=== PATIENT | male | born 1960 | race Caucasian/White ===

== ENCOUNTER 2016-04-19 13:54 | Emergency (ER) | payer MEDICAID ==
[2015-10-20 09:52] VITALS: BMI 28.5
[~2016-04-19 13:54] MED LIST: ASPIRIN81 MG PO; HYDROCODONE-APA1 TAB PO; METOPROLOL TART50 MG PO; NICODERM C1 PATCH .2 TRANSDERM; NITRO-DUR0.2 MG TRANSDERM; OMEPRAZOLE20 M1 PO; PLAVIX75 MG PO; PRAVACHOL20 MG PO; PREDNISONE20 MG PO; RESTORIL7.5 MG PO; SOMA350 MG PO; TYLENOL W/CODEI1 TAB PO; ULTRAM50 MG PO
[2016-04-19 14:32] LABS: BASOPHILS 0.3 % (0.0-2.0); EOSINOPHILS 4.4 % (0-7); HEMATOCRIT 34.4 % (42.0-54.0); HEMOGLOBIN 10.9 g/dL (13.5-17.5); IMMATURE GRANULOCYTES 0.2 % (0-5); LYMPHOCYTES 22.2 % (15-50); MCHC 31.7 g/dL (31.0-37.0); MCV 85.4 fL (80.0-100.0); MEAN PLATELET VOLUME 9.3 fL (7.4-10.4); NEUTROPHILS 64.9 % (40-80); RBC 4.03 10x6/uL (4.20-6.10); RDW 15.6 % (11.5-14.5); WBC 5.9 10x3/uL (4.8-10.8)
[2016-04-19 14:33] LABS: PLATELET COUNT 264 10x3/uL (130-400)
[2016-04-19 14:45] LABS: ALBUMIN 3.9 g/dL (3.4-5.0); ALKALINE PHOSPHATASE 148 U/L (46-116); ALT (SGPT) 151 U/L (10-68); BILIRUBIN - TOTAL 0.31 mg/dL (0.2-1.3); CALC OSMOLALITY 278 mosm/kg (275-300); CALCIUM 9.1 mg/dL (8.5-10.1); CARBON DIOXIDE 23.4 mmol/L (21.0-32.0); CHLORIDE - SERUM 103 mmol/L (98-107); GLUCOSE 81 mg/dL (74-106); POTASSIUM - SERUM 3.9 mmol/L (3.5-5.1); PROTEIN - SERUM 7.9 g/dL (6.4-8.2); SODIUM 139 mmol/L (136-145); UREA NITROGEN 18 mg/dL (7-18); eGFR NON AFRICAN AMERICAN 82 mL/min (90-120)
[2016-04-19 14:56] LABS: APPEARANCE CLEAR (CLEAR); BILIRUBIN NEGATIVE (NEGATIVE); COLOR YELLOW (YELLOW); GLUCOSE NEGATIVE (NEGATIVE); KETONE NEGATIVE (NEGATIVE); LEUKOCYTE ESTERASE NEGATIVE (NEGATIVE); NITRITE NEGATIVE (NEGATIVE); PROTEIN NEGATIVE (NEGATIVE); UROBILINOGEN NORMAL (NORMAL)
[2016-04-19 14:57] LABS: UDS - AMPHET NEGATIVE QUAL (NEGATIVE); UDS - BARB NEGATIVE QUAL (NEGATIVE); UDS - BENZO POSITIVE QUAL (NEGATIVE); UDS - COCAINE NEGATIVE QUAL (NEGATIVE); UDS - METH NEGATIVE QUAL (NEGATIVE); UDS - OPIATE POSITIVE QUAL (NEGATIVE); UDS - PCP NEGATIVE QUAL (NEGATIVE); UDS - THC NEGATIVE QUAL (NEGATIVE)
== END 2016-04-20 06:30 | disposition home or self-care (01) ==
LOC: D.ER 13:54
PROVIDERS: Emergency Medicine
DX: F32.9 Major depressive disorder, single episode, unspecified (principal); R45.851 Suicidal ideations; I10 Essential (primary) hypertension; Z93.3 Colostomy status; C20 Malignant neoplasm of rectum; F17.200 Nicotine dependence, unspecified, uncomplicated

== ENCOUNTER 2016-06-29 22:48 | Emergency (ER) | payer MEDICAID ==
[2015-10-20 09:52] VITALS: BMI 28.5
[2016-06-30 00:20] LABS: BASOPHILS 0.3 % (0-2); EOSINOPHILS 1.6 % (0-7); HEMATOCRIT 36.2 % (42.0-54.0); HEMOGLOBIN 11.5 g/dL (13.5-17.5); MCH 26.1 pg (26.0-34.0); MCHC 31.8 g/dL (31.0-37.0); MCV 82.1 fL (80.0-100.0); MONOCYTES 13.3 % (2-11); NEUTROPHILS 61.8 % (40-80); PLATELET COUNT 207 10x3/uL (130-400); RBC 4.41 10x6/uL (4.20-6.10); WBC 3.1 10x3/uL (4.8-10.8)
[2016-06-30 00:41] LABS: ALBUMIN 3.6 g/dL (3.4-5.0); ANION GAP 15.5 mmol/L (8-16); BILIRUBIN - TOTAL 0.78 mg/dL (0.2-1.3); CALCIUM 8.8 mg/dL (8.5-10.1); CARBON DIOXIDE 26.5 mmol/L (21.0-32.0); CREATININE - SERUM 1.1 mg/dL (0.6-1.3); MAGNESIUM - SERUM 1.7 mg/dL (1.8-2.4); PROTEIN - SERUM 7.7 g/dL (6.4-8.2)
[2016-06-30 02:50] LABS: APPEARANCE CLEAR (CLEAR); BILIRUBIN NEGATIVE (NEGATIVE); COLOR YELLOW (YELLOW); GLUCOSE NEGATIVE (NEGATIVE); KETONE NEGATIVE (NEGATIVE); LEUKOCYTE ESTERASE NEGATIVE (NEGATIVE); NITRITE NEGATIVE (NEGATIVE); PROTEIN NEGATIVE (NEGATIVE); SPECIFIC GRAVITY 1.015 (1.005-1.020); UROBILINOGEN NORMAL (NORMAL)
[2016-06-30 02:58] LABS: UDS - AMPHET POSITIVE QUAL (NEGATIVE); UDS - BARB NEGATIVE QUAL (NEGATIVE); UDS - BENZO POSITIVE QUAL (NEGATIVE); UDS - COCAINE NEGATIVE QUAL (NEGATIVE); UDS - METH NEGATIVE QUAL (NEGATIVE); UDS - OPIATE NEGATIVE QUAL (NEGATIVE); UDS - PCP NEGATIVE QUAL (NEGATIVE); UDS - THC NEGATIVE QUAL (NEGATIVE)
[2016-06-30 13:51] LABS: ALBUMIN 3.3 g/dL (3.4-5.0); BILIRUBIN - TOTAL 0.54 mg/dL (0.2-1.3); CALCIUM 8.7 mg/dL (8.5-10.1); CREATININE - SERUM 1.2 mg/dL (0.6-1.3); PROTEIN - SERUM 7.2 g/dL (6.4-8.2)
== END 2016-06-30 14:54 | disposition short-term general hospital (02) ==
LOC: D.ER 22:48
PROVIDERS: Emergency Medicine
DX: R45.851 Suicidal ideations (principal); R44.3 Hallucinations, unspecified; F45.9 Somatoform disorder, unspecified; E87.6 Hypokalemia; E83.42 Hypomagnesemia; D64.9 Anemia, unspecified; Z85.048 Personal history of other malignant neoplasm of rectum, rectosigmoid junction, and anus; F19.10 Other psychoactive substance abuse, uncomplicated; F17.200 Nicotine dependence, unspecified, uncomplicated; I10 Essential (primary) hypertension

== ENCOUNTER 2016-07-10 10:20 | Inpatient (IN) | payer MEDICAID ==
[~2016-07-10] VITALS: Ht 188 cm; Wt 101.5 kg
[2016-07-10 11:06] LABS: BASOPHILS 0.3 % (0-2); EOSINOPHILS 0 % (0-7); HEMATOCRIT 37.6 % (42.0-54.0); LYMPHOCYTES 13.4 % (15-50); MCH 26.1 pg (26.0-34.0); MCHC 31.9 g/dL (31.0-37.0); MCV 81.9 fL (80.0-100.0); MONOCYTES 8.6 % (2-11); NEUTROPHILS 77.7 % (40-80); RBC 4.59 10x6/uL (4.20-6.10); RDW 15.8 % (11.5-14.5); WBC 5.7 10x3/uL (4.8-10.8)
[2016-07-10 11:07] LABS: PLATELET COUNT 280 10x3/uL (130-400)
[2016-07-10 11:20] LABS: ALBUMIN 3.7 g/dL (3.4-5.0); ANION GAP 16.1 mmol/L (8-16); BILIRUBIN - TOTAL 0.46 mg/dL (0.2-1.3); CALCIUM 8.3 mg/dL (8.5-10.1); CARBON DIOXIDE 26.3 mmol/L (21.0-32.0); CREATININE - SERUM 1.1 mg/dL (0.6-1.3); POTASSIUM - SERUM 3.4 mmol/L (3.5-5.1); PROTEIN - SERUM 7.7 g/dL (6.4-8.2)
--- NOTE | 2016-07-10 20:16 | NUR ---
RECIEVED PT FROM ER PER STRETCHER. ABLE TO GET UP AND WALK TO BED ON HIS OWN. VS MONITOR. ADMISSION HISTORY AND ASSESSMENT INITIATED. CALL LIGHT IN REACH.
[2016-07-10 20:20] LABS: CKMB 6.2 U/L (0.0-3.6); CREATINE KINASE 215 UL (21-232); TROPONIN-I 0.024 ng/mL (0.000-0.060)
[2016-07-10 20:29] VITALS: BP 176/118
[2016-07-11] VITALS (8 sets, daily range): BP systolic 127–158; BP diastolic 68–104; Ht 188 cm; Wt 101.5 kg
[2016-07-11 01:21] LABS: CREATINE KINASE 190 UL (21-232); TROPONIN-I 0.026 ng/mL (0.000-0.060)
--- NOTE | 2016-07-11 06:16 | NUR ---
PT PROVIDED WITH URINAL TO OBTAIN ORDERED URINE SPECIMEN.
--- NOTE | 2016-07-11 06:55 | NUR ---
URINE SPECIMEN SENT TO LAB. PT HAS ASKED FOR PAIN MEDS. EXPLAINED THAT THERE ARE NO CURRENT ORDERS AND WHEN MD ROUNDS PAIN NEEDS WILL BE ADDRESSED.
[2016-07-11 07:18] LABS: APPEARANCE CLEAR (CLEAR); BILIRUBIN NEGATIVE (NEGATIVE); COLOR YELLOW (YELLOW); GLUCOSE NEGATIVE (NEGATIVE); KETONE NEGATIVE (NEGATIVE); LEUKOCYTE ESTERASE NEGATIVE (NEGATIVE); NITRITE NEGATIVE (NEGATIVE); PROTEIN NEGATIVE (NEGATIVE); SPECIFIC GRAVITY 1.015 (1.005-1.020); UROBILINOGEN NORMAL (NORMAL)
[2016-07-11 07:46] LABS: CKMB 6.3 U/L (0.0-3.6); CREATINE KINASE 158 UL (21-232); TROPONIN-I < 0.017 ng/mL (0.000-0.060)
--- NOTE | 2016-07-11 07:54 | NUR ---
AM ROUNDS - PT AWAKE ON RIGHT SIDE. C/O RECTAL PAIN. RIGHT WRIST AT 100CC/HR. MONITOR SHOWS SR, HR 79. WILL CONTINUE TO MONITOR.
--- NOTE | 2016-07-11 11:35 | HP ---
PATIENT: SERGE BOWLES MEDICAL RECORD: [id number] ACCOUNT: [id number] LOCATION:[address] : 60 ADMISSION DATE: 07/10/16 HISTORY AND PHYSICAL EXAMINATION HISTORY OF PRESENT ILLNESS: Mr. Bowles is a pleasant 55-year-old white male that presents to the Emergency Room with a 1 day history of abdominal pain, has a known history of colon cancer and underwent a colectomy by Dr. Mina several years ago. Dr. Delatorre is his oncologist, he has not seen her in some time, also has seen Dr. Schumacher in the past, has a history of alcohol abuse, was in this institution last September with a non-Q-wave CT. He had been drinking pretty heavy. He went to [facility] at that time and apparently remained sober, has started drinking about 3 months ago, has been drinking every day, states he last drank yesterday, drank a few beers; however, his alcohol level is still 12. His lipase is normal. CT really shows nothing acute going on. He is a little tachycardic. There may be some withdrawal going on here, could be an early pancreatitis or something to do with his previous cancer. He is going to be admitted at this time, he is hypertensive, but he appears stable to the floor. PAST MEDICAL HISTORY: Significant for chronic alcohol abuse, coronary artery disease with previous CT and stents approximately 10 months ago, history of rectal cancer with colostomy. He has had a history of depression, was seen by psychiatry last year and diagnosed with bipolar disease with predominant depression features. He has had stents in his kidneys. PAST SURGICAL HISTORY: Include rectal cancer status post colostomy, right hip surgery, PTCA, renal stents. ALLERGIES: None known. HOME MEDICATIONS: None at this time. FAMILY HISTORY: Significant for cardiac disease. SOCIAL HISTORY: He admits to every day alcohol, does not smoke. REVIEW OF SYSTEMS: Denies fever, has had predominantly left flank and left upper abdominal pain, has felt a little tightness in his chest. No shortness of breath, some nausea. No vomiting. Output has been a little less out of ostomy recently, he is having some pain around the ostomy site itself. No urinary symptoms. PHYSICAL EXAMINATION: GENERAL: He is alert. He is oriented this time. He is cooperative. HEENT: Head is normocephalic, sclerae nonicteric. Mucous membranes are moist. NECK: Soft and supple. HEART: Slightly tachycardic, but regular. LUNGS: Clear. ABDOMEN: Soft. Ostomy in left lower abdomen. EXTREMITIES: Reveal no edema. NEUROLOGIC: Without any gross focal deficits. IMPRESSION: 1. Abdominal pain. 2. Alcohol abuse with possible early withdrawal. HISTORY AND PHYSICAL [id number] SERGE BOWLES 3. History of rectal cancer status post colostomy, history of bipolar disease with depressive features. PLAN: Admit, repeat labs and pancreatic enzymes, banana bag, p.r.n. benzos, p.r.n. clonidine for hypertension and other signs of withdrawal. We will check a CEA level. We will reassess in a.m. and consider GI and/or surgery consult, pending on reexamination and need. TRANSINT:[id number] Voice Confirmation ID: [id number] DOCUMENT ID: [id number] ELISABET SOOD DO at 1135 CC: [id number] DICTATION DATE: 07/10/161837 HEAVY EQUIPMENT SERVICE TECHNICIAN: 07/10/162049 ADM IN [facility] [address] [id number]
[2016-07-11 11:51] LABS: HEMATOCRIT 32.3 % (42.0-54.0); HEMOGLOBIN 9.9 g/dL (13.5-17.5); MCH 25.4 pg (26.0-34.0); MCHC 30.7 g/dL (31.0-37.0); MEAN PLATELET VOLUME 9.1 fL (7.4-10.4); RBC 3.89 10x6/uL (4.20-6.10); RDW 15.8 % (11.5-14.5)
[2016-07-11 11:59] LABS: ALKALINE PHOSPHATASE 131 U/L (46-116); AMYLASE - SERUM 45 U/L (25-115); BILIRUBIN - TOTAL 0.85 mg/dL (0.2-1.3); CALC OSMOLALITY 277 mosm/kg (275-300); CALCIUM 7.9 mg/dL (8.5-10.1); CARBON DIOXIDE 26.2 mmol/L (21.0-32.0); CHLORIDE - SERUM 105 mmol/L (98-107); CREATININE - SERUM 0.9 mg/dL (0.6-1.3); GLUCOSE 88 mg/dL (74-106); LIPASE 75 U/L (73-393); MAGNESIUM - SERUM 1.6 mg/dL (1.8-2.4); POTASSIUM - SERUM 3.8 mmol/L (3.5-5.1); PROTEIN - SERUM 6.1 g/dL (6.4-8.2); SODIUM 140 mmol/L (136-145); UREA NITROGEN 12 mg/dL (7-18); eGFR NON AFRICAN AMERICAN > 90 mL/min (90-120)
[2016-07-11 12:06] LABS: ALT (SGPT) 41 U/L (10-68)
[2016-07-11 12:09] LABS: PLATELET COUNT 188 10x3/uL (130-400); WBC 2.9 10x3/uL (4.8-10.8)
[2016-07-11 12:44] LABS: LYMPHOCYTES 28 % (15-50); MONOCYTES 3 % (2-11); NEUTROPHILS 69 % (40-80); PLATELET ESTIMATE DECREASED
--- NOTE | 2016-07-11 14:58 | NUR ---
SCD'S ON YAEL LE
[2016-07-11 15:56] LABS: % SATURATION 35 % (15-55); IRON 125 ug/dl (35-150); TOTAL IRON BIND CAPACITY 355 ug/dl (260-445); UNSAT IRON BIND CAPACITY 230 ug/dl (150-375)
[2016-07-11 16:12] LABS: FERRITIN 37 ng/mL (3-244); LDH 150 U/L (85-227)
--- NOTE | 2016-07-11 19:15 | NUR ---
ND OUT OF ROOM FOR MRI
--- NOTE | 2016-07-11 19:45 | NUR ---
PT BACK FROM MRI, ASKING FOR ATIVAN, WILL GIVE ORDER, CALL LIGHT IN REACH, BED IS LOW, SRX2, WILL CONTINUE PLAN OF CARE
--- NOTE | 2016-07-11 20:14 | NUR ---
EARLY CHILDHOOD ASSOCIATE AT BEDSIDE TO OBTAIN VITALS, CALL LIGHT IN REACH. WILL CONTINUE WITH PLAN OF CARE.
[2016-07-12] VITALS: BP 120/69
[2016-07-12 04:00] VITALS: BP 141/88
--- NOTE | 2016-07-12 04:18 | NUR ---
ASSESSMENT COMPLETE, SEE FLOWSHEET, BED IS LOW, SRX2, CALL LIGHT IN REACH, WILL CONTINUE PLAN OF CARE
[2016-07-12 05:14] LABS: BASOPHILS 0.4 % (0-2); EOSINOPHILS 2.2 % (0-7); HEMATOCRIT 32.1 % (42.0-54.0); HEMOGLOBIN 10.1 g/dL (13.5-17.5); LYMPHOCYTES 24.7 % (15-50); MCH 25.8 pg (26.0-34.0); MCHC 31.5 g/dL (31.0-37.0); MCV 81.9 fL (80.0-100.0); MEAN PLATELET VOLUME 8.8 fL (7.4-10.4); NEUTROPHILS 64.7 % (40-80); PLATELET COUNT 166 10x3/uL (130-400); RBC 3.92 10x6/uL (4.20-6.10); RDW 15.5 % (11.5-14.5); WBC 2.8 10x3/uL (4.8-10.8)
[2016-07-12 05:56] LABS: ALKALINE PHOSPHATASE 125 U/L (46-116); ALT (SGPT) 46 U/L (10-68); CALC OSMOLALITY 276 mosm/kg (275-300); CALCIUM 7.9 mg/dL (8.5-10.1); CARBON DIOXIDE 26.9 mmol/L (21.0-32.0); CHLORIDE - SERUM 105 mmol/L (98-107); GLUCOSE 86 mg/dL (74-106); POTASSIUM - SERUM 3.5 mmol/L (3.5-5.1); PROTEIN - SERUM 6.1 g/dL (6.4-8.2); SODIUM 140 mmol/L (136-145); UREA NITROGEN 9 mg/dL (7-18); eGFR NON AFRICAN AMERICAN 82 mL/min (90-120)
--- NOTE | 2016-07-12 07:04 | CN ---
PATIENT NAME:SERGE BOWLES MEDICAL RECORD: [id number] : 60 LOCATION:[address]. D.2138 ADMIT DATE: 07/11/16 ACCOUNT: [id number] CONSULTING PHYSICIAN: DARRON BUI MD REFERRING PHYSICIAN: ELISABET SOOD DO DATE OF CONSULTATION: 07/11/2016 Surgical Consultation CONSULTING PHYSICIAN: Darron Bui MD REASON FOR CONSULTATION: Pelvic pain. HISTORY OF PRESENT ILLNESS: This 55-year-old male who was admitted for abdominal pain. He has a history of rectal cancer. He had APR performed by Dr. Mina several years ago. Dr. Delatorre is his oncologist. He states that he just had his third low back surgery. He is also complaining of severe low back pain. He said that ever since the fall, he has had perineal pain at the site of his perineal closure. The pain is constant, dull, throbbing, is currently of 7/10 it does not radiate. He cannot tell if it is associated with his low back pain or not. PAST MEDICAL HISTORY: Alcoholism, coronary artery disease, rectal cancer, depression, bipolar. PAST SURGICAL HISTORY: Renal artery stent, coronary artery stent, abdominoperineal resection with end colostomy. ALLERGIES: No known drug allergies. FAMILY HISTORY: Significant for cardiac disease. SOCIAL HISTORY: He drinks daily. He does not smoke. REVIEW OF SYSTEMS: A 12-point review of systems was obtained, pertinent positive and negative as per the HPI. PHYSICAL EXAMINATION: VITAL SIGNS: Stable. He is afebrile. CONSTITUSIONAL: A well-developed and well-nourished male in mild distress. PSYCHIATRIC: He is alert and oriented times 3. EYES: Extraocular muscles are intact. EAR, NOSE, AND THROAT: Normal dentition. NECK: Supple. CARDIOVASCULAR: Normal sinus rhythm. LUNGS: He has got decreased breath sounds bilaterally. ABDOMEN: Soft, obese, nondistended and nontender. Left lower quadrant colostomy with gas and stool in the bag. The patient was eating dinner during our visit. He has point tenderness at a well-healed perineal incision. No overlying skin changes, no erythema, no fluctuance, no masses. SKIN: Warm and dry with normal turgor. EXTREMITIES: He is neurovascularly intact. No edema. NEUROLOGIC: GCS of 15 with no focal deficits. LABORATORY DATA: Reviewed. Please see electronic medical record for full list CONSULT REPORT [id number] BOWLESSERGE NAVA Quynh of his lab values. HOME MEDICATIONS: Please see electronic medical record for full list of the patient's home medications. IMAGING: Abdominal x-ray and CT of the abdomen and pelvis, the images were personally reviewed. There are no acute abnormalities noted within the peritoneum at the area in question on the CT scan. He has a normal bowel gas pattern. IMPRESSION: A 55-year-old male with low back and perineal pain. History of rectal cancer with abdominoperineal resection, alcoholism. PLAN: We will follow up on patient pending CEA level. We will order a pelvic MRI to evaluate to rule out recurrent and/or injury associated with his recent fall. Continue DVT prophylaxis. Continue GI prophylaxis. Continue regular diet as tolerated. IV narcotics for pain control. TRANSINT:[id number] Voice Confirmation ID: [id number] DOCUMENT ID: [id number] DARRON BUI MD at 0704 CC: [id number] DICTATION DATE: 07/11/16 183 SHIRT BANDER: 07/12/16 0133 ADM IN [facility] [address] [id number]
--- NOTE | 2016-07-12 07:15 | NUR ---
AM ROUNDS DONE AT THIS TIME. PT IN BED, ASKED FOR ATIVAN AND PAIN MED. INFORMED PT THAT I WOULD BRING HIM THE ATIVAN BUT PAIN MED IS NOT DUE YET. PT STATED " I AM GOING TO NEED A NEW IV PRETTY SOON, IT'S STILL WORKING BUT I HAVE A FEELING THAT IT NOT GOING TO WORK ANYMORE IN A LITTLE BIT". CHECKED IV, NO S/S OF INFILTRATION, IV FLUSHES AND DRAWS BACK GOOD. INFORMED PT THAT I WOULD CHECK IT AGAIN IN A LITTLE WHILE. PT DENIES ANY OTHER NEEDS AT THIS ITME. CALL LIGHT IN REACH, NAD NOTED, WILL CONTINUE TO MONITOR.
--- NOTE | 2016-07-12 07:17 | NUR ---
ADMINISTERED 2MG OF ATIVAN PER PT REQUEST. PT IN BED, NAD NOTED, PT DENIES ANY OTHER NEEDS AT THIS TIME. CALL IN REACH, NAD NOTED, WILL CONTINUE TO MONITOR.
--- NOTE | 2016-07-12 08:10 | NUR ---
ADMINISTERED MORNING MEDICATIONS, AND 50MG OF ULTAM FOR PAIN LEVEL OF 7/10. IVBP ZOSYN STARTED INFUSING AT THIS TIME. PT DENIES ANY NEEDS, NAD NOTED, WILL CONTINUE TO MONITOR.
[2016-07-12 08:26] VITALS: BP 138/94
[2016-07-12 12:38] VITALS: BP 107/73
--- NOTE | 2016-07-12 14:38 | NUR ---
SCANED IV ATIVAN EARLIER BUT IV WAS INFILTRATED, SO HAD TO TRY TO START NEW ONE. LEFT MEDITECH UP WHILE TRYING TO START A NEW IV, AND AFTER A WHILE THE COMPUTER LOGGED ME OUT AND I HAD ALREADY PLACED THE VIAL IN THE SHARPS. AFTER NEW IV WAS STARTED IN THE ROOT FOOT BY NICOLE DIAS. 2MG OF ATIVAN GIVEN AND 50MG OF TRAMADOL FOR PAIN LEVEL OF 7/10. PT CASIMIRO ANY OTHER NEEDS AT THIS TIME. CALL LIGHT IN REACH, DELROY OROZCO, WILL CONTINUE TO MONITOR.
--- NOTE | 2016-07-12 15:33 | NUR ---
Patient Name: SERGE BOWLES Admission Status: ER Accout number: [id number] Admission Date: 07-11-2016 : 1960 Admission Diagnosis: Attending: HIRAM Current LOS: 1 Anticipated DC Date: Planned Disposition: Home Primary Insurance: MEDICAID [place] Discharge Planning Comments: * Is the patient Alert and Oriented? Yes 0 * How many steps to enter\exit or inside your home? NONE 0 * PCP DR. MATA; PT REPORTS HE WILL BE GETTING HIMSELF SET UP WITH PAIN MANAGEMENT IN [place] VERY SOON 0 * Pharmacy [facility]. 0 * Preadmission Environment Home Alone 0 * ADLs Independent 0 * Equipment None 0 * Other Equipment NO MEDICAL EQUIPMENT PROVIDER PREFERENCE 0 * List name and contact numbers for known caregivers / representatives who currently or will assist patient after discharge: SURESH REYNOLDS, , 0 * Community resources currently utilized None 0 * Please name any agencies selected above. NONE 0 * Additional services required to return to the preadmission environment? No 0 * Can the patient safely return to the preadmission environment? Yes 0 * Has this patient been hospitalized within the prior 30 days at any hospital? No 0 CM MET WITH PT IN ROOM TO DISCUSS DISCHARGE PLANNING AND NEEDS. PT REPORTS LIVING IN [place] INDEPENDENTLY AND WITH A ROOM MATE WHICH MAKES THE HOTEL ROOM AFFORDABLE FOR PT. PT HAS NO MEDICAL EQUIPMENT AND NO OUTSIDE SERVICES ASSISTING IN THE HOME. CM DISCUSSED AVAILABILITY OF HOME HEALTH, REHAB SERVICES AND MEDICAL EQUIPMENT. PT DENIES DISCHARGE NEEDS, REPORTS HE WILL TAKE THE BUS FOR DISCHARGE WHEN HE LEAVES. PT REPORTS HE HAD COURT YESTERDAY AT [place] [address] AND NEEDS CM TO FAX EXCUSE FOR HIM SO THAT HE WILL NOT HAVE A WARRANT FOR HIS ARREST. CM FAXED PATIENT LETTER TO DISTRICT COURT, [phone], WITH TREATMENT DATES. PT NOTIFIED, DENIES FURTHER DISCHARGE NEEDS. Survey Superintendent: Deshawn Flower
[2016-07-12 16:56] VITALS: BP 126/94
--- NOTE | 2016-07-12 18:03 | NUR ---
ADMINISTERED 0.5MG OF DILAUDID FOR PAIN LEVEL OF 8/10. PT DENIES ANY OTHER NEEDS AT THIS TIME. CALL LIGHT IN REACH, NAD NOTED, WILL CONTINUE TO MONITOR.
--- NOTE | 2016-07-12 19:20 | NUR ---
RECEIVED REPORT, PT WAITING ON ULTRA SOUND, BED IS LOW, SRX2, CALL LIGHT IN REACH, WILL CONTINUE PLAN OF CARE
[2016-07-12 20:00] VITALS: BP 115/70
--- NOTE | 2016-07-12 22:46 | NUR ---
CALL LIGHT IN REACH, WILL CONTINUE WITH PLAN OF CARE.
[2016-07-13] VITALS: BP 121/87
[2016-07-13 04:00] VITALS: BP 105/63
--- NOTE | 2016-07-13 04:45 | NUR ---
ASSESSMENT COMPLETE, SEE FLOWSHEET, BED IS LOW, SRX2, CALL LIGHT IN REACH, WILL CONTINUE PLAN OF CARE
[2016-07-13 06:15] LABS: BASOPHILS 0.2 % (0-2); EOSINOPHILS 3.8 % (0-7); HEMATOCRIT 34.7 % (42.0-54.0); HEMOGLOBIN 10.8 g/dL (13.5-17.5); IMMATURE GRANULOCYTES 0.2 % (0-5); MCH 25.7 pg (26.0-34.0); MCHC 31.1 g/dL (31.0-37.0); MCV 82.4 fL (80.0-100.0); MEAN PLATELET VOLUME 8.8 fL (7.4-10.4); MONOCYTES 2.3 % (2-11); NEUTROPHILS 89.5 % (40-80); PLATELET COUNT 176 10x3/uL (130-400); RBC 4.21 10x6/uL (4.20-6.10); RDW 15.8 % (11.5-14.5)
[2016-07-13 06:18] LABS: WBC 4.7 10x3/uL (4.8-10.8)
[2016-07-13 06:39] LABS: ALBUMIN 2.9 g/dL (3.4-5.0); ANION GAP 13.3 mmol/L (8-16); BILIRUBIN - TOTAL 0.72 mg/dL (0.2-1.3); CALCIUM 8.1 mg/dL (8.5-10.1); CREATININE - SERUM 1.2 mg/dL (0.6-1.3); POTASSIUM - SERUM 3.3 mmol/L (3.5-5.1); PROTEIN - SERUM 6.6 g/dL (6.4-8.2)
--- NOTE | 2016-07-13 07:14 | NUR ---
AM ROUNDS- PT IN BED, ASKING FOR PAIN MEDS NOT TIME FOR HIM TO HAVE THEM AGAIN, PT INFOMRED. CALL LIGHT IN REACH, NAD NOTED,WILL CONTINUE TO MONITOR.
[2016-07-13 08:30] VITALS: BP 131/78
--- NOTE | 2016-07-13 08:31 | NUR ---
ADMINISTERED 0.5MG OF DILAUDID FOR PAIN LEVEL OF 8/10. PT IN BED, DENIES ANY OTHER NEEDS AT THIS TIME. CALL LIGHT IN REACH, DELROY OROZCO, WILL CONT TO MONITOR.
[2016-07-13 11:51] VITALS: BP 110/75
--- NOTE | 2016-07-13 12:41 | NUR ---
0.5MG OF DILAUDID GIVEN FOR PAIN LEVEL OF 8/10.
[2016-07-13 15:59] VITALS: BP 125/64
--- NOTE | 2016-07-13 16:48 | NUR ---
ADMINISTERED 0.5MG OF DILAUDID FOR PAIN LEVEL OF 8/10, ALSO GAVE 2MG OF ATIVAN PER PT REQUEST. NAD NOTED, CALL LIGHT IN REACH, WILL CONTINUE TO MONITOR.
[2016-07-13 18:06] LABS: CKMB 1.4 U/L (0.0-3.6); CREATINE KINASE 52 UL (21-232)
[2016-07-13 18:09] LABS: TROPONIN-I < 0.017 ng/mL (0.000-0.060)
--- NOTE | 2016-07-13 19:25 | NUR ---
RECEIVED REPORT, PT NPO FOR CTA, RADIOLOGY IS HERE, WAS TOLD PT NEEDS 20 GAUGE IV IN ARM, BEAR WADDELL RN WAS ABLE TO START IV IN L.FA ON 2ND ATTEMPT,BED IS LOW, SRX2, CALL LIGHT IN REACH, WILL CONTINUE PLAN OF CARE
[2016-07-13 20:21] VITALS: BP 111/74
--- NOTE | 2016-07-13 21:24 | NUR ---
GAVE PETER ORDER, PT NOW WENT FOR CTA
--- NOTE | 2016-07-13 21:54 | NUR ---
BACK FROM CTA, ASKING FOR LIBRIUM, WILL GIVE
[2016-07-13 22:29] LABS: CKMB 1.1 U/L (0.0-3.6); CREATINE KINASE 54 UL (21-232)
[2016-07-13 22:30] LABS: TROPONIN-I < 0.017 ng/mL (0.000-0.060)
--- NOTE | 2016-07-13 23:14 | NUR ---
PT RESTING WELL WITHOUT C/O OR DISTRESS NOTED. CALL LIGHT WITHIN REACH. NO NEEDS VOICED. WILL CONT TO MONITOR.
[2016-07-14 00:25] VITALS: BP 115/77
[2016-07-14 04:33] VITALS: BP 108/69
[2016-07-14 05:40] LABS: BASOPHILS 0 % (0-2); EOSINOPHILS 7.1 % (0-7); HEMATOCRIT 31.1 % (42.0-54.0); HEMOGLOBIN 9.7 g/dL (13.5-17.5); IMMATURE GRANULOCYTES 0.3 % (0-5); LYMPHOCYTES 7.4 % (15-50); MCH 25.9 pg (26.0-34.0); MCHC 31.2 g/dL (31.0-37.0); MCV 82.9 fL (80.0-100.0); MEAN PLATELET VOLUME 9.1 fL (7.4-10.4); MONOCYTES 3.7 % (2-11); NEUTROPHILS 81.5 % (40-80); PLATELET COUNT 164 10x3/uL (130-400); RBC 3.75 10x6/uL (4.20-6.10); RDW 15.9 % (11.5-14.5)
[2016-07-14 05:45] LABS: WBC 3.3 10x3/uL (4.8-10.8)
[2016-07-14 06:02] LABS: ALBUMIN 2.7 g/dL (3.4-5.0); ALKALINE PHOSPHATASE 95 U/L (46-116); ALT (SGPT) 44 U/L (10-68); CALC OSMOLALITY 273 mosm/kg (275-300); CALCIUM 8.2 mg/dL (8.5-10.1); CARBON DIOXIDE 26.8 mmol/L (21.0-32.0); CHLORIDE - SERUM 104 mmol/L (98-107); CKMB 1.6 U/L (0.0-3.6); CREATINE KINASE 55 UL (21-232); CREATININE - SERUM 1.1 mg/dL (0.6-1.3); GLUCOSE 80 mg/dL (74-106); POTASSIUM - SERUM 3.3 mmol/L (3.5-5.1); PROTEIN - SERUM 6.1 g/dL (6.4-8.2); SODIUM 138 mmol/L (136-145); TROPONIN-I < 0.017 ng/mL (0.000-0.060); UREA NITROGEN 11 mg/dL (7-18); eGFR NON AFRICAN AMERICAN 74 mL/min (90-120)
--- NOTE | 2016-07-14 07:00 | NUR ---
RECEIVED REPORT. ASSUMED CARE OF PATIENT. PATIENT WITH EYES CLOSED, RESTING ON LEFT LATERAL SIDE. EASILY AROUSED. TELEMETRY LEADS REAPPLIED AND TURNED ON AT THIS TIME. CALL LIGHT WITHIN REACH. DENIES NEEDS AT THIS TIME OTHER THAN TO GO BACK TO SLEEP. NO DISTRESS.
[2016-07-14 08:00] VITALS: BP 121/77
[2016-07-14 12:00] VITALS: BP 94/61
--- NOTE | 2016-07-14 13:29 | NUR ---
MEDICATED FOR PAIN AT THIS TIME. NO DISTRESS.
[2016-07-14 16:00] VITALS: BP 108/56
--- NOTE | 2016-07-14 17:22 | NUR ---
MEDICATED FOR PAIN AT THIS TIME. NO DISTRESS.
--- NOTE | 2016-07-14 19:00 | NUR ---
INITIAL ROUNDS MADE. PT LYING IN BED RESTING WELL WITH EYES CLOSED, AWAKENED EASILY WHEN NAME CALLED. WILL CONT TO MONITOR. CALL LIGHT IN REACH. NO NEEDS VOICED.
[2016-07-14 20:00] VITALS: BP 128/86
[2016-07-15] VITALS (7 sets, daily range): BP systolic 110–144; BP diastolic 73–96
--- NOTE | 2016-07-15 05:55 | NUR ---
PHLEBO IN ROOM FOR AM LAB DRAW.
[2016-07-15 06:21] LABS: BASOPHILS 0 % (0-2); EOSINOPHILS 9.5 % (0-7); HEMATOCRIT 32.9 % (42.0-54.0); HEMOGLOBIN 10.3 g/dL (13.5-17.5); LYMPHOCYTES 12.5 % (15-50); MCH 26.1 pg (26.0-34.0); MCHC 31.3 g/dL (31.0-37.0); MCV 83.3 fL (80.0-100.0); MEAN PLATELET VOLUME 8.8 fL (7.4-10.4); MONOCYTES 4.6 % (2-11); NEUTROPHILS 73.4 % (40-80); PLATELET COUNT 159 10x3/uL (130-400); RBC 3.95 10x6/uL (4.20-6.10); RDW 16.1 % (11.5-14.5)
[2016-07-15 06:39] LABS: ALBUMIN 2.8 g/dL (3.4-5.0); ALKALINE PHOSPHATASE 97 U/L (46-116); ALT (SGPT) 55 U/L (10-68); BILIRUBIN - TOTAL 0.34 mg/dL (0.2-1.3); CALCIUM 8.4 mg/dL (8.5-10.1); CARBON DIOXIDE 24.7 mmol/L (21.0-32.0); CHLORIDE - SERUM 105 mmol/L (98-107); CHOL - HDL RATIO 5.4 ratio (2.3-4.9); CHOLESTEROL, TOTAL 150 mg/dL (0-200); GLUCOSE 94 mg/dL (74-106); HDL CHOLESTEROL 28 mg/dL (32-96); LDL CHOLESTEROL 89 mg/dL (0-100); LDL-HDL RATIO 3.2 ratio (1.5-3.5); POTASSIUM - SERUM 3.7 mmol/L (3.5-5.1); PROTEIN - SERUM 6.5 g/dL (6.4-8.2); SODIUM 141 mmol/L (136-145); TRIGLYCERIDE 165 mg/dL (30-200); eGFR NON AFRICAN AMERICAN 82 mL/min (90-120)
[2016-07-15 06:40] LABS: CALC OSMOLALITY 278 mosm/kg (275-300); UREA NITROGEN 7 mg/dL (7-18)
--- NOTE | 2016-07-15 07:00 | NUR ---
RECEIVED REPORT. ASSUMED CARE OF PATIENT. CALL LIGHT WIHTIN REACH. RESP EVEN AND UNLABORED. AWAKE/ORIENTED WITH ATTENTIN TOWARD TELEVISION. DENIES NEEDS AT THIS TIME. NO DISTRESS.
--- NOTE | 2016-07-15 09:49 | NUR ---
MEDICATED FOR PAIN AT THIS TIME. NO DISTRESS.
--- NOTE | 2016-07-15 10:56 | NUR ---
PAGED DUE TO PATIENT IS EXPERIENCING SLIGHT RASH FROM HEAD TO TOE AFTER RECEIVING ANTIBIOTIC THERAPY. PATIENT STATES THAT HE IS SENSITIVE TO ANX AND THAT THIS IS NOT THE FIRST TIME THAT HE HAS BROKEN OUT INTO A RASH BUT THE PHYSICIANS HAVE JUST GIVEN HIM BENADRYL. 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 THERE IS NO ACTIVE ORDER FOR BENADRYL AT THIS TIME.
--- NOTE | 2016-07-15 11:59 | NUR ---
RECEIVED NEW ORDERS FROM FOR BENADRYL FOR RASH AND ITCHING AFTER ANTIBIOTIC WAS ADMINISTERED. BENADRYL ADMINISTERED AT THIS TIME. ALSO INFORMED PATIENT OF PIPIDA SCAN IN AM AND THAT HE WILL BE NPO AFTER MIDNIGHT. NO DISTRESS. CALL LIGHT WITHIN REACH.
--- NOTE | 2016-07-15 13:41 | NUR ---
SPOKE WITH AND RECIEVED NEW ORDERS TO CHANGE ANTIBIOTIC TO LEVAQUIN 500MG IV EVERY 24 HOURS DUE TO ZOSYN IS CAUSING PATIENT TO HAVE A RASH AND ITCH. NEW ORDERS INPUTTED TO SYSTEM.
--- NOTE | 2016-07-15 15:25 | NUR ---
MEDICATED FOR PAIN AT THIS TIME. NO DISTRESS.
--- NOTE | 2016-07-15 17:29 | NUR ---
RESTING IN BED WITH EYES CLOSED. CONSUMED 100% OF PM MEAL. DENIES NEEDS AT THIS TIME. NO DISTRESS.
--- NOTE | 2016-07-15 19:00 | NUR ---
INITIAL ROUNDS MADE. PT SITTING UP IN BED WATCHING TV. DENIES NEEDS OR C/O AT THIS TIME. CALL LIGHT IN REACH. WILL CONT TO MONITOR.
--- NOTE | 2016-07-15 21:07 | NUR ---
IV IN RIGHT FOOT REMOVED WITH CATH TIP INTACT.
--- NOTE | 2016-07-16 00:27 | NUR ---
BARGE ENGINEER AT BEDSIDE FOR VS. NEEDS ADDRESSED AT THIS TIME. CALL LIGHT IN REACH. WILL CONT TO MONITOR.
[2016-07-16 03:44] VITALS: BP 131/75
--- NOTE | 2016-07-16 04:58 | NUR ---
IV OUT, PT REFUSES RESITE AT THIS TIME.
[2016-07-16 05:55] LABS: ALBUMIN 2.8 g/dL (3.4-5.0); ALKALINE PHOSPHATASE 93 U/L (46-116); CALC OSMOLALITY 280 mosm/kg (275-300); CALCIUM 8.5 mg/dL (8.5-10.1); CARBON DIOXIDE 27.5 mmol/L (21.0-32.0); CHLORIDE - SERUM 106 mmol/L (98-107); CREATININE - SERUM 0.9 mg/dL (0.6-1.3); GLUCOSE 90 mg/dL (74-106); POTASSIUM - SERUM 3.4 mmol/L (3.5-5.1); PROTEIN - SERUM 6.6 g/dL (6.4-8.2); SODIUM 142 mmol/L (136-145); UREA NITROGEN 7 mg/dL (7-18); eGFR NON AFRICAN AMERICAN > 90 mL/min (90-120)
[2016-07-16 05:56] LABS: ALT (SGPT) 69 U/L (10-68)
[2016-07-16 06:24] LABS: BASOPHILS 0.5 % (0-2); EOSINOPHILS 14.9 % (0-7); HEMATOCRIT 32.8 % (42.0-54.0); IMMATURE GRANULOCYTES 0.5 % (0-5); LYMPHOCYTES 20.8 % (15-50); MCH 25.4 pg (26.0-34.0); MCHC 30.5 g/dL (31.0-37.0); MCV 83.5 fL (80.0-100.0); MONOCYTES 8.1 % (2-11); NEUTROPHILS 55.2 % (40-80); PLATELET COUNT 179 10x3/uL (130-400); RBC 3.93 10x6/uL (4.20-6.10); RDW 16.2 % (11.5-14.5); WBC 2.2 10x3/uL (4.8-10.8)
--- NOTE | 2016-07-16 07:31 | NUR ---
RADIOLOGY AT BEDSIDE TO TAKE PT FOR PIPIDA SCAN HOWEVER PT DOESNT HAVE IV ACCESS WITH SEVERAL ATTEMPTS SO WE ARE CURRENTLY AWAITING VASCULAR NURSE TO TRY PLACEMENT. UPON DISCUSSING THIS WITH PT I NOTICED HIS R.EYE WAS SWOLLEN SHUT AND HIS UPPER LIP IS GREATLY SWOLLEN. PT STATES "I HAD AN ALLERGIC REACTION TO THE ANBX, (LEVAQUIN) AND I TOLD MY NURSE LAST NIGHT" NO OTHER S/S NOTED, PAGED BAR MUNIZ TO SEE ABOUT A BENADRYL ORDER. PT RESTING AND STATES HES IN PAIN HOWEVER HE CANT HAVE NARCOTICS FOR THE TEST. CL IN REACH, BED IN LOWEST, SIDE RAILS X2. WILL CTM.
[2016-07-16 08:01] VITALS: BP 136/84
--- NOTE | 2016-07-16 08:45 | NUR ---
IV ACCESS-20 GAUGE INSERTED IN LEFT HAND FOR ACCESS. RAFA RUSSO RN
--- NOTE | 2016-07-16 09:02 | NUR ---
PROVIDED PT WITH PRN BENADRYL FOR ALLERGIC REACTION TO LEVAQUIN. PT STATES IT STARTED WITH SKIN IRRITATION AND HIVES YESTERDAY THEN OVERNIGHT IS WHEN HIS LIP AND EYE BEGAN TO SWOLE HE STATES. PUSHED BENADRYL VIA NEW L.HAND PIV WITH DRSG INTACT AND SWAB CAPS IN USE. PT VOICED THANKS AND STATES HE IS READY FOR HIS TEST TO BE OVER R/T SEVERE ACHING ALL OVER AND HE WANTS HIS PAIN MEDS. MORNING MEDS PASSED WITH A SIP OF WATER. NO FURTHER NEEDS AT THIS TIME. CL IN REACH, BED IN LOWEST, SIDE RAILS X2. WILL CTM.
--- NOTE | 2016-07-16 10:15 | NUR ---
PT LEAVING FOR HIS PIPIDA SCAN AT THIS TIME. DENIES ANY CURRENT NEEDS.
--- NOTE | 2016-07-16 12:31 | NUR ---
PT BACK FROM PIPIDA SCAN AND REQUESTING PRN PAIN MEDICATION AND WAS PROVIDED WITH IT. PT ALSO HUNGRY AND FOOD TRAY WAS ORDERED. PRIMARY AWARE OF ANBX REACTION AND HAD ME PAGE HE WAS THE ONE WHO PRESCRIBED IT. NO FURTHER NEEDS AT THIS TIME. CL IN REACH, BED IN LOWEST, SIDE RAILS X2. WILL CTM.
[2016-07-16 16:36] VITALS: BP 127/86
[2016-07-16 21:42] VITALS: BP 159/88
[2016-07-16 23:39] VITALS: BP 134/81
--- NOTE | 2016-07-17 01:08 | NUR ---
NURSING ROUNDS 07/16/16 21:00 - PT AWAKE, ALERT, ORIENTED, REQUESTING PAIN MEDICATIONS, DENIES ANY OTHER NEEDS. PT STATES HE HAS CHRONIC RECTAL PAIN AND ABDOMINAL PAIN. CONTINUE TO MONITOR CLOSELY. BED LOW, CALL LIGHT IN REACH, SIDE RAILS X 2, HOB 10 DEGREES.
[2016-07-17 04:01] VITALS: BP 138/83
[2016-07-17 05:59] LABS: BASOPHILS 1.2 % (0-2); EOSINOPHILS 10.7 % (0-7); HEMATOCRIT 32.1 % (42.0-54.0); HEMOGLOBIN 10.1 g/dL (13.5-17.5); IMMATURE GRANULOCYTES 0.4 % (0-5); LYMPHOCYTES 38.4 % (15-50); MCH 26.1 pg (26.0-34.0); MCHC 31.5 g/dL (31.0-37.0); MCV 82.9 fL (80.0-100.0); MONOCYTES 11.2 % (2-11); NEUTROPHILS 38.1 % (40-80); PLATELET COUNT 171 10x3/uL (130-400); RBC 3.87 10x6/uL (4.20-6.10); RDW 16.1 % (11.5-14.5); WBC 2.4 10x3/uL (4.8-10.8)
[2016-07-17 06:14] LABS: INR 1.05 (0.85-1.17); PROTIME 13.6 SECONDS (11.6-15.0)
--- NOTE | 2016-07-17 06:21 | NUR ---
PT HAS C/O THROAT SWELLING, ITCHING, TONGUE SWELLING R/T THE LEVAQUIN HE HAD EARLIER IN DAY SHIFT. PT HAS REQUIRED PRN BENADRYL X 2. I MENTIONED THAT HE MAY ACTUALLY BE HAVING A REACTION TO A DIFFERENT MEDICATION SINCE HIS S/S REMAIN INDICATIVE OF AN ALLERGIC REACTION, WHICH SEEMS TO BE EXACERBATED AFTER TAKING THE PRN OXYCODONE. PT DENIES ANY OTHER ISSUES. CONTINUE TO MONITOR CLOSELY.
[2016-07-17 06:22] LABS: ALBUMIN 2.8 g/dL (3.4-5.0); ALKALINE PHOSPHATASE 93 U/L (46-116); ALT (SGPT) 82 U/L (10-68); C-REACTIVE PROTEIN 1.8 mg/dL (0.0-0.9); CALC OSMOLALITY 280 mosm/kg (275-300); CALCIUM 8.6 mg/dL (8.5-10.1); CHLORIDE - SERUM 105 mmol/L (98-107); GLUCOSE 96 mg/dL (74-106); POTASSIUM - SERUM 3.4 mmol/L (3.5-5.1); PROTEIN - SERUM 6.4 g/dL (6.4-8.2); SODIUM 141 mmol/L (136-145); UREA NITROGEN 12 mg/dL (7-18); eGFR NON AFRICAN AMERICAN 82 mL/min (90-120)
[2016-07-17 08:24] VITALS: BP 148/97
[2016-07-17 10:20] LABS: HEPATITIS C ANTIBODY <0.1 (0.0-0.9)
[2016-07-17 12:01] VITALS: BP 128/86
[2016-07-17] MEDS ORDERED: PERCOCET 10/3251 TA1 PO (12:29)
[2016-07-17] MEDS ORDERED: ASPIRIN325 MG PO (12:39)
--- NOTE | 2016-07-17 13:46 | NUR ---
CM NOTE: CM met with patient before discharge to make sure he did not need anything prior to going home. PT request a letter for court stating his admit and discharge date. I looked back on CM notes and saw that Germán with CM had faxed this information to the court. I filled out a written form for patient to take also and placed a copy in the chart. Pt denies any other needs at this time. Micki Koroma RN
--- NOTE | 2016-07-17 18:08 | CN ---
PATIENT NAME:SERGE BOWLES MEDICAL RECORD: [id number] : 60 LOCATION:D. D.2138 ADMIT DATE: 07/11/16 ACCOUNT: [id number] CONSULTING PHYSICIAN: KAYLEE WHITMAN MD REFERRING PHYSICIAN: ELISABET SOOD DO DATE OF CONSULTATION: 07/15/2016 Cardiology Consultation ADMITTING DIAGNOSES: 1. Chest pain. 2. Coronary artery disease. 3. Previous percutaneous transluminal coronary angioplasty stent. 4. Alcohol withdrawal. 5. Gastroesophageal reflux disease. 6. Hypertension. HISTORY OF PRESENT ILLNESS: This is a gentleman, who presents with acute alcohol withdrawal, was having multiple episodes of abdominal and chest pain. It is not classic for angina. It is more of a sharp stabbing pleuritic type pain. A CT angio was done. This is negative for PE. Cardiac enzymes were negative. A 12-lead ECG is with no changes. He continues to have the episodes of pain in abdominal and chest. He was seen by surgery, felt to have a perineal induration on broad-spectrum antibiotics for this. He is on medications for his acute alcohol withdrawal and on Dilaudid for pain. His systolic blood pressure has been in the 100-110 range, heart rate is in the 80s with no dysrhythmias. PHYSICAL EXAMINATION: GENERAL APPEARANCE: Well-nourished, well-developed, appears stated age. Level of distress, comfortable. PSYCHIATRIC: Mental status, alert, normal affect. Orientation, oriented to time, place and person. EYES: Lids and conjunctiva, noninjected. No discharge, no pallor. ENT: Lips, teeth, gums, normal dentition. Oropharynx, no cyanosis, no pallor. NECK: Carotid arteries, bilateral normal upstroke, no bruits, no thrills. JUGULAR VEINS: No jugular venous pressure or distention. CERVICAL LYMPH NODES: Nontender, nonenlarged. THYROID: Not enlarged. Nontender. No nodules. LUNGS: Respiratory effort, unlabored. CHEST: Normal curvature. No thoracic deformity. No chest wall tenderness. Percussion, resonant. Auscultation, clear. No wheezes, no rales, no rhonchi. CARDIOVASCULAR: Precordial exam, nondisplaced. No heaves or pericardial thrills. Rate and rhythm, regular. Heart sounds, normal S1, normal S2. No S3, no gallop, no rub. Systolic murmur, not heard. Diastolic murmur, not heard. EXTREMITIES: No cyanosis, no edema. Peripheral pulses, full and equal in all extremities, except as noted. No bruits appreciated. ABDOMEN: Soft, nondistended. Normal aorta. No bruit. Nontender. No masses. Liver, nontender, no hepatomegaly. Spleen, nontender, no splenomegaly. MUSCULOSKELETAL: No joint tenderness. No joint swelling. No erythema. NEUROLOGICAL: Normal gait, normal strength, normal tone. SKIN: Warm and dry. REVIEW OF SYSTEMS: The patient reports easy bruising but reports no swollen glands. The patient reports no fever, no night sweats, no significant weight gain, no significant weight loss. No significant exercise tolerance. The CONSULT REPORT [id number] SERGE BOWLES patient reports no dry eyes, no irritation, no vision change. Patient reports no difficulty hearing and no ear pain. Patient reports no frequent nose bleeds or nose and sinus problems. Patient reports on arm pain on exertion. No shortness of breath while lying down. No history of heart murmur. Patient reports no cough, no wheezing or coughing up blood. Patient reports no abdominal pain, no vomiting. Normal appetite. No diarrhea and not vomiting blood. No nausea and no constipation. Patient reports no incontinence. No difficulty urinating. No hematuria. No increased frequency. Patient reports no muscle aches. No weakness, no arthralgias, no back pain. No swelling of the extremities. Patient reports no abnormal mole, no jaundice, no rashes. Reports no loss of consciousness. No weakness and no numbness. No seizures, dizziness, or headaches. The patient reports no depression, no sleep disturbance, feeling safe in a relationship and no alcohol abuse. Patient reports on fatigue. Reports no runny nose or sinus pressure. No itching, no hives, and no frequent sneezing. OVERALL IMPRESSION: Chest pain. This is noncardiac. This is secondary to his alcohol withdrawal and overall pain syndrome. Everything cardiac sheldon is normal. Objectively, no other cardiac workup or treatment is necessary at this time. TRANSINT:[id number] Voice Confirmation ID: [id number] DOCUMENT ID: [id number] KAYLEE WHITMAN MD at 1808 CC: [id number] DICTATION DATE: 07/15/1640 ROLL COVERER: 07/15/16 1746 DIS IN 07/17/16 [facility] [address] [place] [address]
== END 2016-07-17 17:23 | disposition home or self-care (01) | DRG 897 ==
LOC: D.ER 10:20 → D.M2 18:05 → OBSVTIME 18:05 → D.M2 18:05
PROVIDERS: Emergency Medicine; Family Medicine; ADMIT Family Medicine
DX: F10.231 Alcohol dependence with withdrawal delirium (principal); R10.9 Unspecified abdominal pain; R10.2 Pelvic and perineal pain; F31.9 Bipolar disorder, unspecified; D64.9 Anemia, unspecified; D70.9 Neutropenia, unspecified; R23.4 Changes in skin texture; I25.10 Atherosclerotic heart disease of native coronary artery without angina pectoris; I10 Essential (primary) hypertension; L50.0 Allergic urticaria; T37.8X5A Adverse effect of other specified systemic anti-infectives and antiparasitics, initial encounter; K21.9 Gastro-esophageal reflux disease without esophagitis; Z93.3 Colostomy status; Z85.048 Personal history of other malignant neoplasm of rectum, rectosigmoid junction, and anus

== ENCOUNTER 2016-07-24 10:52 | Emergency (ER) | payer MEDICAID ==
[2016-07-11 13:04] VITALS: BMI 28.2
[~2016-07-24 10:52] MED LIST changes: +ASPIRIN325 MG PO; +PERCOCET 10/3251 TA1 PO
[2016-07-24 12:28] LABS: BASOPHILS 1.5 % (0-2); EOSINOPHILS 3.9 % (0-7); HEMATOCRIT 36.1 % (42.0-54.0); HEMOGLOBIN 11.1 g/dL (13.5-17.5); IMMATURE GRANULOCYTES 0.2 % (0-5); MCH 26.1 pg (26.0-34.0); MCHC 30.7 g/dL (31.0-37.0); MCV 84.9 fL (80.0-100.0); MEAN PLATELET VOLUME 8.9 fL (7.4-10.4); MONOCYTES 6.9 % (2-11); NEUTROPHILS 58.5 % (40-80); RBC 4.25 10x6/uL (4.20-6.10); RDW 16.3 % (11.5-14.5); WBC 4.1 10x3/uL (4.8-10.8)
[2016-07-24 12:34] LABS: PLATELET COUNT 292 10x3/uL (130-400)
[2016-07-24 12:40] LABS: ALBUMIN 3.8 g/dL (3.4-5.0); ANION GAP 13.2 mmol/L (8-16); BILIRUBIN - TOTAL 0.47 mg/dL (0.2-1.3); CALCIUM 9.1 mg/dL (8.5-10.1); CARBON DIOXIDE 27.1 mmol/L (21.0-32.0); CREATININE - SERUM 1.2 mg/dL (0.6-1.3); POTASSIUM - SERUM 4.3 mmol/L (3.5-5.1); PROTEIN - SERUM 7.9 g/dL (6.4-8.2)
[2016-07-24 15:33] LABS: APPEARANCE CLEAR (CLEAR); BILIRUBIN NEGATIVE (NEGATIVE); COLOR YELLOW (YELLOW); GLUCOSE NEGATIVE (NEGATIVE); KETONE NEGATIVE (NEGATIVE); LEUKOCYTE ESTERASE NEGATIVE (NEGATIVE); NITRITE NEGATIVE (NEGATIVE); PROTEIN NEGATIVE (NEGATIVE); UROBILINOGEN NORMAL (NORMAL)
== END 2016-07-24 16:17 | disposition home or self-care (01) ==
LOC: D.ER 10:52
PROVIDERS: Emergency Medicine; Nurse Practitioner Acute Care
DX: M54.30 Sciatica, unspecified side (principal); Z85.048 Personal history of other malignant neoplasm of rectum, rectosigmoid junction, and anus; I10 Essential (primary) hypertension; E87.6 Hypokalemia; E83.42 Hypomagnesemia; F17.200 Nicotine dependence, unspecified, uncomplicated

== ENCOUNTER 2016-07-28 08:21 | Emergency (ER) | payer MEDICAID ==
[2016-07-11 13:04] VITALS: BMI 28.2
== END 2016-07-28 09:53 | disposition home or self-care (01) ==
LOC: D.ER 08:21
DX: Z86.59 Personal history of other mental and behavioral disorders (principal); Z76.0 Encounter for issue of repeat prescription; F10.10 Alcohol abuse, uncomplicated; Z85.048 Personal history of other malignant neoplasm of rectum, rectosigmoid junction, and anus; I10 Essential (primary) hypertension; E83.42 Hypomagnesemia; E87.6 Hypokalemia

== ENCOUNTER 2016-09-05 07:23 | Emergency (ER) | payer MEDICAID ==
[2016-07-11 13:04] VITALS: BMI 28.2
[2016-09-05 08:14] LABS: BASOPHILS 0.5 % (0-2); EOSINOPHILS 1.8 % (0-7); HEMATOCRIT 39.6 % (42.0-54.0); IMMATURE GRANULOCYTES 0.3 % (0-5); LYMPHOCYTES 17.1 % (15-50); MCH 28.1 pg (26.0-34.0); MCHC 32.8 g/dL (31.0-37.0); MCV 85.5 fL (80.0-100.0); MEAN PLATELET VOLUME 9.1 fL (7.4-10.4); MONOCYTES 10.6 % (2-11); NEUTROPHILS 69.7 % (40-80); PLATELET COUNT 184 10x3/uL (130-400); RBC 4.63 10x6/uL (4.20-6.10); RDW 17.8 % (11.5-14.5)
[2016-09-05 08:32] LABS: ALBUMIN 3.8 g/dL (3.4-5.0); ALKALINE PHOSPHATASE 124 U/L (46-116); ALT (SGPT) 63 U/L (10-68); BILIRUBIN - TOTAL 0.65 mg/dL (0.2-1.3); CALC OSMOLALITY 283 mosm/kg (275-300); CALCIUM 8.7 mg/dL (8.5-10.1); CARBON DIOXIDE 23.2 mmol/L (21.0-32.0); CHLORIDE - SERUM 106 mmol/L (98-107); CREATININE - SERUM 0.9 mg/dL (0.6-1.3); GLUCOSE 102 mg/dL (74-106); POTASSIUM - SERUM 3.7 mmol/L (3.5-5.1); PROTEIN - SERUM 7.5 g/dL (6.4-8.2); SODIUM 142 mmol/L (136-145); UREA NITROGEN 14 mg/dL (7-18); eGFR NON AFRICAN AMERICAN > 90 mL/min (90-120)
[2016-09-05 08:44] LABS: CKMB 7.8 U/L (0.0-3.6); CREATINE KINASE 550 UL (21-232)
[2016-09-05 08:48] LABS: TROPONIN-I < 0.017 ng/mL (0.000-0.060)
[2016-09-05 10:14] LABS: APPEARANCE CLEAR (CLEAR); BILIRUBIN NEGATIVE (NEGATIVE); COLOR ORANGE (YELLOW); KETONE MODERATE mg/dL (NEGATIVE); LEUKOCYTE ESTERASE NEGATIVE (NEGATIVE); NITRITE NEGATIVE (NEGATIVE); PROTEIN TRACE mg/dL (NEGATIVE); RED CELLS - URINE NONE SEEN /hpf (0-5); UROBILINOGEN NORMAL (NORMAL); WHITE CELLS - URINE OCC /hpf (0-5)
[2016-09-05 10:15] LABS: BACTERIA FEW /hpf (NONE SEEN); CALCIUM OXALATE CRYSTALS 0-5 /hpf (NONE SEEN); MUCUS <1+ /lpf (NONE SEEN)
[2016-09-05 10:33] LABS: GLUCOSE NEGATIVE (NEGATIVE)
== END 2016-09-05 13:53 | disposition home or self-care (01) ==
LOC: D.ER 07:23
PROVIDERS: Emergency Medicine
DX: R07.9 Chest pain, unspecified (principal); R10.9 Unspecified abdominal pain; Z85.048 Personal history of other malignant neoplasm of rectum, rectosigmoid junction, and anus; I10 Essential (primary) hypertension; E83.42 Hypomagnesemia

== ENCOUNTER 2016-10-20 13:04 | Emergency (ER) | payer MEDICAID ==
[2016-07-11 13:04] VITALS: BMI 28.2
== END 2016-10-20 15:40 | disposition home or self-care (01) ==
LOC: D.ER 13:04
DX: M54.5 Low back pain (principal); R11.0 Nausea; I10 Essential (primary) hypertension

== ENCOUNTER 2017-01-13 08:04 | Emergency (ER) | payer MEDICAID ==
[2016-07-11 13:04] VITALS: BMI 28.2
[2017-01-13 08:31] LABS: BASOPHILS 0.2 % (0-2); EOSINOPHILS 1.2 % (0-7); HEMATOCRIT 39.9 % (42.0-54.0); HEMOGLOBIN 13.6 g/dL (13.5-17.5); LYMPHOCYTES 10.1 % (15-50); MCH 32.8 pg (26.0-34.0); MCHC 34.1 g/dL (31.0-37.0); MCV 96.1 fL (80.0-100.0); MEAN PLATELET VOLUME 9.2 fL (7.4-10.4); MONOCYTES 9.2 % (2-11); NEUTROPHILS 79.3 % (40-80); PLATELET COUNT 175 10x3/uL (130-400); RBC 4.15 10x6/uL (4.20-6.10); RDW 12.6 % (11.5-14.5); WBC 4.2 10x3/uL (4.8-10.8)
[2017-01-13 08:48] LABS: ALBUMIN 3.4 g/dL (3.4-5.0); ALKALINE PHOSPHATASE 114 U/L (46-116); ALT (SGPT) 230 U/L (10-68); BILIRUBIN - TOTAL 0.49 mg/dL (0.2-1.3); CALC OSMOLALITY 280 mosm/kg (275-300); CALCIUM 9.1 mg/dL (8.5-10.1); CARBON DIOXIDE 25.3 mmol/L (21.0-32.0); CHLORIDE - SERUM 106 mmol/L (98-107); CREATININE - SERUM 0.9 mg/dL (0.6-1.3); GLUCOSE 108 mg/dL (74-106); POTASSIUM - SERUM 4.1 mmol/L (3.5-5.1); PROTEIN - SERUM 7.2 g/dL (6.4-8.2); SODIUM 140 mmol/L (136-145); UREA NITROGEN 14 mg/dL (7-18); eGFR NON AFRICAN AMERICAN > 90 mL/min (90-120)
[2017-01-13 09:00] LABS: CKMB 5.5 U/L (0.0-3.6); CREATINE KINASE 177 UL (21-232); TROPONIN-I < 0.017 ng/mL (0.000-0.060)
== END 2017-01-13 09:58 | disposition home or self-care (01) ==
LOC: D.ER 08:04
PROVIDERS: Family Medicine
DX: J20.9 Acute bronchitis, unspecified (principal); K75.9 Inflammatory liver disease, unspecified; I10 Essential (primary) hypertension; F17.200 Nicotine dependence, unspecified, uncomplicated

== ENCOUNTER 2017-04-08 15:07 | Emergency (ER) | payer MEDICAID ==
[2016-07-11 13:04] VITALS: BMI 28.2
[2017-04-08 15:43] LABS: BASOPHILS 0.3 % (0-2); EOSINOPHILS 1.6 % (0-7); HEMATOCRIT 39.5 % (42.0-54.0); LYMPHOCYTES 15.2 % (15-50); MCH 32.3 pg (26.0-34.0); MCHC 35.4 g/dL (31.0-37.0); MCV 91.2 fL (80.0-100.0); MEAN PLATELET VOLUME 9.2 fL (7.4-10.4); MONOCYTES 5.2 % (2-11); NEUTROPHILS 77.7 % (40-80); RBC 4.33 10x6/uL (4.20-6.10); RDW 14.3 % (11.5-14.5); WBC 3.7 10x3/uL (4.8-10.8)
[2017-04-08 15:46] LABS: PLATELET COUNT 129 10x3/uL (130-400)
[2017-04-08 16:05] LABS: ALBUMIN 3.3 g/dL (3.4-5.0); ALKALINE PHOSPHATASE 103 U/L (46-116); ALT (SGPT) 443 U/L (10-68); BILIRUBIN - TOTAL 0.88 mg/dL (0.2-1.3); CALC OSMOLALITY 270 mosm/kg (275-300); CALCIUM 8.4 mg/dL (8.5-10.1); CARBON DIOXIDE 25.2 mmol/L (21.0-32.0); CHLORIDE - SERUM 101 mmol/L (98-107); GLUCOSE 103 mg/dL (74-106); POTASSIUM - SERUM 3.7 mmol/L (3.5-5.1); SODIUM 136 mmol/L (136-145); UREA NITROGEN 11 mg/dL (7-18); eGFR NON AFRICAN AMERICAN 82 mL/min (90-120)
[2017-04-08 17:05] LABS: APPEARANCE CLEAR (CLEAR); BILIRUBIN NEGATIVE (NEGATIVE); COLOR DK YELLOW (YELLOW); GLUCOSE NEGATIVE (NEGATIVE); KETONE NEGATIVE (NEGATIVE); NITRITE NEGATIVE (NEGATIVE); PROTEIN NEGATIVE (NEGATIVE); UROBILINOGEN NORMAL (NORMAL)
== END 2017-04-08 22:40 | disposition home or self-care (01) ==
LOC: D.ER 15:07
PROVIDERS: Family Medicine
DX: R10.9 Unspecified abdominal pain (principal); Z86.79 Personal history of other diseases of the circulatory system; Z85.048 Personal history of other malignant neoplasm of rectum, rectosigmoid junction, and anus; F17.200 Nicotine dependence, unspecified, uncomplicated

== ENCOUNTER 2017-08-30 05:22 | Emergency (ER) | payer MEDICAID ==
[~2017-08-30] VITALS: Ht 188 cm; Wt 131.8 kg
[2017-08-30 05:34] VITALS: BP 144/105; Ht 188 cm; Wt 131.8 kg
[2017-08-30] MEDS ORDERED: SEROQUEL300 MG PO (05:34)
[2017-08-30 07:13] LABS: BASOPHILS 0.8 % (0-2); EOSINOPHILS 2.2 % (0-7); HEMATOCRIT 38.9 % (42.0-54.0); HEMOGLOBIN 13.3 g/dL (13.5-17.5); IMMATURE GRANULOCYTES 0.3 % (0-5); LYMPHOCYTES 19.6 % (15-50); MCH 32.1 pg (26.0-34.0); MCHC 34.2 g/dL (31.0-37.0); MEAN PLATELET VOLUME 9.6 fL (7.4-10.4); MONOCYTES 12.4 % (2-11); NEUTROPHILS 64.7 % (40-80); PLATELET COUNT 135 10x3/uL (130-400); RBC 4.14 10x6/uL (4.20-6.10); RDW 13.5 % (11.5-14.5); WBC 3.7 10x3/uL (4.8-10.8)
[2017-08-30 07:44] LABS: APTT 26.2 SECONDS (22.8-39.4)
[2017-08-30 07:45] LABS: INR 1.15 (0.85-1.17); PROTIME 14.2 SECONDS (11.6-15.0)
[2017-08-30 07:46] LABS: D-DIMER-QUANTITATIVE < 0.27 ug/mLFEU (0.20-0.54)
[2017-08-30 07:47] LABS: ALBUMIN 2.9 g/dL (3.4-5.0); ALKALINE PHOSPHATASE 140 U/L (46-116); ALT (SGPT) 197 U/L (10-68); BILIRUBIN - TOTAL 0.38 mg/dL (0.2-1.3); CALC OSMOLALITY 273 mosm/kg (275-300); CALCIUM 8.9 mg/dL (8.5-10.1); CARBON DIOXIDE 27.6 mmol/L (21.0-32.0); CHLORIDE - SERUM 104 mmol/L (98-107); CREATININE - SERUM 0.8 mg/dL (0.6-1.3); GLUCOSE 92 mg/dL (74-106); POTASSIUM - SERUM 4.3 mmol/L (3.5-5.1); PROTEIN - SERUM 7.1 g/dL (6.4-8.2); SODIUM 138 mmol/L (136-145); UREA NITROGEN 6 mg/dL (7-18); eGFR NON AFRICAN AMERICAN > 90 mL/min (90-120)
[2017-08-30 08:06] LABS: MAGNESIUM - SERUM 1.6 mg/dL (1.8-2.4); TROPONIN-I < 0.017 ng/mL (0.000-0.060)
[2017-08-30 08:07] LABS: CKMB 5.8 U/L (0.0-3.6)
[2017-08-30] MEDS ORDERED: ATIVAN1 MG PO (08:10)
== END 2017-08-30 08:28 | disposition home or self-care (01) ==
LOC: D.ER 05:22
PROVIDERS: Family Medicine
DX: F41.9 Anxiety disorder, unspecified (principal); R00.0 Tachycardia, unspecified

== ENCOUNTER 2018-01-15 05:45 | Inpatient (IN) | payer MEDICAID ==
[~2018-01-15] VITALS: Ht 188 cm; Wt 120.7 kg
[2018-01-15] VITALS (14 sets, daily range): BP systolic 94–128; BP diastolic 47–82; BMI 34.2
--- NOTE | ~2018-01-15 | MORECARE ---
CASE MANAGEMENT DISCHARGE SUMMARY PATIENT: SERGE BOWLES UNIT: [id number] ADM DATE: 01/15/18 AGE: 57 : 60 SEX: M ROOM/BED: D.2237 AUTHOR: KIERA LAURENT PHYSICIAN: REFERRING PHYSICIAN: NICOLASA KUMAR MD DATE OF SERVICE: 01/21/18 Discharge Plan Patient Name: SERGE BOWLES Facility: [facility]:[place] : 1960 Planned Disposition: Home Anticipated Discharge Date: Discharge Date: Expected LOS: Initial Reviewer: [email or web address] Initial Review Date: 01/21/2018 Generated: 01/21/18 10:16 am Comments DCP- Discharge Planning Updated by [email or web address]: Suzette Linares on 01/21/18 8:[address] Patient Name: SERGE BOWLES Admission Status: ER Accout number: [id number] Admission Date: 01-15-2018 : 1960 Admission Diagnosis:GASTROINTESTINAL HEMORRHAGE, UNSPECIFIED Attending: NICOLASA KUMAR Current LOS: 6 Anticipated DC Date: Planned Disposition: Home Primary Insurance: MEDICAID [place] Discharge Planning Comments: CM met with patient to discuss discharge planning, he is alone in the room. He states he lives alone on [facility] in [place]. He states he is independent with all ADL's and IADL's. States he drove himself to the hospital and will drive himself home. I discussed option of home health, he states he does not need home health, but would like personal care for a couple of hours a day. He have me permission to call [employer]. I spoke with Alyssa at [employer] and she will bring an application out after lunch. States he does not have any other DME besides the ostomy supplies he has mailed to him. Denies need for further DME. CM will continue to follow and assist with discharge planning/needs. Priming Mixture Carrier: Suzette Linares DCPIA - Discharge Planning Initial Assessment Updated by [email or web address]: Suzette Linares on 01/21/18 9:07 am * Is the patient Alert and Oriented? Yes * How many steps to enter\exit or inside your home? 0/0 * PCP Dr. Topete * Pharmacy [facility] on [facility] * Preadmission Environment Home Alone * ADLs Independent * Equipment Ostomy Supplies * List name and contact numbers for known caregivers / representatives who currently or will assist patient after discharge: None * Verbal permission to speak to the caregivers and representatives has been obtained from the patient. N/A * Community resources currently utilized None * Please name any agencies selected above. Ostomy supplies from [facility] for [place] * Additional services required to return to the preadmission environment? No * Can the patient safely return to the preadmission environment? Yes * Has this patient been hospitalized within the prior 30 days at any hospital? Yes Last DP export: 01/21/18 8:10 Patient Name: SERGE BOWLES Page [id number] at 0916 All edits/amendments must be made on the electronic document DICTATION DATE: 01/21/18915 MANAGER ASSEMBLY: TENZIN 01/21/18915 RPT#: [id number] DC DATE: STATUS: ADM IN [facility] [address] [place] [address] END OF REPORT
--- NOTE | ~2018-01-15 | MORECARE ---
CASE MANAGEMENT DISCHARGE SUMMARY PATIENT: SERGE BOWLES UNIT: [id number] ADM DATE: 01/15/18 AGE: 57 : 60 SEX: M ROOM/BED: D.2237 AUTHOR: KIERA LAURENT PHYSICIAN: REFERRING PHYSICIAN: NICOLASA KUMAR MD DATE OF SERVICE: 01/22/18 Discharge Plan Patient Name: SERGE BOWLES Facility: [facility]:[place] : 1960 Planned Disposition: Home Anticipated Discharge Date: Discharge Date: Expected LOS: Initial Reviewer: [email or web address] Initial Review Date: 01/21/2018 Generated: 01/22/18 12:16 pm Comments DCP- Discharge Planning Updated by [email or web address]: Suzette Linares on 01/22/18 10:[address] Received a discharge order. Patient states he will be driving himself home. I notified his nurse, Lulu, that he states he is driving himself home. Nurse states he has been getting up on his own and taking care of his own ostomy. He refuses home health. He states Dr. Topete is setting him up with a personal care attendant for 2 hours a day, he is unsure as to what company that is with. I called [facility] to see if they saw the patient yesterday, Alyssa is not in the office. I gave them patient's information to follow up with him. He states he does not need any equipment. Discharging home today, refuses home health. Patient states he feels going home is a safe discharge. He is able to answer all my questions appropriately. CM will continue to follow and assist with discharge planning/needs. DCP- Discharge Planning Updated by [email or web address]: Suzette Linares on 01/21/18 8:[address] Patient Name: SERGE BOWLES Admission Status: ER Accout number: [id number] Admission Date: 01-15-2018 : 1960 Admission Diagnosis:GASTROINTESTINAL HEMORRHAGE, UNSPECIFIED Attending: NICOLASA KUMAR Current LOS: 6 Anticipated DC Date: Planned Disposition: Home Primary Insurance: MEDICAID [place] Discharge Planning Comments: CM met with patient to discuss discharge planning, he is alone in the room. He states he lives alone on [address] [address] in [place]. He states he is independent with all ADL's and IADL's. States he drove himself to the hospital and will drive himself home. I discussed option of home health, he states he does not need home health, but would like personal care for a couple of hours a day. He have me permission to call [employer]. I spoke with Alyssa at [employer] and she will bring an application out after lunch. States he does not have any other DME besides the ostomy supplies he has mailed to him. Denies need for further DME. CM will continue to follow and assist with discharge planning/needs. Racing Mechanic: Suzette Linares DCPIA - Discharge Planning Initial Assessment Updated by [email or web address]: Suzette Linares on 01/21/18 9:07 am * Is the patient Alert and Oriented? Yes * How many steps to enter\exit or inside your home? 0/0 * PCP Dr. Topete * Pharmacy [facility] on [facility] * Preadmission Environment Home Alone * ADLs Independent * Equipment Ostomy Supplies * List name and contact numbers for known caregivers / representatives who currently or will assist patient after discharge: None * Verbal permission to speak to the caregivers and representatives has been obtained from the patient. N/A * Community resources currently utilized None * Please name any agencies selected above. Ostomy supplies from [facility] for [place] * Additional services required to return to the preadmission environment? No * Can the patient safely return to the preadmission environment? Yes * Has this patient been hospitalized within the prior 30 days at any hospital? Yes Last DP export: 01/21/18 8:16 Patient Name: SERGE BOWLES Page 30031 at 1116 All edits/amendments must be made on the electronic document DICTATION DATE: 01/22/181115 CYBER SECURITY SYSTEMS ENGINEER: TENZIN 01/22/181115 RPT#: [id number] [place] DATE: STATUS: ADM IN [facility] [address] [place] [address] END OF REPORT
--- NOTE | ~2018-01-15 | MORECARE ---
CASE MANAGEMENT DISCHARGE SUMMARY PATIENT: SERGE BOWLES UNIT: [id number] ADM DATE: 01/15/18 AGE: 57 : 60 SEX: M ROOM/BED: D.2237 AUTHOR: KIERA LAURENT PHYSICIAN: REFERRING PHYSICIAN: NICOLASA KUMAR MD DATE OF SERVICE: 01/24/18 Discharge Plan Patient Name: SERGE BOWLES Facility: [facility]:[place] : 1960 Planned Disposition: Home Anticipated Discharge Date: Discharge Date: 01/22/2018 Expected LOS: Initial Reviewer: [email or web address] Initial Review Date: 01/21/2018 Generated: 01/24/18 4:01 pm Comments DCP- Discharge Planning Updated by [email or web address]: Suzette Linares on 01/22/18 10:[address] Received a discharge order. Patient states he will be driving himself home. I notified his nurse, Lulu, that he states he is driving himself home. Nurse states he has been getting up on his own and taking care of his own ostomy. He refuses home health. He states Dr. Topete is setting him up with a personal injury paralegal for 2 hours a day, he is unsure as to what company that is with. I called [facility] to see if they saw the patient yesterday, Alyssa is not in the office. I gave them patient's information to follow up with him. He states he does not need any equipment. Discharging home today, refuses home health. Patient states he feels going home is a safe discharge. He is able to answer all my questions appropriately. CM will continue to follow and assist with discharge planning/needs. DCP- Discharge Planning Updated by [email or web address]: Suzette Linares on 01/21/18 8:[address] Patient Name: SERGE BOWLES Admission Status: ER Accout number: [id number] Admission Date: 01-15-2018 : 1960 Admission Diagnosis:GASTROINTESTINAL HEMORRHAGE, UNSPECIFIED Attending: NICOLASA KUMAR Current LOS: 6 Anticipated DC Date: Planned Disposition: Home Primary Insurance: MEDICAID [place] Discharge Planning Comments: CM met with patient to discuss discharge planning, he is alone in the room. He states he lives alone on [facility] [address] [facility] in [place]. He states he is independent with all ADL's and IADL's. States he drove himself to the hospital and will drive himself home. I discussed option of home health, he states he does not need home health, but would like personal care for a couple of hours a day. He have me permission to call [employer]. I spoke with Alyssa at [employer] and she will bring an application out after lunch. States he does not have any other DME besides the ostomy supplies he has mailed to him. Denies need for further DME. CM will continue to follow and assist with discharge planning/needs. Personnel Generalist Manager: Suzette Linares DCPIA - Discharge Planning Initial Assessment Updated by [email or web address]: Suzette Linares on 01/21/18 9:07 am * Is the patient Alert and Oriented? Yes * How many steps to enter\exit or inside your home? 0/0 * PCP Dr. Topete * Pharmacy [facility] on [facility] * Preadmission Environment Home Alone * ADLs Independent * Equipment Ostomy Supplies * List name and contact numbers for known caregivers / representatives who currently or will assist patient after discharge: None * Verbal permission to speak to the caregivers and representatives has been obtained from the patient. N/A * Community resources currently utilized None * Please name any agencies selected above. Ostomy supplies from [facility] for [place] * Additional services required to return to the preadmission environment? No * Can the patient safely return to the preadmission environment? Yes * Has this patient been hospitalized within the prior 30 days at any hospital? Yes Last DP export: 01/22/18 2:57 Patient Name: SERGE BOWLES Page 51619 at 1501 All edits/amendments must be made on the electronic document DICTATION DATE: 01/24/18 1500 TECHNICAL ENGINEER: TENZIN 01/24/18 1500 RPT#: [id number] DC DATE:01/22/18 STATUS: DIS IN [facility] [address] [place] [address] END OF REPORT
--- NOTE | ~2018-01-15 | MORECARE ---
CASE MANAGEMENT DISCHARGE SUMMARY PATIENT: SERGE BOWLES UNIT: [id number] ADM DATE: 01/15/18 AGE: 57 : 60 SEX: M ROOM/BED: D.2237 AUTHOR: KIERA LAURENT PHYSICIAN: REFERRING PHYSICIAN: NICOLASA KUMAR MD DATE OF SERVICE: 01/21/18 Discharge Plan Patient Name: SERGE BOWLES Facility: [facility]:[place] : 1960 Planned Disposition: Home Anticipated Discharge Date: Discharge Date: Expected LOS: Initial Reviewer: [email or web address] Initial Review Date: 01/21/2018 Generated: 01/21/18 10:03 am Patient Name: SERGE BOWLES Page 72639 at 0903 All edits/amendments must be made on the electronic document DICTATION DATE: 01/21/18902 LEAD SOFTWARE DEVELOPER: TENZIN 01/21/18902 RPT#: [id number] DC DATE: STATUS: ADM IN [facility] [address] [place] [address] END OF REPORT
--- NOTE | ~2018-01-15 | MORECARE ---
CASE MANAGEMENT DISCHARGE SUMMARY PATIENT: SERGE BOWLES UNIT: [id number] ADM DATE: 01/15/18 AGE: 57 : 60 SEX: M ROOM/BED: D.2237 AUTHOR: KIERA LAURENT PHYSICIAN: REFERRING PHYSICIAN: NICOLASA KUMAR MD DATE OF SERVICE: 01/22/18 Discharge Plan Patient Name: SERGE BOWLES Facility: [facility]:[place] : 1960 Planned Disposition: Home Anticipated Discharge Date: Discharge Date: 01/22/2018 Expected LOS: Initial Reviewer: [email or web address] Initial Review Date: 01/21/2018 Generated: 01/22/18 4:56 pm Comments DCP- Discharge Planning Updated by [email or web address]: Suzette Linares on 01/22/18 10:[address] Received a discharge order. Patient states he will be driving himself home. I notified his nurse, Lulu, that he states he is driving himself home. Nurse states he has been getting up on his own and taking care of his own ostomy. He refuses home health. He states Dr. Topete is setting him up with a retail personal banker for 2 hours a day, he is unsure as to what company that is with. I called [facility] to see if they saw the patient yesterday, Alyssa is not in the office. I gave them patient's information to follow up with him. He states he does not need any equipment. Discharging home today, refuses home health. Patient states he feels going home is a safe discharge. He is able to answer all my questions appropriately. CM will continue to follow and assist with discharge planning/needs. DCP- Discharge Planning Updated by [email or web address]: Suzette Linares on 01/21/18 8:[address] Patient Name: SERGE BOWLES Admission Status: ER Accout number: [id number] Admission Date: 01-15-2018 : 1960 Admission Diagnosis:GASTROINTESTINAL HEMORRHAGE, UNSPECIFIED Attending: NICOLASA KUMAR Current LOS: 6 Anticipated DC Date: Planned Disposition: Home Primary Insurance: MEDICAID [place] Discharge Planning Comments: CM met with patient to discuss discharge planning, he is alone in the room. He states he lives alone on [facility] in [place]. He states he is independent with all ADL's and IADL's. States he drove himself to the hospital and will drive himself home. I discussed option of home health, he states he does not need home health, but would like personal care for a couple of hours a day. He have me permission to call [email or web address]. I spoke with Alyssa at [facility] and she will bring an application out after lunch. States he does not have any other DME besides the ostomy supplies he has mailed to him. Denies need for further DME. CM will continue to follow and assist with discharge planning/needs. Coke Oven Patcher: Suzette Linares DCPIA - Discharge Planning Initial Assessment Updated by [email or web address]: Suzette Linares on 01/21/18 9:07 am * Is the patient Alert and Oriented? Yes * How many steps to enter\exit or inside your home? 0/0 * PCP Dr. Topete * Pharmacy [facility] on [facility] * Preadmission Environment Home Alone * ADLs Independent * Equipment Ostomy Supplies * List name and contact numbers for known caregivers / representatives who currently or will assist patient after discharge: None * Verbal permission to speak to the caregivers and representatives has been obtained from the patient. N/A * Community resources currently utilized None * Please name any agencies selected above. Ostomy supplies from [facility] [place] * Additional services required to return to the preadmission environment? No * Can the patient safely return to the preadmission environment? Yes * Has this patient been hospitalized within the prior 30 days at any hospital? Yes External Providers [facility] Next Contact Date: Service Request Date: Service Type: Resolution: Reviewer: Comments: Last DP export: 01/22/18 10:16 Patient Name: SERGE BOWLES Page [phone] at 1557 All edits/amendments must be made on the electronic document DICTATION DATE: 01/22/181555 SALES DATA ANALYST: TENZIN 01/22/181555 RPT#: [id number] DC DATE:01/22/18 STATUS: DIS IN [address], [facility] END OF REPORT
--- NOTE | ~2018-01-15 | MORECARE ---
CASE MANAGEMENT DISCHARGE SUMMARY PATIENT: SERGE BOWLES UNIT: [id number] ADM DATE: 01/15/18 AGE: 57 : 60 SEX: M ROOM/BED: D.2237 AUTHOR: KIERA LAURENT PHYSICIAN: REFERRING PHYSICIAN: NICOLASA KUMAR MD DATE OF SERVICE: 01/21/18 Discharge Plan Patient Name: SERGE BOWLES [facility] : 1960 Planned Disposition: Home Anticipated Discharge Date: Discharge Date: Expected LOS: Initial Reviewer: [email or web address] Initial Review Date: 01/21/2018 Generated: 01/21/18 10:09 am DCPIA - Discharge Planning Initial Assessment Updated by [email or web address]: Suzette Linares on 01/21/18 9:07 am * Is the patient Alert and Oriented? Yes * How many steps to enter\exit or inside your home? 0/0 * PCP Dr. Topete * Pharmacy [facility] on [facility] * Preadmission Environment Home Alone * ADLs Independent * Equipment Ostomy Supplies * List name and contact numbers for known caregivers / representatives who currently or will assist patient after discharge: None * Verbal permission to speak to the caregivers and representatives has been obtained from the patient. N/A * Community resources currently utilized None * Please name any agencies selected above. Ostomy supplies from [facility] [place] * Additional services required to return to the preadmission environment? No * Can the patient safely return to the preadmission environment? Yes * Has this patient been hospitalized within the prior 30 days at any hospital? Yes Last DP export: 01/21/18 8:03 Patient Name: SERGE BOWLES Page 45015 at 0910 All edits/amendments must be made on the electronic document DICTATION DATE: 01/21/18908 LOCAL COORDINATOR: TENZIN 01/21/18908 RPT#: [id number] DC DATE: STATUS: ADM IN [address] [address] END OF REPORT
[~2018-01-15 05:45] MED LIST changes: +ATIVAN1 MG PO; +SEROQUEL300 MG PO
[2018-01-15 06:19] LABS: BASOPHILS 0.3 % (0-2); EOSINOPHILS 4.6 % (0-7); HEMATOCRIT 30.1 % (42.0-54.0); IMMATURE GRANULOCYTES 0.6 % (0-5); LYMPHOCYTES 16.4 % (15-50); MCH 34.1 pg (26.0-34.0); MCHC 33.2 g/dL (31.0-37.0); MCV 102.7 fL (80.0-100.0); MEAN PLATELET VOLUME 9.7 fL (7.4-10.4); MONOCYTES 6.3 % (2-11); NEUTROPHILS 71.8 % (40-80); PLATELET COUNT 171 10x3/uL (130-400); RBC 2.93 10x6/uL (4.20-6.10); RDW 14.5 % (11.5-14.5); WBC 8.9 10x3/uL (4.8-10.8)
[2018-01-15 06:54] LABS: ALBUMIN 2.7 g/dL (3.4-5.0); ANION GAP 14.9 mmol/L (8-16); BILIRUBIN - TOTAL 2.27 mg/dL (0.2-1.3); CALCIUM 11.5 mg/dL (8.5-10.1); CARBON DIOXIDE 28.8 mmol/L (21.0-32.0); CREATININE - SERUM 1.2 mg/dL (0.6-1.3); PROTEIN - SERUM 7.4 g/dL (6.4-8.2)
[2018-01-15 07:08] LABS: POTASSIUM - SERUM 2.7 mmol/L (3.5-5.1)
[2018-01-15] MEDS ORDERED: KLONOPIN1 MG PO (10:39)
[2018-01-15 10:55] LABS: % SATURATION 33 % (15-55); IRON 88 ug/dl (35-150); TOTAL IRON BIND CAPACITY 265 ug/dl (260-445); UNSAT IRON BIND CAPACITY 177 ug/dl (150-375)
[2018-01-15 11:20] LABS: BASOPHILS 0.2 % (0-2); EOSINOPHILS 2.2 % (0-7); HEMOGLOBIN 10.1 g/dL (13.5-17.5); IMMATURE GRANULOCYTES 0.2 % (0-5); LYMPHOCYTES 7.7 % (15-50); MCH 33.2 pg (26.0-34.0); MCHC 33.7 g/dL (31.0-37.0); MEAN PLATELET VOLUME 9.7 fL (7.4-10.4); MONOCYTES 4.7 % (2-11); RBC 3.04 10x6/uL (4.20-6.10); RDW 17.5 % (11.5-14.5)
[2018-01-15 11:22] LABS: MCV 98.7 fL (80.0-100.0); PLATELET COUNT 116 10x3/uL (130-400); WBC 4.9 10x3/uL (4.8-10.8)
[2018-01-15 11:36] LABS: ALBUMIN 2.2 g/dL (3.4-5.0); ANION GAP 12.8 mmol/L (8-16); BILIRUBIN - TOTAL 2.62 mg/dL (0.2-1.3); CALCIUM 9.7 mg/dL (8.5-10.1); CREATININE - SERUM 1.2 mg/dL (0.6-1.3); PROTEIN - SERUM 6.8 g/dL (6.4-8.2)
[2018-01-15 11:40] LABS: POTASSIUM - SERUM 2.8 mmol/L (3.5-5.1)
[2018-01-15 19:16] LABS: BASOPHILS 0.2 % (0-2); EOSINOPHILS 3.1 % (0-7); HEMATOCRIT 27.2 % (42.0-54.0); IMMATURE GRANULOCYTES 0.2 % (0-5); LYMPHOCYTES 3.5 % (15-50); MCH 32.7 pg (26.0-34.0); MCHC 33.1 g/dL (31.0-37.0); MCV 98.9 fL (80.0-100.0); MEAN PLATELET VOLUME 8.9 fL (7.4-10.4); PLATELET COUNT 105 10x3/uL (130-400); RBC 2.75 10x6/uL (4.20-6.10); RDW 18.3 % (11.5-14.5); WBC 4.6 10x3/uL (4.8-10.8)
[2018-01-15 19:33] LABS: ANION GAP 9.3 mmol/L (8-16); BILIRUBIN - TOTAL 2.54 mg/dL (0.2-1.3); CALCIUM 8.9 mg/dL (8.5-10.1); CREATININE - SERUM 1.3 mg/dL (0.6-1.3); PROTEIN - SERUM 5.7 g/dL (6.4-8.2)
[2018-01-15 19:41] LABS: POTASSIUM - SERUM 3.3 mmol/L (3.5-5.1)
[2018-01-16] VITALS (16 sets, daily range): BP systolic 92–135; BP diastolic 48–76
[2018-01-16 04:48] LABS: BASOPHILS 0.3 % (0-2); HEMATOCRIT 26.1 % (42.0-54.0); HEMOGLOBIN 8.6 g/dL (13.5-17.5); IMMATURE GRANULOCYTES 0.3 % (0-5); LYMPHOCYTES 8.8 % (15-50); MCH 33.2 pg (26.0-34.0); MCV 100.8 fL (80.0-100.0); MEAN PLATELET VOLUME 9.5 fL (7.4-10.4); MONOCYTES 3.1 % (2-11); NEUTROPHILS 77.5 % (40-80); PLATELET COUNT 109 10x3/uL (130-400); RBC 2.59 10x6/uL (4.20-6.10); RDW 18.8 % (11.5-14.5); WBC 3.5 10x3/uL (4.8-10.8)
[2018-01-16 05:02] LABS: APTT 37.1 SECONDS (22.8-39.4); INR 1.96 (0.85-1.17)
[2018-01-16 05:10] LABS: ALBUMIN 1.9 g/dL (3.4-5.0); ANION GAP 8.5 mmol/L (8-16); BILIRUBIN - DIRECT 1.19 mg/dL (0.00-0.30); BILIRUBIN - INDIRECT 1.08 mg/dL (0.00-1.00); BILIRUBIN - TOTAL 2.27 mg/dL (0.2-1.3); CALCIUM 8.4 mg/dL (8.5-10.1); CREATININE - SERUM 1.3 mg/dL (0.6-1.3); POTASSIUM - SERUM 3.5 mmol/L (3.5-5.1); PROTEIN - SERUM 5.7 g/dL (6.4-8.2)
[2018-01-16 05:24] LABS: MAGNESIUM - SERUM 0.7 mg/dL (1.8-2.4)
[2018-01-16 06:14] LABS: FOLATE (FOLIC ACID) - SERUM 3.3 ng/mL (>3.0)
[2018-01-16 09:56] LABS: BASOPHILS 0.6 % (0-2); EOSINOPHILS 10.6 % (0-7); HEMATOCRIT 25.9 % (42.0-54.0); HEMOGLOBIN 8.4 g/dL (13.5-17.5); IMMATURE GRANULOCYTES 0.3 % (0-5); LYMPHOCYTES 10.3 % (15-50); MCH 32.9 pg (26.0-34.0); MCHC 32.4 g/dL (31.0-37.0); MCV 101.6 fL (80.0-100.0); MEAN PLATELET VOLUME 9.4 fL (7.4-10.4); NEUTROPHILS 73.2 % (40-80); PLATELET COUNT 106 10x3/uL (130-400); RBC 2.55 10x6/uL (4.20-6.10); RDW 19.1 % (11.5-14.5); WBC 3.4 10x3/uL (4.8-10.8)
[2018-01-16 10:14] LABS: ALBUMIN 1.9 g/dL (3.4-5.0); ANION GAP 9.2 mmol/L (8-16); BILIRUBIN - TOTAL 2.08 mg/dL (0.2-1.3); CALCIUM 8.5 mg/dL (8.5-10.1); CARBON DIOXIDE 25.8 mmol/L (21.0-32.0); CREATININE - SERUM 1.3 mg/dL (0.6-1.3); PROTEIN - SERUM 5.8 g/dL (6.4-8.2)
[2018-01-17] VITALS: BP 147/84
[2018-01-17 04:00] VITALS: BP 141/73
[2018-01-17 06:36] LABS: BASOPHILS 0.6 % (0-2); EOSINOPHILS 10.9 % (0-7); HEMATOCRIT 26.4 % (42.0-54.0); HEMOGLOBIN 8.6 g/dL (13.5-17.5); IMMATURE GRANULOCYTES 0.6 % (0-5); LYMPHOCYTES 14.1 % (15-50); MCH 33.2 pg (26.0-34.0); MCHC 32.6 g/dL (31.0-37.0); MCV 101.9 fL (80.0-100.0); MEAN PLATELET VOLUME 9.3 fL (7.4-10.4); MONOCYTES 6.5 % (2-11); NEUTROPHILS 67.3 % (40-80); PLATELET COUNT 108 10x3/uL (130-400); RBC 2.59 10x6/uL (4.20-6.10); RDW 18.8 % (11.5-14.5); WBC 3.4 10x3/uL (4.8-10.8)
[2018-01-17 07:10] LABS: INR 1.96 (0.85-1.17); PROTIME 21.6 SECONDS (11.6-15.0)
[2018-01-17 07:16] LABS: ALBUMIN 2.2 g/dL (3.4-5.0); ANION GAP 12.9 mmol/L (8-16); BILIRUBIN - TOTAL 1.74 mg/dL (0.2-1.3); CALCIUM 8.4 mg/dL (8.5-10.1); CREATININE - SERUM 1.3 mg/dL (0.6-1.3); MAGNESIUM - SERUM 1.4 mg/dL (1.8-2.4); POTASSIUM - SERUM 3.9 mmol/L (3.5-5.1); PROTEIN - SERUM 6.3 g/dL (6.4-8.2)
[2018-01-17 07:48] LABS: BILIRUBIN - DIRECT 0.86 mg/dL (0.00-0.30); BILIRUBIN - INDIRECT 0.88 mg/dL (0.00-1.00)
[2018-01-17 08:57] VITALS: BP 140/69
[2018-01-17 12:20] VITALS: BP 133/88
[2018-01-17 13:39] VITALS: Ht 188 cm; Wt 120.7 kg
[2018-01-17 16:19] VITALS: BP 143/90
[2018-01-17 20:02] VITALS: BP 120/59
[2018-01-18 00:24] VITALS: BP 145/64
[2018-01-18 04:50] LABS: BASOPHILS 0.6 % (0-2); EOSINOPHILS 12.5 % (0-7); HEMATOCRIT 26.5 % (42.0-54.0); HEMOGLOBIN 8.6 g/dL (13.5-17.5); IMMATURE GRANULOCYTES 0.3 % (0-5); LYMPHOCYTES 15.3 % (15-50); MCH 33.1 pg (26.0-34.0); MCHC 32.5 g/dL (31.0-37.0); MCV 101.9 fL (80.0-100.0); MEAN PLATELET VOLUME 9.2 fL (7.4-10.4); MONOCYTES 6.8 % (2-11); NEUTROPHILS 64.5 % (40-80); PLATELET COUNT 115 10x3/uL (130-400); RDW 18.8 % (11.5-14.5); WBC 3.5 10x3/uL (4.8-10.8)
[2018-01-18 04:56] VITALS: BP 142/79
[2018-01-18 05:00] LABS: ANION GAP 11.9 mmol/L (8-16); CARBON DIOXIDE 24.9 mmol/L (21.0-32.0); CREATININE - SERUM 1.3 mg/dL (0.6-1.3); MAGNESIUM - SERUM 1.6 mg/dL (1.8-2.4); POTASSIUM - SERUM 3.8 mmol/L (3.5-5.1)
[2018-01-18 09:10] VITALS: BP 137/77
[2018-01-18 12:13] VITALS: BP 116/72
[2018-01-18 14:44] VITALS: BP 134/81
[2018-01-18 20:47] VITALS: BP 140/76
[2018-01-19 01:03] VITALS: BP 142/75
[2018-01-19 05:22] LABS: BASOPHILS 0.6 % (0-2); EOSINOPHILS 10.8 % (0-7); HEMATOCRIT 26.6 % (42.0-54.0); HEMOGLOBIN 8.7 g/dL (13.5-17.5); IMMATURE GRANULOCYTES 0.6 % (0-5); LYMPHOCYTES 19.4 % (15-50); MCH 33.6 pg (26.0-34.0); MCHC 32.7 g/dL (31.0-37.0); MCV 102.7 fL (80.0-100.0); MEAN PLATELET VOLUME 9.2 fL (7.4-10.4); MONOCYTES 7.9 % (2-11); NEUTROPHILS 60.7 % (40-80); PLATELET COUNT 121 10x3/uL (130-400); RBC 2.59 10x6/uL (4.20-6.10); RDW 19.1 % (11.5-14.5); WBC 3.2 10x3/uL (4.8-10.8)
[2018-01-19 05:58] VITALS: BP 129/58
[2018-01-19 05:58] LABS: ALBUMIN 2.2 g/dL (3.4-5.0); ANION GAP 11.3 mmol/L (8-16); BILIRUBIN - TOTAL 1.84 mg/dL (0.2-1.3); CALCIUM 7.6 mg/dL (8.5-10.1); CARBON DIOXIDE 24.9 mmol/L (21.0-32.0); CREATININE - SERUM 1.2 mg/dL (0.6-1.3); MAGNESIUM - SERUM 1.6 mg/dL (1.8-2.4); POTASSIUM - SERUM 4.2 mmol/L (3.5-5.1); PROTEIN - SERUM 6.4 g/dL (6.4-8.2)
[2018-01-19 11:28] VITALS: BP 118/80
[2018-01-19 16:38] VITALS: BP 130/82
[2018-01-19 22:09] VITALS: BP 135/84
[2018-01-20 07:45] LABS: BASOPHILS 0.6 % (0-2); EOSINOPHILS 9.8 % (0-7); HEMATOCRIT 27.4 % (42.0-54.0); HEMOGLOBIN 8.8 g/dL (13.5-17.5); IMMATURE GRANULOCYTES 0.6 % (0-5); LYMPHOCYTES 25.2 % (15-50); MCH 33.3 pg (26.0-34.0); MCHC 32.1 g/dL (31.0-37.0); MCV 103.8 fL (80.0-100.0); MEAN PLATELET VOLUME 10.3 fL (7.4-10.4); MONOCYTES 7.6 % (2-11); NEUTROPHILS 56.2 % (40-80); RBC 2.64 10x6/uL (4.20-6.10); RDW 18.9 % (11.5-14.5); WBC 3.6 10x3/uL (4.8-10.8)
[2018-01-20 07:46] LABS: PLATELET COUNT 165 10x3/uL (130-400)
[2018-01-20 08:14] VITALS: BP 116/80
[2018-01-20 08:48] LABS: ALBUMIN 2.2 g/dL (3.4-5.0); ANION GAP 8.1 mmol/L (8-16); BILIRUBIN - DIRECT 1.04 mg/dL (0.00-0.30); BILIRUBIN - INDIRECT 0.82 mg/dL (0.00-1.00); BILIRUBIN - TOTAL 1.86 mg/dL (0.2-1.3); CALCIUM 7.5 mg/dL (8.5-10.1); CARBON DIOXIDE 30.7 mmol/L (21.0-32.0); CREATININE - SERUM 1.1 mg/dL (0.6-1.3); POTASSIUM - SERUM 3.8 mmol/L (3.5-5.1); PROTEIN - SERUM 6.7 g/dL (6.4-8.2)
[2018-01-20 13:14] VITALS: BP 105/72
[2018-01-20 17:50] VITALS: BP 108/72
[2018-01-20 21:04] VITALS: BP 113/57
[2018-01-21 00:18] VITALS: BP 124/60
[2018-01-21 04:29] VITALS: BP 108/56
[2018-01-21 08:10] VITALS: BP 107/65
[2018-01-21 10:31] LABS: BASOPHILS 2.2 % (0-2); EOSINOPHILS 9.6 % (0-7); HEMATOCRIT 27.9 % (42.0-54.0); HEMOGLOBIN 8.8 g/dL (13.5-17.5); IMMATURE GRANULOCYTES 0.5 % (0-5); LYMPHOCYTES 28.2 % (15-50); MCH 33.2 pg (26.0-34.0); MCHC 31.5 g/dL (31.0-37.0); MCV 105.3 fL (80.0-100.0); MEAN PLATELET VOLUME 10.1 fL (7.4-10.4); MONOCYTES 8.2 % (2-11); NEUTROPHILS 51.3 % (40-80); PLATELET COUNT 140 10x3/uL (130-400); RBC 2.65 10x6/uL (4.20-6.10); RDW 18.6 % (11.5-14.5); WBC 4.2 10x3/uL (4.8-10.8)
[2018-01-21 10:58] LABS: ANION GAP 9.7 mmol/L (8-16); BILIRUBIN - TOTAL 1.29 mg/dL (0.2-1.3); CALCIUM 7.1 mg/dL (8.5-10.1); CARBON DIOXIDE 28.9 mmol/L (21.0-32.0); CREATININE - SERUM 1.3 mg/dL (0.6-1.3); POTASSIUM - SERUM 3.6 mmol/L (3.5-5.1); PROTEIN - SERUM 6.5 g/dL (6.4-8.2)
[2018-01-21 12:45] VITALS: BP 112/68
[2018-01-21 17:52] VITALS: BP 133/69
[2018-01-21 21:23] VITALS: BP 95/56
[2018-01-22 05:52] VITALS: BP 93/53
[2018-01-22 06:09] LABS: BASOPHILS 0.5 % (0-2); EOSINOPHILS 7.6 % (0-7); HEMATOCRIT 28.8 % (42.0-54.0); HEMOGLOBIN 9.3 g/dL (13.5-17.5); IMMATURE GRANULOCYTES 0.2 % (0-5); LYMPHOCYTES 24.1 % (15-50); MCHC 32.3 g/dL (31.0-37.0); MEAN PLATELET VOLUME 9.7 fL (7.4-10.4); MONOCYTES 10.8 % (2-11); NEUTROPHILS 56.8 % (40-80); PLATELET COUNT 166 10x3/uL (130-400); RBC 2.82 10x6/uL (4.20-6.10); RDW 18.2 % (11.5-14.5); WBC 4.4 10x3/uL (4.8-10.8)
[2018-01-22 06:19] LABS: MCV 102.1 fL (80.0-100.0)
[2018-01-22 06:44] LABS: ALBUMIN 2.2 g/dL (3.4-5.0); ANION GAP 13.1 mmol/L (8-16); BILIRUBIN - TOTAL 1.46 mg/dL (0.2-1.3); CARBON DIOXIDE 26.8 mmol/L (21.0-32.0); CREATININE - SERUM 1.2 mg/dL (0.6-1.3); POTASSIUM - SERUM 3.9 mmol/L (3.5-5.1); PROTEIN - SERUM 7.2 g/dL (6.4-8.2)
[2018-01-22 08:35] VITALS: BP 98/54
[2018-01-22 09:05] VITALS: BP 138/74
[2018-01-22] MEDS ORDERED: XIFAXAN550 MG PO (09:51)
[2018-01-22] MEDS ORDERED: CHRONULAC30 ML PO (09:52)
== END 2018-01-22 12:30 | disposition home or self-care (01) | DRG 393 ==
LOC: D.ER 05:45 → D.EDHOLD 07:12 → D.MS 07:12 → D.CVICU 10:11 → D.MS 01-16 17:44
PROVIDERS: Family Medicine; Internal Medicine Gastroenterology; Internal Medicine Nephrology
PROC: 05HY33Z Insertion of Infusion Device into Upper Vein, Percutaneous Approach (ICD-10-PCS; principal; 2018-01-15)
DX: K94.01 Colostomy hemorrhage (principal); R57.8 Other shock; F10.239 Alcohol dependence with withdrawal, unspecified; Y83.9 Surgical procedure, unspecified as the cause of abnormal reaction of the patient, or of later complication, without mention of misadventure at the time of the procedure; K70.10 Alcoholic hepatitis without ascites; E83.52 Hypercalcemia; D75.89 Other specified diseases of blood and blood-forming organs; E87.6 Hypokalemia; K70.40 Alcoholic hepatic failure without coma; I25.10 Atherosclerotic heart disease of native coronary artery without angina pectoris

== ENCOUNTER 2018-03-08 02:03 | Inpatient (IN) | payer MEDICAID ==
[2018-03-08] VITALS (8 sets, daily range): BP systolic 108–140; BP diastolic 64–82
[~2018-03-08] VITALS: Ht 188 cm; Wt 104.3 kg
[~2018-03-08 02:03] MED LIST changes: +CHRONULAC30 ML PO; +KLONOPIN1 MG PO; +XIFAXAN550 MG PO
[2018-03-08 02:38] LABS: BASOPHILS 0.5 % (0-2); HEMATOCRIT 31.3 % (42.0-54.0); HEMOGLOBIN 10.5 g/dL (13.5-17.5); IMMATURE GRANULOCYTES 0.5 % (0-5); LYMPHOCYTES 13.2 % (15-50); MCH 32.3 pg (26.0-34.0); MCHC 33.5 g/dL (31.0-37.0); MCV 96.3 fL (80.0-100.0); MEAN PLATELET VOLUME 8.4 fL (7.4-10.4); NEUTROPHILS 72.8 % (40-80); PLATELET COUNT 133 10x3/uL (130-400); RBC 3.25 10x6/uL (4.20-6.10); RDW 17.8 % (11.5-14.5); WBC 4.4 10x3/uL (4.8-10.8)
[2018-03-08 02:55] LABS: ALBUMIN 2.4 g/dL (3.4-5.0); ANION GAP 13.7 mmol/L (8-16); BILIRUBIN - TOTAL 2.63 mg/dL (0.2-1.3); CARBON DIOXIDE 25.7 mmol/L (21.0-32.0); CREATININE - SERUM 1.1 mg/dL (0.6-1.3); POTASSIUM - SERUM 3.4 mmol/L (3.5-5.1); PROTEIN - SERUM 8.9 g/dL (6.4-8.2)
--- NOTE | 2018-03-08 03:05 | NUR ---
COLOSTOMY CARE PROVIDED, PT TOLERATED WELL.
[2018-03-08 03:13] LABS: MAGNESIUM - SERUM 1.8 mg/dL (1.8-2.4); THYROID STIMULATING HORMONE 5.95 uIU/mL (0.36-3.74); TROPONIN-I 0.044 ng/mL (0.000-0.060)
--- NOTE | 2018-03-08 03:36 | NUR ---
PT TO RADIOLOGY.
--- NOTE | 2018-03-08 03:52 | NUR ---
PT RETURNED FROM RADIOLOGY.
[2018-03-08 04:14] LABS: APPEARANCE CLEAR (CLEAR); BILIRUBIN NEGATIVE (NEGATIVE); COLOR DK YELLOW (YELLOW); GLUCOSE NEGATIVE (NEGATIVE); KETONE NEGATIVE (NEGATIVE); NITRITE NEGATIVE (NEGATIVE); PROTEIN NEGATIVE (NEGATIVE); SPECIFIC GRAVITY 1.015 (1.005-1.020); UROBILINOGEN NORMAL (NORMAL)
--- NOTE | 2018-03-08 04:15 | NUR ---
ASSUMED CARE OF PATIENT, RESTING ON STRETCHER QUIETLY, C/O GENERALIZED PAIN, STATES HIS NAUSEA IS BETTER. CALL LIGHT WITHIN REACH.
[2018-03-08 04:24] LABS: BACTERIA FEW /hpf (NONE SEEN); EPITHELIAL CELLS OCC /hpf (0-5); RED CELLS - URINE 0-5 /hpf (0-5); WHITE CELLS - URINE 0-5 /hpf (0-5)
--- NOTE | 2018-03-08 05:28 | NUR ---
MEDICATION GIVEN PER ORDER, STATES HE FEELS SOME BETTER, WANTED TO WAIT ON THE LACULOSE UNTIL HIS NAUSEA WAS GONE. CALL LIGHT WITHIN REACH.
[2018-03-08 06:07] LABS: BASOPHILS 0.5 % (0-2); EOSINOPHILS 2.7 % (0-7); HEMATOCRIT 30.1 % (42.0-54.0); HEMOGLOBIN 10.1 g/dL (13.5-17.5); LYMPHOCYTES 11.1 % (15-50); MCH 32.4 pg (26.0-34.0); MCHC 33.6 g/dL (31.0-37.0); MCV 96.5 fL (80.0-100.0); MONOCYTES 6.8 % (2-11); NEUTROPHILS 77.9 % (40-80); PLATELET COUNT 118 10x3/uL (130-400); RBC 3.12 10x6/uL (4.20-6.10); RDW 17.8 % (11.5-14.5); WBC 4.1 10x3/uL (4.8-10.8)
[2018-03-08 06:44] LABS: ALBUMIN 2.4 g/dL (3.4-5.0); ALKALINE PHOSPHATASE 126 U/L (46-116); ALT (SGPT) 26 U/L (10-68); BILIRUBIN - TOTAL 2.79 mg/dL (0.2-1.3); CALC OSMOLALITY 268 mosm/kg (275-300); CALCIUM 8.1 mg/dL (8.5-10.1); CARBON DIOXIDE 26.6 mmol/L (21.0-32.0); CHLORIDE - SERUM 100 mmol/L (98-107); CREATININE - SERUM 0.9 mg/dL (0.6-1.3); GLUCOSE 106 mg/dL (74-106); POTASSIUM - SERUM 3.3 mmol/L (3.5-5.1); PROTEIN - SERUM 8.5 g/dL (6.4-8.2); SODIUM 136 mmol/L (136-145); UREA NITROGEN 5 mg/dL (7-18); eGFR NON AFRICAN AMERICAN > 90 mL/min (90-120)
--- NOTE | 2018-03-08 07:00 | NUR ---
BLOOD CONSENT FORM SIGNED AND ON THE CHART. REPORT GIVEN TO MEJIA DIAS
--- NOTE | 2018-03-08 07:06 | NUR ---
LAB CALLED HAVING TROUBLE MATHCHING PT DUE TO HIM HAVING A LOT OF ANTIBODIES IN HIS BLOOD. PT RESTING ON LEFT LATERAL SIDE, PROTONIX INFUSING AT 10CC/HR.
[2018-03-08 07:17] LABS: INR 1.6 (0.85-1.17)
[2018-03-08 07:18] LABS: PROTIME 15.9 SECONDS (11.6-15.0)
[2018-03-08 08:08] LABS: UDS - AMPHET NEGATIVE QUAL (NEGATIVE); UDS - BARB NEGATIVE QUAL (NEGATIVE); UDS - BENZO NEGATIVE QUAL (NEGATIVE); UDS - COCAINE NEGATIVE QUAL (NEGATIVE); UDS - OPIATE NEGATIVE QUAL (NEGATIVE); UDS - PCP NEGATIVE QUAL (NEGATIVE); UDS - THC NEGATIVE QUAL (NEGATIVE)
--- NOTE | 2018-03-08 09:38 | NUR ---
rECEIVED TO ROOM FROM ER. TRANSFERED SELF VIA BED. COLOSTOMY INTACT TO ABDOMEN. DENIES ANY PAIN OR DISCOMFORT AT THIS TIME. TELEMETRY UNAVAILABLE AT THIS TIME. ENCOURAGED TO USE CALL LIGHT FOR ASSIST AND VERBALIZED UNDERSTANDING.
[2018-03-08 10:47] LABS: BASOPHILS 0.5 % (0-2); EOSINOPHILS 1.2 % (0-7); HEMATOCRIT 29.5 % (42.0-54.0); HEMOGLOBIN 9.8 g/dL (13.5-17.5); IMMATURE GRANULOCYTES 0.7 % (0-5); LYMPHOCYTES 7.9 % (15-50); MCH 31.9 pg (26.0-34.0); MCHC 33.2 g/dL (31.0-37.0); MCV 96.1 fL (80.0-100.0); MEAN PLATELET VOLUME 8.3 fL (7.4-10.4); MONOCYTES 4.3 % (2-11); NEUTROPHILS 85.4 % (40-80); PLATELET COUNT 119 10x3/uL (130-400); RBC 3.07 10x6/uL (4.20-6.10); RDW 17.7 % (11.5-14.5); WBC 4.2 10x3/uL (4.8-10.8)
--- NOTE | 2018-03-08 16:18 | NUR ---
1 UNIT PRBC'S INFUSING AT PRESCRIBED RATE WITH NO S/S OF INFECTION/INFILTRATON NOTED TO LEFT SHOULDER. TOLERATING WELL
--- NOTE | 2018-03-08 19:20 | NUR ---
PT IN BED RESTING QUIETLY WITH EYES CLOSED. ALERT AND ORIENTED X4. RESPIRATIONS EVEN AND UNLABORED. VS STABLE AND AFEBRILE. NO VISUAL CUES OF DISTRESS NOTED. DENIES ANY OTHER NEEDS AT THIS TIME. BED LOW, SIDE RAILS UP X2. CALL LIGHT IN REACH. WILL CONTINUE TO MONITOR.
[2018-03-09 00:35] VITALS: BP 122/86
[2018-03-09 04:59] VITALS: BP 130/92
[2018-03-09 07:05] LABS: BASOPHILS 0.3 % (0-2); EOSINOPHILS 6.5 % (0-7); HEMATOCRIT 30.4 % (42.0-54.0); HEMOGLOBIN 10.1 g/dL (13.5-17.5); IMMATURE GRANULOCYTES 2.1 % (0-5); LYMPHOCYTES 14.7 % (15-50); MCH 31.8 pg (26.0-34.0); MCHC 33.2 g/dL (31.0-37.0); MCV 95.6 fL (80.0-100.0); MEAN PLATELET VOLUME 8.1 fL (7.4-10.4); MONOCYTES 5.9 % (2-11); NEUTROPHILS 70.5 % (40-80); PLATELET COUNT 106 10x3/uL (130-400); RBC 3.18 10x6/uL (4.20-6.10); RDW 18.2 % (11.5-14.5); WBC 3.4 10x3/uL (4.8-10.8)
[2018-03-09 07:42] LABS: ALBUMIN 2.3 g/dL (3.4-5.0); ALKALINE PHOSPHATASE 110 U/L (46-116); ALT (SGPT) 22 U/L (10-68); BILIRUBIN - TOTAL 4.03 mg/dL (0.2-1.3); CALC OSMOLALITY 271 mosm/kg (275-300); CALCIUM 7.9 mg/dL (8.5-10.1); CARBON DIOXIDE 25.3 mmol/L (21.0-32.0); CHLORIDE - SERUM 102 mmol/L (98-107); CREATININE - SERUM 0.9 mg/dL (0.6-1.3); GLUCOSE 100 mg/dL (74-106); POTASSIUM - SERUM 3.2 mmol/L (3.5-5.1); PROTEIN - SERUM 7.8 g/dL (6.4-8.2); SODIUM 137 mmol/L (136-145); UREA NITROGEN 6 mg/dL (7-18); eGFR NON AFRICAN AMERICAN > 90 mL/min (90-120)
[2018-03-09 09:00] VITALS: BP 144/91
--- NOTE | 2018-03-09 10:33 | NUR ---
ALERT AND ORIENTED X3. COLOSTOMY INTACT. BS NOTED X 4 AND NONTENDER AT THIS TIME. IV N/S INFUSING TO RT. FOREAM WITH PROTONIX AND NS AT PRESCRIBED RATE W/O ANY S/S OF INFECTION/INFILTRRATION. LUNGS CTA. DILAUDID PATENT DRAFTER INTACT AT PRESCRIBED RATE.FALL RISK PROTOCOL IN PLACE. ENCOURAGED TO USE CALL LIGHT FOR ASSIST!!
[2018-03-09 11:11] LABS: MAGNESIUM - SERUM 2.1 mg/dL (1.8-2.4); PHOSPHOROUS 2.9 mg/dL (2.5-4.9)
[2018-03-09 12:00] VITALS: BP 145/93
[2018-03-09 20:47] VITALS: BP 140/92
[2018-03-10 00:41] VITALS: BP 154/84
[2018-03-10 04:52] VITALS: BP 144/98
[2018-03-10 07:58] LABS: EOSINOPHILS 7.4 % (0-7); HEMATOCRIT 33.1 % (42.0-54.0); IMMATURE GRANULOCYTES 1.9 % (0-5); MCH 32.1 pg (26.0-34.0); MCHC 33.2 g/dL (31.0-37.0); MCV 96.5 fL (80.0-100.0); MEAN PLATELET VOLUME 8.6 fL (7.4-10.4); MONOCYTES 9.1 % (2-11); NEUTROPHILS 64.6 % (40-80); PLATELET COUNT 117 10x3/uL (130-400); RBC 3.43 10x6/uL (4.20-6.10); RDW 17.6 % (11.5-14.5); WBC 4.2 10x3/uL (4.8-10.8)
--- NOTE | 2018-03-10 08:30 | NUR ---
PATIENT NPO AND LEFT AFTER PRE-OP MEDICATIONS GIVEN.IV INTACT TO LEFT SHOULDER AND PATENT. STABLE AT TIME OF DEPARTURE WITH STAFF.
[2018-03-10 08:34] LABS: ALBUMIN 2.6 g/dL (3.4-5.0); ANION GAP 11.4 mmol/L (8-16); BILIRUBIN - TOTAL 4.59 mg/dL (0.2-1.3); CALCIUM 8.3 mg/dL (8.5-10.1); CARBON DIOXIDE 25.9 mmol/L (21.0-32.0); CREATININE - SERUM 1.1 mg/dL (0.6-1.3); POTASSIUM - SERUM 3.3 mmol/L (3.5-5.1); PROTEIN - SERUM 8.6 g/dL (6.4-8.2)
[2018-03-10 12:00] VITALS: BP 141/89
[2018-03-10 21:52] VITALS: BP 136/90
--- NOTE | 2018-03-11 04:30 | NUR ---
RESTING QUITELY IN BED RESP UNLABORED NO APPARENT DISTRESS CALL LIGHT IN REACH
[2018-03-11 04:50] VITALS: BP 132/89
[2018-03-11 05:45] LABS: EOSINOPHILS 4.9 % (0-7); HEMATOCRIT 32.8 % (42.0-54.0); HEMOGLOBIN 10.7 g/dL (13.5-17.5); IMMATURE GRANULOCYTES 1.8 % (0-5); LYMPHOCYTES 18.2 % (15-50); MCH 31.6 pg (26.0-34.0); MCHC 32.6 g/dL (31.0-37.0); MCV 96.8 fL (80.0-100.0); MEAN PLATELET VOLUME 8.3 fL (7.4-10.4); NEUTROPHILS 67.1 % (40-80); PLATELET COUNT 116 10x3/uL (130-400); RBC 3.39 10x6/uL (4.20-6.10); RDW 17.4 % (11.5-14.5); WBC 3.8 10x3/uL (4.8-10.8)
[2018-03-11 06:10] LABS: ALBUMIN 2.4 g/dL (3.4-5.0); ALKALINE PHOSPHATASE 111 U/L (46-116); ALT (SGPT) 22 U/L (10-68); BILIRUBIN - TOTAL 3.96 mg/dL (0.2-1.3); CALC OSMOLALITY 274 mosm/kg (275-300); CALCIUM 8.1 mg/dL (8.5-10.1); CARBON DIOXIDE 26.4 mmol/L (21.0-32.0); CHLORIDE - SERUM 105 mmol/L (98-107); GLUCOSE 92 mg/dL (74-106); PROTEIN - SERUM 8.2 g/dL (6.4-8.2); SODIUM 139 mmol/L (136-145); UREA NITROGEN 5 mg/dL (7-18); eGFR NON AFRICAN AMERICAN 82 mL/min (90-120)
--- NOTE | 2018-03-11 07:50 | NUR ---
PATIENT RESTING IN BED, NO DISTRESS. CL IN REACH, BED ALARM ON
[2018-03-11 08:33] VITALS: BP 159/98
--- NOTE | 2018-03-11 10:37 | NUR ---
PATIENT TOOK APROX 15ML OF CHRONULAC AND REFUSED REMAINING DOSE. NOTIEFIED [facility] COLMENARES APN
[2018-03-11 13:35] VITALS: BP 158/97
--- NOTE | 2018-03-11 14:32 | MORECARE ---
CASE MANAGEMENT DISCHARGE SUMMARY PATIENT: SERGE BOWLES UNIT: [id number] ADM DATE: 03/08/18 AGE: 57 : 60 SEX: M ROOM/BED: D.2231 AUTHOR: KIERA LAURENT PHYSICIAN: REFERRING PHYSICIAN: MARCO COLLADO MD DATE OF SERVICE: 03/11/18 Discharge Plan Patient Name: SERGE BOWLES Facility: [facility]:[place] : 1960 Planned Disposition: Anticipated Discharge Date: Discharge Date: Expected LOS: Initial Reviewer: [email or web address] Initial Review Date: 03/11/2018 Generated: 03/11/18 3:32 pm Comments DCP- Discharge Planning Updated by [email or web address]: Suzette Linares on 03/11/18 1:[address] Patient Name: SERGE BOWLES Admission Status: ER Accout number: [id number] Admission Date: 03-08-2018 : 1960 Admission Diagnosis: Attending: MARCO COLLADO Current LOS: 3 Anticipated DC Date: Planned Disposition: Primary Insurance: MEDICAID [place] Discharge Planning Comments: CM met with patient to discuss discharge planning, he is alone in the room. He is unable to answer many questions appropriately. He does state he has seen Dr. Fagan in the past. When asked where he lived, states "I don't live on the streets." He states he lives in an apartment, but also states he goes to the [facility]. He states he drove himself to the hospital. He has a sister listed as emergency contact. I tried to call her at [phone] with no answer and the message did not sound like she said Kiara. He has Medicaid, so he does not have any rehab benefits. I asked about home health and he states he used to have someone that came every day but he does not have anyone now. Not sure if he is alert enough to answer any questions appropriately. CM will continue to follow and assist with discharge planning/needs. Filing Clerk: Suzette Linares DCPIA - Discharge Planning Initial Assessment Updated by [email or web address]: Suzette Linares on 03/11/18 2:26 pm * Is the patient Alert and Oriented? No * ADLs Independent * Equipment Ostomy Supplies * List name and contact numbers for known caregivers / representatives who currently or will assist patient after discharge: Kiara Brown - [phone]? * Additional services required to return to the preadmission environment? Yes * Can the patient safely return to the preadmission environment? No * Has this patient been hospitalized within the prior 30 days at any hospital? No Patient Name: SERGE BOWLES Page [phone] at 1432 All edits/amendments must be made on the electronic document DICTATION DATE: 03/11/181431 FIRMWARE SOFTWARE VERIFICATION ENGINEER: TENZIN 03/11/181431 RPT#: [id number] [place] DATE: STATUS: ADM IN [address] [place] [address] END OF REPORT
[2018-03-11 14:41] VITALS: Ht 188 cm; Wt 104.3 kg
--- NOTE | 2018-03-11 15:55 | NUR ---
PATIENT VOMITED FOLLOWING LACTULOSE GIVEN PO. ZOFRAN GIVEN IV
--- NOTE | 2018-03-11 20:30 | NUR ---
AWAKE,ALERT WITH CONFUSION NOTED.IV TO LEFT UPPER ARM INTACT WITHOUT REDNESS OR EDEMA NOTED.ABD DISTENTDED WITH COLOSTOMY NOTED. DRANK ALL 60 ML OF CHRONULAC AT 2030. THIS NURSE AND SLIPMAN ATTEMPTED CHRONULAC EMENA ORDERED WITHOUT SUCCESS. PATIENT COMPLAINING OF PAIN. OSTOMY SITE WITH BLOOD NOTED.
[2018-03-11 21:50] VITALS: BP 144/99
--- NOTE | 2018-03-12 02:59 | NUR ---
DIARRHEA X 2 THIS SHIFT.OSTOMY APPLIANCE CHANGED.TOLERATED WELL.
--- NOTE | 2018-03-12 03:30 | NUR ---
RESTING QUITELY IN BED RESP UNLABORED NO APPARENT DISTRESS CALL [facility]ONE KHAN
[2018-03-12 05:05] LABS: BASOPHILS 1.1 % (0-2); EOSINOPHILS 6.9 % (0-7); HEMATOCRIT 32.9 % (42.0-54.0); HEMOGLOBIN 10.9 g/dL (13.5-17.5); IMMATURE GRANULOCYTES 1.6 % (0-5); LYMPHOCYTES 21.8 % (15-50); MCH 31.9 pg (26.0-34.0); MCHC 33.1 g/dL (31.0-37.0); MCV 96.2 fL (80.0-100.0); MEAN PLATELET VOLUME 8.2 fL (7.4-10.4); MONOCYTES 8.8 % (2-11); NEUTROPHILS 59.8 % (40-80); PLATELET COUNT 113 10x3/uL (130-400); RBC 3.42 10x6/uL (4.20-6.10); RDW 17.5 % (11.5-14.5); WBC 3.8 10x3/uL (4.8-10.8)
[2018-03-12 05:26] VITALS: BP 154/84
[2018-03-12 05:35] LABS: ALBUMIN 2.5 g/dL (3.4-5.0); ALKALINE PHOSPHATASE 111 U/L (46-116); ALT (SGPT) 26 U/L (10-68); BILIRUBIN - TOTAL 4.11 mg/dL (0.2-1.3); CALC OSMOLALITY 277 mosm/kg (275-300); CALCIUM 8.2 mg/dL (8.5-10.1); CARBON DIOXIDE 25.6 mmol/L (21.0-32.0); CHLORIDE - SERUM 107 mmol/L (98-107); GLUCOSE 95 mg/dL (74-106); PROTEIN - SERUM 8.2 g/dL (6.4-8.2); SODIUM 141 mmol/L (136-145); UREA NITROGEN 4 mg/dL (7-18); eGFR NON AFRICAN AMERICAN 82 mL/min (90-120)
[2018-03-12 05:42] LABS: POTASSIUM - SERUM 2.9 mmol/L (3.5-5.1)
[2018-03-12 08:49] VITALS: BP 155/94
--- NOTE | 2018-03-12 11:59 | MORECARE ---
CASE MANAGEMENT DISCHARGE SUMMARY PATIENT: SERGE BOWLES UNIT: [id number] ADM DATE: 03/08/18 AGE: 57 : 60 SEX: M ROOM/BED: D.2231 AUTHOR: KIERA LAURENT PHYSICIAN: REFERRING PHYSICIAN: MARCO COLLADO MD DATE OF SERVICE: 03/12/18 Discharge Plan Patient Name: SERGE BOWLES Facility: [facility]:[place] : 1960 Planned Disposition: Anticipated Discharge Date: Discharge Date: Expected LOS: Initial Reviewer: [id number] Initial Review Date: 03/11/2018 Generated: 03/12/18 12:59 pm Comments DCP- Discharge Planning Updated by [email or web address]: Suzette Linares on 03/12/18 10:[address] CM met with patient again today concerning discharge planning. States he lives at the [address] apartment. He was able to tell me his sister's name, but states "I don't want to get her involved" when I asked if I could call her. States "my dad was an furnace repair mechanic" when I asked again where he lived. Spoke with Dr. Ware's nurse practioner, he may need a psychiatric eval considering his psychiatric history. CM will continue to follow and assist with discharge planning/needs. DCP- Discharge Planning Updated by [id number]: Suzette Linares on 03/11/18 1:[address] Patient Name: SERGE BOWLES Admission Status: ER Accout number: [id number] Admission Date: 03-08-2018 : 1960 Admission Diagnosis: Attending: MARCO COLLADO Current LOS: 3 Anticipated DC Date: Planned Disposition: Primary Insurance: MEDICAID [place] Discharge Planning Comments: CM met with patient to discuss discharge planning, he is alone in the room. He is unable to answer many questions appropriately. He does state he has seen Dr. Fagan in the past. When asked where he lived, states "I don't live on the streets." He states he lives in an apartment, but also states he goes to the [facility]. He states he drove himself to the hospital. He has a sister listed as emergency contact. I tried to call her at [phone] with no answer and the message did not sound like she said Kiara. He has Medicaid, so he does not have any rehab benefits. I asked about home health and he states he used to have someone that came every day but he does not have anyone now. Not sure if he is alert enough to answer any questions appropriately. CM will continue to follow and assist with discharge planning/needs. Railroad Dining Car Stewardess: Suzette Linares DCPIA - Discharge Planning Initial Assessment Updated by [id number]: Suzette Linares on 03/11/18 2:26 pm * Is the patient Alert and Oriented? No * ADLs Independent * Equipment Ostomy Supplies * List name and contact numbers for known caregivers / representatives who currently or will assist patient after discharge: Kiara Arriola-[phone]? * Additional services required to return to the preadmission environment? Yes * Can the patient safely return to the preadmission environment? No * Has this patient been hospitalized within the prior 30 days at any hospital? No Last DP export: 03/11/18 1:32 p Patient Name: SERGE BOWLES Page [id number] at 1159 All edits/amendments must be made on the electronic document DICTATION DATE: 03/12/181158 HUSBANDRY PERSON: TENZIN 03/12/181158 RPT#: [id number] NM DATE: STATUS: ADM IN [facility] [address] [place] [address] END OF REPORT
[2018-03-12 12:48] VITALS: BP 160/97
[2018-03-12 16:48] VITALS: BP 157/89
--- NOTE | 2018-03-12 18:56 | NUR ---
COMPLETE COLOSTOMY APPLIANCE CHANGED
--- NOTE | 2018-03-12 20:33 | NUR ---
PT A/0X4 IT SEEMS. HE ANSWERS APPROPRIATLY, HOWEVER APPEARS CONFUSED. [place] OPERATOR DILAUDID FELL OFF eMAR. RENEWED/REPEATED PREVIOUS ORDER TIME NOW. WILL CONTINUE POC.
[2018-03-12 21:23] VITALS: BP 133/76
[2018-03-13 04:45] VITALS: BP 107/68
[2018-03-13 07:25] LABS: BASOPHILS 0.6 % (0-2); EOSINOPHILS 5.7 % (0-7); HEMATOCRIT 29.6 % (42.0-54.0); IMMATURE GRANULOCYTES 1.2 % (0-5); LYMPHOCYTES 23.3 % (15-50); MCH 32.6 pg (26.0-34.0); MCHC 33.8 g/dL (31.0-37.0); MCV 96.4 fL (80.0-100.0); MEAN PLATELET VOLUME 8.6 fL (7.4-10.4); MONOCYTES 9.1 % (2-11); NEUTROPHILS 60.1 % (40-80); PLATELET COUNT 95 10x3/uL (130-400); RBC 3.07 10x6/uL (4.20-6.10); RDW 17.6 % (11.5-14.5); WBC 3.3 10x3/uL (4.8-10.8)
[2018-03-13 07:42] LABS: ALBUMIN 2.3 g/dL (3.4-5.0); ALKALINE PHOSPHATASE 101 U/L (46-116); ALT (SGPT) 27 U/L (10-68); BILIRUBIN - TOTAL 3.68 mg/dL (0.2-1.3); CALC OSMOLALITY 281 mosm/kg (275-300); CALCIUM 8.3 mg/dL (8.5-10.1); CARBON DIOXIDE 25.8 mmol/L (21.0-32.0); CHLORIDE - SERUM 107 mmol/L (98-107); GLUCOSE 99 mg/dL (74-106); MAGNESIUM - SERUM 1.6 mg/dL (1.8-2.4); PROTEIN - SERUM 7.6 g/dL (6.4-8.2); SODIUM 143 mmol/L (136-145); UREA NITROGEN 4 mg/dL (7-18); eGFR NON AFRICAN AMERICAN 82 mL/min (90-120)
[2018-03-13 08:47] VITALS: BP 152/90
[2018-03-13 08:47] LABS: PLATELET ESTIMATE DECREASED
[2018-03-13 08:48] LABS: ROULEAUX OCC
[2018-03-13 12:45] VITALS: BP 124/75
--- NOTE | 2018-03-13 13:16 | NUR ---
NUTRITION F/U PT TOLERATING REG DIET WITH ~75% INTAKE LUNCH TODAY. WILL CONTINUE TO PROVIDE DIET, HONOR FOOD PREFERENCES. RD FOLLOWING
[2018-03-13 16:48] VITALS: BP 149/71
--- NOTE | 2018-03-13 20:04 | NUR ---
PT CONFUSED, SLURRED SPEACH. CAME ON TO SHIFT WITH HIM HAVING PULLED OUT HIS IV. WILL REASITE SOON I CAN. WILL CONT POC.
[2018-03-13 20:20] VITALS: BP 148/95
[2018-03-13 23:33] VITALS: BP 148/90
--- NOTE | 2018-03-13 23:35 | NUR ---
3 RNS ATTEMPTED AN IV ON PT. UNABLE TO OBTAIN ACCESS. WILL PUT IN VASC ACCESS CONSULT IN. WILL CONTINUE WITH PO MEDS AND POC.
--- NOTE | 2018-03-14 00:02 | NUR ---
PT CONTINUES TO MOAN AND YELL OUTSIDE ROOM. HE HAS URINATED ON THE FLOOR WHILE STANDING IN THE BATHROOM DOORWAY. CLEANED PT UP AND WILL CONTINUE POC BEST POSSIBLE.
--- NOTE | 2018-03-14 02:16 | NUR ---
PT STILL MOANING OUTSIDE ROOM. WHEN CONFRONTED PT DENIES MAKING NOISE OR SAYS HE DIDNT KNOW HE WAS DOING IT. WILL CONTINUE TO MONITOR. WILL CONTINUE POC.
[2018-03-14 04:05] VITALS: BP 140/99
[2018-03-14 05:40] LABS: BASOPHILS 1.5 % (0-2); EOSINOPHILS 4.1 % (0-7); HEMATOCRIT 31.7 % (42.0-54.0); HEMOGLOBIN 10.5 g/dL (13.5-17.5); IMMATURE GRANULOCYTES 1.5 % (0-5); LYMPHOCYTES 19.5 % (15-50); MCH 32.3 pg (26.0-34.0); MCHC 33.1 g/dL (31.0-37.0); MCV 97.5 fL (80.0-100.0); MEAN PLATELET VOLUME 8.5 fL (7.4-10.4); MONOCYTES 9.1 % (2-11); NEUTROPHILS 64.3 % (40-80); PLATELET COUNT 101 10x3/uL (130-400); RBC 3.25 10x6/uL (4.20-6.10); RDW 17.2 % (11.5-14.5); WBC 3.4 10x3/uL (4.8-10.8)
[2018-03-14 06:06] LABS: ANION GAP 14.5 mmol/L (8-16); CALCIUM 8.7 mg/dL (8.5-10.1); CARBON DIOXIDE 26.7 mmol/L (21.0-32.0); CREATININE - SERUM 1.1 mg/dL (0.6-1.3); MAGNESIUM - SERUM 1.8 mg/dL (1.8-2.4); POTASSIUM - SERUM 3.2 mmol/L (3.5-5.1)
--- NOTE | 2018-03-14 06:51 | NUR ---
MARY QUACH L CALLED OF 90.
--- NOTE | 2018-03-14 08:31 | NUR ---
PT LAYING IN BED RESTING WITH EYES OPEN. VASCULAR ACCESS CAME BY AND RESITED IV TO RIGHT WRIST, 22GAUGE X1 STICK. RESPIRATIONS EVEN AND UNLABORED, NO S/S OF DISTRESS NOTED. IV INFUSING, DILAUDID DRUM DRIER STARTED BACK UP PER EMAR. DENIES NEEDS AT THIS TIME. BED LOW AND LOCKED, SR UP X2, CL IN EASY REACH. WILL CONTINUE TO MONITOR.
[2018-03-14 08:51] VITALS: BP 143/89
[2018-03-14 13:37] VITALS: BP 129/78
--- NOTE | 2018-03-14 15:20 | CN ---
PATIENT NAME:SERGE BOWLES MEDICAL RECORD: [id number] : 60 LOCATION:D.MS [id number] ADMIT DATE: 03/08/18 ACCOUNT: [id number] CONSULTING PHYSICIAN: MARYJO VASQUEZ MD REFERRING PHYSICIAN: MARCO COLLADO MD DATE OF CONSULTATION: 03/13/2018 PSYCHIATRIC CONSULTATION IDENTIFYING DATA: The patient is 57 years old and he is admitted to the hospital secondary to gastrointestinal bleed. CHIEF COMPLAINT: Confusion. HISTORY OF PRESENT ILLNESS: The patient initially presented to the Emergency Room reporting that he was throwing up blood and was also having blood flow through his colostomy site. He was admitted because of this obvious upper and lower GI bleed. Unfortunately, the patient has a long history of alcoholism and he continues to drink. He says he is not drinking as much as he used to, but he is evasive about how much. I think he does not really recall. He has been stabilized and is at or near the point at which he may be discharged to home. Unfortunately, he continues to be anemic and has an elevated ammonia level. He is not showing significant symptoms of alcohol withdrawal. MENTAL STATUS EXAMINATION: The patient is alert and oriented to person and place. He also is oriented to the situation at least as far as what brought him to the hospital. He is not oriented to date. He cannot even tell me the correct year. He also endorses a lot of neurovegetative depressive symptoms, but says that he does not want to harm himself. His memory, concentration, and abstraction abilities are impaired. He denies psychotic symptoms as well as thoughts of harming others. ASSESSMENT: 1. Alcohol dependence. 2. Bipolar disorder by history. 3. Major depression. 4. Multiple medical problems including hypertension, acute kidney injury, coagulopathy, hepatic encephalopathy, and hypokalemia. PLAN: At this time, the patient is not appropriate to make reasonable informed consent decisions about his person or state. He cannot safely be left independently to live alone and manages medications and make good decisions. He says he is willing to go to a care home for rehab services. Regarding his mental illness, he is not acutely dangerous or psychotic. I am not sure if some of the depressive symptoms he is showing are situational. Obviously, his long-term prognosis will depend upon his abstinence from alcohol, but again today, he has an ammonia level of 92 and certainly is not going to be thinking clearly as long as that is elevated. The most direct way I can say this is that, currently, in his current condition, he is not safe to live alone or make his own decisions. TRANSINT:[id number] Voice Confirmation ID: [id number] DOCUMENT ID: [id number] CONSULT REPORT [id number] SERGE BOWLES PETER MD at 1520 CC: [id number] DICTATION DATE: 03/13/18 1456 SALESPERSON DRIVER: 03/13/18 1721 ADM IN [facility] [address] [place] [id number]
--- NOTE | 2018-03-14 17:19 | NUR ---
LAYING IN BED RESTING WITH EYES CLOSED. AWOKEN EASILY TO VERBAL STIMULI. COLOSTOMY BAG BURPED, GOOD OUTPUT NOTED. DENIES NEEDS. CL IN EASY REACH.
[2018-03-14 17:45] VITALS: BP 139/96
[2018-03-14 20:00] VITALS: BP 136/83
--- NOTE | 2018-03-14 22:59 | NUR ---
EMPTIED OSTOMY AND HAD 100 OUT. SOME CONTENTS ON OSTOMY WAFER. CHANGED ENTIRE OSTOMY TO PREVENT BREAKDOWN. STOMA BEEFY RED.
[2018-03-15] VITALS: BP 131/56
[2018-03-15 03:00] VITALS: BP 126/49
--- NOTE | 2018-03-15 03:41 | NUR ---
PT LYING IN BED, NO SIGNS OF DISTRESS. NO NEEDS OR COMPLAINTS. CL IN REACH, WILL CONTINUE TO MONITOR. ARIK ON
--- NOTE | 2018-03-15 05:15 | NUR ---
BURPED AND EMPTIED COLOSTOMY THROUGH OUT NIGHT. TOTAL OF 1200 CC THUS FAR.
[2018-03-15 05:21] LABS: BASOPHILS 0.6 % (0-2); IMMATURE GRANULOCYTES 1.2 % (0-5); LYMPHOCYTES 23.4 % (15-50); MCH 32.2 pg (26.0-34.0); MCHC 33.3 g/dL (31.0-37.0); MCV 96.5 fL (80.0-100.0); MEAN PLATELET VOLUME 8.5 fL (7.4-10.4); MONOCYTES 9.9 % (2-11); NEUTROPHILS 58.9 % (40-80); PLATELET COUNT 93 10x3/uL (130-400); RBC 3.11 10x6/uL (4.20-6.10); RDW 17.3 % (11.5-14.5); WBC 3.3 10x3/uL (4.8-10.8)
[2018-03-15 05:26] LABS: ANION GAP 11.2 mmol/L (8-16); CALCIUM 8.1 mg/dL (8.5-10.1); CREATININE - SERUM 1.1 mg/dL (0.6-1.3); POTASSIUM - SERUM 3.2 mmol/L (3.5-5.1)
--- NOTE | 2018-03-15 07:24 | NUR ---
LAB CALLED WITH AMMONIA LEVELS. PT CONTINUSE TO TREND IN CRITICAL HIGH LEVELS.
--- NOTE | 2018-03-15 07:44 | NUR ---
PT ASSISTED TO BATHROOM THIS AM, RESPIRATIONS EVEN AND UNLABORED, NO S/S OF DISTRESS NOTED. PT C/O ABDOMINAL PAIN, REMINDED PT OF DISABILITY REPRESENTATIVE AND HOW TO USE. PT VERBALIZED UNDERSTANDING. BOWEL SOUNDS PRESENT X4 QUAD. DENIES NEEDS AT THIS TIME. BED LOW AND LOCKED, SR UP X2, CL IN EASY REACH. WILL CONTINUE TO MONITOR THROUGHOUT THE DAY.
[2018-03-15 08:57] VITALS: BP 137/74
--- NOTE | 2018-03-15 09:47 | NUR ---
PT LAYING IN BED RESTING WITH EYES CLOSED, AWOKEN EASILY TO VERBAL STIMULI. COLOSTOMY BAG NOTED, BAG BURPED, LIGHT OUTPUT NOTED. RESPIRATIONS EVEN AND UNLABORED, NO S/S OF DISTRESS. BOWEL SOUNDS PRESENT X4. DENIES NEEDS AT THIS TIME. BED LOW AND LOCKED, SR UP X2, CL IN EASY REACH.
[2018-03-15 12:55] VITALS: BP 145/92
--- NOTE | 2018-03-15 16:02 | NUR ---
ALERT AND ORIENTEDIV TO LT. WRIST WITHNS AND NURSE HEALTHCARE MANAGER DILAUDID FOR PAIN MANAGEMENT. COLOSTOMY INTACT. ENCOURAGED TO USE CALL LIGHT FOR ASSIST. NO SIGNS OF OCCULT STOOL AT THIS TIME.
--- NOTE | 2018-03-15 19:31 | NUR ---
PT REMOVED IV, TIP INTACT. NEW IV RESITED TO LEFT HAND PER SHUBHAM DIAS. PATENT, SWAB CAPS IN USE. IV INFUSING AT THIS TIME. CL IN EASY REACH. DENIES NEEDS.
[2018-03-15 20:00] VITALS: BP 141/90
--- NOTE | 2018-03-15 20:21 | NUR ---
PT ALERT WHEN ENTERING THE ROOM. PT IS ORIENTED BUT STATES ODD PHRASES AND COMMENTS RANDOMLY BUT PT IS ALWAYS ABLE TO STATE REASON FOR STAY, LOCATION, AND IDENTIFIES SELF. PT HAS OSTOMY TO THE LLQ. NO COMPLAINTS OF PAIN AT THIS TIME. PT HAS PEDIATRIC SURGEON BUTTON AND CALL LIGHT IN REACH. LEFT HAND IV.
--- NOTE | 2018-03-15 21:45 | NUR ---
RECEIVED IN REPORT THAT REMAINDER OF CHRONULAC ENEMA NEEDED TO BE GIVEN TO PT AFTER 2129. SET UP AND GAVE TO PT WITH ASSISTANCE OF OTHER NURSING STAFF. PRIOR TO ADMINISTRATION OF ENEMA, EMPTIED 450 OF LIQUID BROWN STOOL. ADMINISTERED ENEMA. PT WAS UNABLE TO RETAIN ENEMA FOR 30-60 MINUTES REQUESTED IN ORDER. PT HELD FOR 5 MINUTES BEFORE ENEMA CONTENTS BEGAN TO FILL OSTOMY BAG. ONLY A SMALL AMOUNT OF STOOL WAS NOTED. ADMINISTERED CHRONULAC 60 ML ORDERED. PT TOLERATED AND DID NOT REPORT NAUSEA WHEN/WHILE DRINKING. CALL LIGHT IN REACH. ARIK ALARM ON. YELLOW GOWN ON. PT REFUSES SCD'S.
[2018-03-16] VITALS: BP 119/70
--- NOTE | 2018-03-16 00:57 | NUR ---
PT LYING IN BED, NO SIGNS OF DISTRESS. ALERT AND ORIENTED, DENIES NEEDS. CL IN REACH, ARIK ON. WILL CONTINUE TO MONITOR
[2018-03-16 03:00] VITALS: BP 123/61
[2018-03-16 07:29] LABS: BASOPHILS 0.3 % (0-2); EOSINOPHILS 4.8 % (0-7); HEMATOCRIT 32.9 % (42.0-54.0); HEMOGLOBIN 10.9 g/dL (13.5-17.5); IMMATURE GRANULOCYTES 1.2 % (0-5); LYMPHOCYTES 20.3 % (15-50); MCH 32.6 pg (26.0-34.0); MCHC 33.1 g/dL (31.0-37.0); MCV 98.5 fL (80.0-100.0); MEAN PLATELET VOLUME 8.5 fL (7.4-10.4); MONOCYTES 8.1 % (2-11); NEUTROPHILS 65.3 % (40-80); PLATELET COUNT 106 10x3/uL (130-400); RBC 3.34 10x6/uL (4.20-6.10); RDW 17.6 % (11.5-14.5); WBC 3.4 10x3/uL (4.8-10.8)
--- NOTE | 2018-03-16 07:30 | NUR ---
PT LAYING IN BED RESTING WITH EYES CLOSED THIS AM, AWOKEN EASILY TO VERBAL STIMULI. VOICED THAT HE HAD A GOOD NIGHT. COLOSTOMY NOTED, BAG EMPTY AT THIS TIME. CHRONULAC ENEMA TO BE GIVEN PER DR. PRICE'S ORDERS. RESPIRATIONS EVEN AND UNLABORED, NO S/S OF DISTRESS NOTED. IV INFUSING TO LEFT HAND. DENIES NEEDS AT THIS TIME. BED LOW AND LOCKED, SR UP X2, CL IN EASY REACH. BED ALARM TURNED ON. FALL PRECAUTIONS IN PLACE. WILL CONTINUE TO MONITOR THROUGHOUT THE DAY.
[2018-03-16 07:31] LABS: CALC OSMOLALITY 279 mosm/kg (275-300); CALCIUM 8.6 mg/dL (8.5-10.1); CARBON DIOXIDE 27.5 mmol/L (21.0-32.0); CHLORIDE - SERUM 106 mmol/L (98-107); GLUCOSE 100 mg/dL (74-106); POTASSIUM - SERUM 3.4 mmol/L (3.5-5.1); SODIUM 142 mmol/L (136-145); UREA NITROGEN 4 mg/dL (7-18); eGFR NON AFRICAN AMERICAN 82 mL/min (90-120)
[2018-03-16 09:21] VITALS: BP 142/93
--- NOTE | 2018-03-16 15:33 | NUR ---
ALERT AND ORIENTED WITH IVF INFUSING TO LEFT HAND AT PRESCRIBED RATE. COLOSTOMY INTACT. UP AD LILLIE. DENIES ANY PAIN OR DISCOMFORT AT THIS TIME. ENCOURAGED TO USE CLL LIGHT FOR ASSIST
[2018-03-16 16:56] VITALS: BP 133/87
--- NOTE | 2018-03-16 16:56 | NUR ---
PT LAYING IN BED RESTING WITH EYES CLOSED, AWOKEN EASILY TO VERBAL STIMULI. COLOSTOMY BAG BURPED AND EMPTIED, A TOTAL OF 550CC'S. DENIES FURTHER NEEDS. CL IN EASY REACH.
[2018-03-16 19:00] VITALS: BP 148/85
--- NOTE | 2018-03-16 19:15 | NUR ---
RECEIVED CARE FROM DAY NURSE. LYING IN BED ON LEFT SIDE. REPORTS NO NEEDS AT THIS TIME. CALL LIGHT AT SIDE. IV INFUSING MVI AT 125 PER ORDER.
[2018-03-17] VITALS: BP 155/90
--- NOTE | 2018-03-17 00:21 | NUR ---
PT SCRATCHING BACK WITH FORK. SCRATCHING AT LEGS AND BUTTOCKS WELL. ORDER RECEIVED FOR BENADRYL 25MG IV Q6H PRN ITCHING.
[2018-03-17 03:00] VITALS: BP 132/88
[2018-03-17 06:38] LABS: BASOPHILS 0.8 % (0-2); EOSINOPHILS 4.8 % (0-7); HEMATOCRIT 31.5 % (42.0-54.0); HEMOGLOBIN 10.4 g/dL (13.5-17.5); IMMATURE GRANULOCYTES 0.5 % (0-5); LYMPHOCYTES 22.2 % (15-50); MCH 32.4 pg (26.0-34.0); MCV 98.1 fL (80.0-100.0); MEAN PLATELET VOLUME 8.6 fL (7.4-10.4); MONOCYTES 7.9 % (2-11); NEUTROPHILS 63.8 % (40-80); PLATELET COUNT 100 10x3/uL (130-400); RBC 3.21 10x6/uL (4.20-6.10); RDW 17.5 % (11.5-14.5); WBC 3.8 10x3/uL (4.8-10.8)
[2018-03-17 07:12] LABS: INR 1.85 (0.85-1.17); PROTIME 20.7 SECONDS (11.6-15.0)
[2018-03-17 07:16] LABS: ALBUMIN 2.5 g/dL (3.4-5.0); ANION GAP 13.9 mmol/L (8-16); BILIRUBIN - TOTAL 4.16 mg/dL (0.2-1.3); CALCIUM 8.4 mg/dL (8.5-10.1); CARBON DIOXIDE 24.6 mmol/L (21.0-32.0); CREATININE - SERUM 1.2 mg/dL (0.6-1.3); MAGNESIUM - SERUM 1.6 mg/dL (1.8-2.4); POTASSIUM - SERUM 3.5 mmol/L (3.5-5.1); PROTEIN - SERUM 7.9 g/dL (6.4-8.2)
[2018-03-17 08:25] VITALS: BP 134/86
[2018-03-17 12:26] VITALS: BP 128/87
--- NOTE | 2018-03-17 15:27 | NUR ---
ALERT AND ORIENTED WITH INTERMITTANT CONFUSION NOTED.. COLOSTOMY INTACT WITHOUT ANY ABNORMAL BLEEDING NOTED AT THIS TIME. RESITED IV WITH IVF. ENCOURAGED TO USE CALL LIGHT FOR ASSIST. VERBALIZED UNDERSTANDING
--- NOTE | 2018-03-17 15:57 | NUR ---
IV OBSTRUCTED IN LEFT HAND, ATTEMPTED TO FLUSH, REPOSITION CATHETER, STILL OCCULDED. REMOVED IV. CATHTER TIP IN PLACE. DENIES ANY NEEDS OR DISCOMFORTS, BED LOWERED AND LOCKED, CALL LIGHT WITHIN REACH. CPOC
[2018-03-17 17:23] VITALS: BP 135/87
--- NOTE | 2018-03-17 19:38 | NUR ---
CHANGED COLOSTOMY APPLIANCE, STOMA BEEFY RED, AREA AROUND STOMA HAS SOME DISCOLORATION, BUT BLANCHABLE. STOOL IS LOOSE. YELLOW GREENISH IN COLOR. DENIES ANY NEEDS OR DISCOMFORTS, BED LOWERED AND LOCKED, CALL LIGHT WITHIN EACH. CPOC
[2018-03-17 20:31] VITALS: BP 160/98
--- NOTE | 2018-03-18 01:36 | NUR ---
A/OX4. PT IS SO MUCH BETTER MENTALY SINCE THE LAST I SAW HIM. REQUESTS COLOSTOMY BAG EMPTIED. DENIES OTHER NEEDS. WILL CONTINUE POC.
[2018-03-18 04:47] VITALS: BP 142/82
[2018-03-18 05:31] LABS: BASOPHILS 0.7 % (0-2); EOSINOPHILS 4.3 % (0-7); HEMATOCRIT 31.4 % (42.0-54.0); HEMOGLOBIN 10.5 g/dL (13.5-17.5); IMMATURE GRANULOCYTES 0.7 % (0-5); LYMPHOCYTES 21.8 % (15-50); MCH 32.4 pg (26.0-34.0); MCHC 33.4 g/dL (31.0-37.0); MCV 96.9 fL (80.0-100.0); MEAN PLATELET VOLUME 8.8 fL (7.4-10.4); MONOCYTES 8.6 % (2-11); NEUTROPHILS 63.9 % (40-80); PLATELET COUNT 96 10x3/uL (130-400); RBC 3.24 10x6/uL (4.20-6.10); RDW 17.5 % (11.5-14.5); WBC 4.4 10x3/uL (4.8-10.8)
[2018-03-18 05:57] LABS: ALBUMIN 2.5 g/dL (3.4-5.0); ANION GAP 13.1 mmol/L (8-16); BILIRUBIN - TOTAL 3.89 mg/dL (0.2-1.3); CALCIUM 8.5 mg/dL (8.5-10.1); CARBON DIOXIDE 24.4 mmol/L (21.0-32.0); CREATININE - SERUM 1.1 mg/dL (0.6-1.3); POTASSIUM - SERUM 3.5 mmol/L (3.5-5.1); PROTEIN - SERUM 7.9 g/dL (6.4-8.2)
--- NOTE | 2018-03-18 08:15 | NUR ---
PT RESTING QUIETLY IN BED. NO ACUTE DISTRESS NOTED. REPORTS PAIN 5/10 AT THIS TIME. DILAUDID PORTABLE TRACK CREW CHIEF INTACT AND UTILIZING PER PT REPORT. COLOSTOMY INTACT, STOMA PINK DRAINING BROWNISH, YELLOW STOOL. COLOSTOMY EMPTIED AT THIS TIME. IV TO RIGHT HAND WITH NS @ 75 ML/HR INFUSING VIA PUMP. SITE WITHOUT REDNESS OR EDEMA. DENIES FURTHER NEEDS AT THIS TIME. CL WITHIN REACH. ENCOURAGED TO CALL WITH NEEDS. CONTINUE POC.
[2018-03-18 08:59] VITALS: BP 118/83
--- NOTE | 2018-03-18 10:51 | MORECARE ---
CASE MANAGEMENT DISCHARGE SUMMARY PATIENT: SERGE BOWLES UNIT: [id number] ADM DATE: 03/08/18 AGE: 57 : 60 SEX: M ROOM/BED: D.2231 AUTHOR: KIERA LAURENT PHYSICIAN: REFERRING PHYSICIAN: MARCO COLLADO MD DATE OF SERVICE: 03/18/18 Discharge Plan Patient Name: SERGE BOWLES Facility: [facility]:[place] : 1960 Planned Disposition: Anticipated Discharge Date: Discharge Date: Expected LOS: Initial Reviewer: [email or web address] Initial Review Date: 03/11/2018 Generated: 03/18/18 11:51 am Comments DCP- Discharge Planning Updated by [email or web address]: Suzette Milagros on 03/18/18 9:[address] Met with patient again today and he is unable to give me a phone number for his sister. The numbers [phone] is not a working number and [phone] has been called and message left with no return call. I called [facility] hot line and filed a report that he is unable to return home alone safely, he is unable to make his own decisions and no family has been available. I also called Matilda Tate at [phone] and informed [address] Stevens's evaluation and no family available. CM will continue to follow and assist with discharge planning/needs. DCP- Discharge Planning Updated by [id number]: Suzette Linares on 03/12/18 10:[address] CM met with patient again today concerning discharge planning. States he lives at the [place] [address]. He was able to tell me his sister's name, but states "I don't want to get her involved" when I asked if I could call her. States "my dad was an battery repairer" when I asked again where he lived. Spoke with Dr. Ware's nurse practioner, he may need a psychiatric eval considering his psychiatric history. CM will continue to follow and assist with discharge planning/needs. DCP- Discharge Planning Updated by [email or web address]: Suzetteunique Linares on 03/11/18 1:[address] Patient Name: SERGE BOWLES Admission Status: ER Accout number: [id number] Admission Date: 03-08-2018 : 1960 Admission Diagnosis: Attending: MARCO COLLADO Current LOS: 3 Anticipated DC Date: Planned Disposition: Primary Insurance: MEDICAID [place] Discharge Planning Comments: CM met with patient to discuss discharge planning, he is alone in the room. He is unable to answer many questions appropriately. He does state he has seen Dr. Fagan in the past. When asked where he lived, states "I don't live on the streets." He states he lives in an apartment, but also states he goes to the [facility]. He states he drove himself to the hospital. He has a sister listed as emergency contact. I tried to call her at [phone] with no answer and the message did not sound like she said Kiara. He has Medicaid, so he does not have any rehab benefits. I asked about home health and he states he used to have someone that came every day but he does not have anyone now. Not sure if he is alert enough to answer any questions appropriately. CM will continue to follow and assist with discharge planning/needs. Mechanical Systems Control Engineer: Suzette Linares DCPIA - Discharge Planning Initial Assessment Updated by [email or web address]: Suzette Linares on 03/11/18 2:26 pm * Is the patient Alert and Oriented? No * ADLs Independent * Equipment Ostomy Supplies * List name and contact numbers for known caregivers / representatives who currently or will assist patient after discharge: Kiara Stephanie Cox [phone]? * Additional services required to return to the preadmission environment? Yes * Can the patient safely return to the preadmission environment? No * Has this patient been hospitalized within the prior 30 days at any hospital? No Last DP export: 03/12/18 10:59 a Patient Name: SERGE BOWLES Page [id number] at 1051 All edits/amendments must be made on the electronic document DICTATION DATE: 03/18/18 1050 OBGYN HOSPITALIST PHYSICIAN: TENZIN 03/18/18 1050 RPT#: [id number] DC DATE: STATUS: ADM IN [facility] [address] [place] [address] END OF REPORT
[2018-03-18 12:16] VITALS: BP 177/98
--- NOTE | 2018-03-18 12:33 | NUR ---
NUTRITION F/U PT SLEEPING. TOLERATING REG DIET WITH 100% INTAKE RECENT MEALS. WILL CONTINUE TO PROVIDE DIET, HONOR FOOD PREFERENCES. RD FOLLOWING
[2018-03-18 16:02] VITALS: BP 146/64
--- NOTE | 2018-03-18 20:34 | NUR ---
PATIENT RESTING IN BED AND DENIES NEEDS AT THIS TIME. ADMINISTERED MEDS PER ORDERS. EMPTIED 100 ML FROM PATIENT'S OSTOMY BAG. BED IN LOWEST POSITION AND CALL LIGHT WITHIN REACH. ENCOURAGED THE PATIENT TO CALL IF HE HAS NEEDS. WILL CONTINUE TO MONITOR.
[2018-03-18 20:36] VITALS: BP 134/90
--- NOTE | 2018-03-19 01:24 | NUR ---
ANSWERED CALL LIGHT. A/OX4. PT STATED 10/04 PAIN. GAVE 1MG DILAUDID. PLACED URINAL WITHIN REACH. DENIES OTHER NEEDS. WILL CONTINUE POC.
[2018-03-19 01:58] VITALS: BP 164/84
[2018-03-19 04:12] VITALS: BP 148/74
[2018-03-19 07:24] LABS: BASOPHILS 0.3 % (0-2); EOSINOPHILS 3.6 % (0-7); HEMOGLOBIN 9.7 g/dL (13.5-17.5); IMMATURE GRANULOCYTES 0.3 % (0-5); LYMPHOCYTES 19.4 % (15-50); MCH 32.4 pg (26.0-34.0); MCHC 33.4 g/dL (31.0-37.0); MEAN PLATELET VOLUME 8.8 fL (7.4-10.4); MONOCYTES 9.4 % (2-11); PLATELET COUNT 89 10x3/uL (130-400); RBC 2.99 10x6/uL (4.20-6.10); RDW 17.6 % (11.5-14.5); WBC 3.3 10x3/uL (4.8-10.8)
--- NOTE | 2018-03-19 07:30 | NUR ---
PT RESTING IN BED EYES OPEN. C/O PAIN 09/03, GAVE DILAUDID FOR PAIN. NO S/S OF ACUTE DISTRESS NOTED. CRITICAL AMMONIA LEVEL OF 75 THIS AM. POTASSIUM 3.3, GAVE 40MEQ. HX OF GI ISSUES. HX ETOH ABUSE. IV TO RIGHT THUMB, SITE PATENT WITHOUT REDNESS OR SWELLING. NS INFUSING @ 5ML/HR. PT TAKES LACTULOSE FOR AMMONIA. PT DENIES ANYTHING FURTHER AT THIS TIME. CALL LIGHT IN REACH. WILL CONTINUE TO MONITOR.
[2018-03-19 07:42] LABS: ALBUMIN 2.4 g/dL (3.4-5.0); ALKALINE PHOSPHATASE 89 U/L (46-116); ALT (SGPT) 27 U/L (10-68); BILIRUBIN - TOTAL 4.18 mg/dL (0.2-1.3); CALC OSMOLALITY 275 mosm/kg (275-300); CALCIUM 8.4 mg/dL (8.5-10.1); CHLORIDE - SERUM 106 mmol/L (98-107); GLUCOSE 100 mg/dL (74-106); POTASSIUM - SERUM 3.3 mmol/L (3.5-5.1); PROTEIN - SERUM 7.3 g/dL (6.4-8.2); SODIUM 140 mmol/L (136-145); UREA NITROGEN 5 mg/dL (7-18); eGFR NON AFRICAN AMERICAN 82 mL/min (90-120)
--- NOTE | 2018-03-19 08:22 | MORECARE ---
CASE MANAGEMENT DISCHARGE SUMMARY PATIENT: SERGE BOWLES UNIT: [id number] ADM DATE: 03/08/18 AGE: 57 : 60 SEX: M ROOM/BED: D.2231 AUTHOR: KIERA LAURENT PHYSICIAN: REFERRING PHYSICIAN: MARCO COLLADO MD DATE OF SERVICE: 03/19/18 Discharge Plan Patient Name: SERGE BOWLES Facility: [facility]:[place] : 1960 Planned Disposition: Anticipated Discharge Date: Discharge Date: Expected LOS: Initial Reviewer: [email or web address] Initial Review Date: 03/11/2018 Generated: 03/19/18 9:22 am Comments DCP- Discharge Planning Updated by [email or web address]: Suzette Linares on 03/19/18 7:[address] Met with patient again today and he is unable to give me a phone number for his sister. The numbers [phone] is not a working number and [phone] has been called and message left with no return call. I called [facility] hot line and filed a report that he is unable to return home alone safely, he is unable to make his own decisions and no family has been available. [place] [id number]. I also called Matilda Tate at [phone] and informed [address] of [address] Stevens's evaluation and no family available. CM will continue to follow and assist with discharge planning/needs. DCP- Discharge Planning Updated by [email or web address]: Suzette Linares on 03/12/18 10:[address] CM met with patient again today concerning discharge planning. States he lives at the [place] [address]. He was able to tell me his sister's name, but states "I don't want to get her involved" when I asked if I could call her. States "my dad was an small arms repairer" when I asked again where he lived. Spoke with Dr. Ware's nurse practioner, he may need a psychiatric eval considering his psychiatric history. CM will continue to follow and assist with discharge planning/needs. DCP- Discharge Planning Updated by [id number]: Suzette Linares on 03/11/18 1:[address] Patient Name: SERGE BOWLES Admission Status: ER Accout number: [id number] Admission Date: 03-08-2018 : 1960 Admission Diagnosis: Attending: MARCO COLLADO Current LOS: 3 Anticipated DC Date: Planned Disposition: Primary Insurance: MEDICAID [place] Discharge Planning Comments: CM met with patient to discuss discharge planning, he is alone in the room. He is unable to answer many questions appropriately. He does state he has seen Dr. Fagan in the past. When asked where he lived, states "I don't live on the streets." He states he lives in an apartment, but also states he goes to the [facility]. He states he drove himself to the hospital. He has a sister listed as emergency contact. I tried to call her at [phone] with no answer and the message did not sound like she said Kiara. He has Medicaid, so he does not have any rehab benefits. I asked about home health and he states he used to have someone that came every day but he does not have anyone now. Not sure if he is alert enough to answer any questions appropriately. CM will continue to follow and assist with discharge planning/needs. Revolving Inventory Clerk: Suzette Linares [facility] - Discharge Planning Initial Assessment Updated by [email or web address]: Suzette Linares on 03/11/18 2:26 pm * Is the patient Alert and Oriented? No * ADLs Independent * Equipment Ostomy Supplies * List name and contact numbers for known caregivers / representatives who currently or will assist patient after discharge: [place]ara [place] [phone]? * Additional services required to return to the preadmission environment? Yes * Can the patient safely return to the preadmission environment? No * Has this patient been hospitalized within the prior 30 days at any hospital? No Last DP export: 03/18/18 9:51 a Patient Name: SERGE BOWLES Page 23767 at 0822 All edits/amendments must be made on the electronic document DICTATION DATE: 03/19/18821 ADMISSIONS OFFICER: TENZIN 03/19/18821 RPT#: [id number] DC DATE: STATUS: ADM IN [facility] [address] [place] [address] END OF REPORT
[2018-03-19 08:46] LABS: PLATELET ESTIMATE DECREASED
[2018-03-19 09:16] VITALS: BP 121/54
--- NOTE | 2018-03-19 11:42 | MORECARE ---
CASE MANAGEMENT DISCHARGE SUMMARY PATIENT: SERGE BOWLES UNIT: [id number] ADM DATE: 03/08/18 AGE: 57 : 60 SEX: M ROOM/BED: D.2231 AUTHOR: KIERA LAURENT PHYSICIAN: REFERRING PHYSICIAN: MARCO COLLADO MD DATE OF SERVICE: 03/19/18 Discharge Plan Patient Name: SERGE BOWLES Facility: [facility]:[place] : 1960 Planned Disposition: Anticipated Discharge Date: Discharge Date: Expected LOS: Initial Reviewer: [email or web address] Initial Review Date: 03/11/2018 Generated: 03/19/18 12:42 pm Comments DCP- Discharge Planning Updated by [id number]: Suzette Linares on 03/19/18 10:[address] I met with patient in the room. He is much more alert today. He states is ready to go home. States he has his car here and can drive home. I informed him that he is receiving narcotics and he would need a taxi and when not taking narcotics could have a taxi return him to [facility] for his vehicle. He states he lives in the [address] on [address]. States they used to be called the [facility]. States he has a brother (Christos Morgan) that lives in [place], he does not know his number. States he has several cousins that live in [place] in [facility]. I advised him that he may want to move to be closer to family. I called Matilda Tate and informed her that the physicians may want to discharge him today. She states that he does not have to be in the hospital, they can discharge him and they will follow up with him at home. I informed him that he lives in the [address] on [address]. CM will continue to follow and assist with discharge planning/needs. DCP- Discharge Planning Updated by [id number]: Suzette Milagros on 03/19/18 7:[address] Met with patient again today and he is unable to give me a phone number for his sister. The numbers [phone] is not a working number and [phone] has been called and message left with no return call. I called [facility] hot line and filed a report that he is unable to return home alone safely, he is unable to make his own decisions and no family has been available. [place] [id number]. I also called Matilda Tate at [phone] and informed him of Dr. Stevens's evaluation and no family available. CM will continue to follow and assist with discharge planning/needs. DCP- Discharge Planning Updated by [email or web address]: Suzette Linares on 03/12/18 10:[address] CM met with patient again today concerning discharge planning. States he lives at the holiday apartment. He was able to tell me his sister's name, but states "I don't want to get her involved" when I asked if I could call her. States "my dad was an fiberglass auto body repairer" when I asked again where he lived. Spoke with Dr. Ware's nurse practioner, he may need a psychiatric eval considering his psychiatric history. CM will continue to follow and assist with discharge planning/needs. DCP- Discharge Planning Updated by [id number]: Suzette Linares on 03/11/18 1:[address] Patient Name: SERGE BOWLES Admission Status: ER Accout number: [id number] Admission Date: 03-08-2018 : 1960 Admission Diagnosis: Attending: MARCO COLLADO Current LOS: 3 Anticipated DC Date: Planned Disposition: Primary Insurance: MEDICAID [place] Discharge Planning Comments: CM met with patient to discuss discharge planning, he is alone in the room. He is unable to answer many questions appropriately. He does state he has seen Dr. Fagan in the past. When asked where he lived, states "I don't live on the streets." He states he lives in an apartment, but also states he goes to the [facility] assisted. He states he drove himself to the hospital. He has a sister listed as emergency contact. I tried to call her at [phone] with no answer and the message did not sound like she said Kiara. He has Medicaid, so he does not have any rehab benefits. I asked about home health and he states he used to have someone that came every day but he does not have anyone now. Not sure if he is alert enough to answer any questions appropriately. CM will continue to follow and assist with discharge planning/needs. Aluminum Boat Assembly Supervisor: Suzette Linares DCPIA - Discharge Planning Initial Assessment Updated by [id number]: Suzette Milagros on 03/11/18 2:26 pm * Is the patient Alert and Oriented? No * ADLs Independent * Equipment Ostomy Supplies * List name and contact numbers for known caregivers / representatives who currently or will assist patient after discharge: Kiara Stephanie - [phone]? * Additional services required to return to the preadmission environment? Yes * Can the patient safely return to the preadmission environment? No * Has this patient been hospitalized within the prior 30 days at any hospital? No Last DP export: 03/19/18 7:22 a Patient Name: SERGE BOWLES Page 68203 at 1142 All edits/amendments must be made on the electronic document DICTATION DATE: 03/19/18 1141 SCHOOL COMMUNITY RELATIONS COORDINATOR: TENZIN 03/19/18 1141 RPT#: [id number] DC DATE: STATUS: ADM IN [facility] [address] [place] [address] END OF REPORT
[2018-03-19 12:00] VITALS: BP 126/62
--- NOTE | 2018-03-19 15:34 | NUR ---
SPANISH MEDICAL INTERPRETER NOTES - COLOSTOMY TO LLQ. AMMONIA LEVEL LOWER TODAY, ORAL LACTULOSE GIVEN PER ORDERS, WILL CONTINUE TO MONITOR.
--- NOTE | 2018-03-19 18:36 | NUR ---
PT RESTING IN BED EYES OPEN. NO C/O PAIN. NO S/S OF ACUTE DISTRESS NOTED. PT DENIES ANYTHING FURTHER AT THIS TIME. CALL LIGHT IN REACH. WILL CONTINUE TO MONITOR.
[2018-03-19 20:35] VITALS: BP 124/82
[2018-03-20 00:46] VITALS: BP 130/85
--- NOTE | 2018-03-20 01:10 | NUR ---
A/OX4. PT REQUESTS HIS PAIN MEDS Q TIME AVAILABLE. BREATHING EVEN AND UNLABORED. DENIES OTHER NEEDS. WILL CONTINUE POC.
[2018-03-20 04:57] VITALS: BP 125/76
[2018-03-20 06:54] LABS: BASOPHILS 0.3 % (0-2); EOSINOPHILS 4.6 % (0-7); HEMATOCRIT 28.7 % (42.0-54.0); HEMOGLOBIN 9.5 g/dL (13.5-17.5); IMMATURE GRANULOCYTES 0.3 % (0-5); LYMPHOCYTES 20.8 % (15-50); MCH 32.5 pg (26.0-34.0); MCHC 33.1 g/dL (31.0-37.0); MCV 98.3 fL (80.0-100.0); MEAN PLATELET VOLUME 9.3 fL (7.4-10.4); MONOCYTES 7.1 % (2-11); NEUTROPHILS 66.9 % (40-80); PLATELET COUNT 95 10x3/uL (130-400); RBC 2.92 10x6/uL (4.20-6.10); RDW 17.5 % (11.5-14.5); WBC 3.5 10x3/uL (4.8-10.8)
[2018-03-20 07:15] LABS: ALBUMIN 2.3 g/dL (3.4-5.0); ALKALINE PHOSPHATASE 101 U/L (46-116); ALT (SGPT) 26 U/L (10-68); BILIRUBIN - TOTAL 3.74 mg/dL (0.2-1.3); CALC OSMOLALITY 275 mosm/kg (275-300); CALCIUM 7.9 mg/dL (8.5-10.1); CARBON DIOXIDE 23.1 mmol/L (21.0-32.0); CHLORIDE - SERUM 107 mmol/L (98-107); GLUCOSE 93 mg/dL (74-106); POTASSIUM - SERUM 3.3 mmol/L (3.5-5.1); PROTEIN - SERUM 7.2 g/dL (6.4-8.2); SODIUM 140 mmol/L (136-145); UREA NITROGEN 4 mg/dL (7-18); eGFR NON AFRICAN AMERICAN 82 mL/min (90-120)
--- NOTE | 2018-03-20 08:21 | NUR ---
PT RESTING IN BED WITH EYES OPEN. RESPIRATIONS ARE EVEN AND UNLABORED. PT REPORTS PAIN IN ABDOMEN 4/10. PT DENIES NEEDS FOR PAIN MANAGEMENT AT THIS TIME. PT IS ALERT AND ORIENTED X 4. PT SPEECH IS SLIGHTLY SLURRED, BUT IS EASILY UNDERSTOOD. PT REFUSES SCDS. BED IS IN THE LOWEST POSITION. CALL LIGHT AND BEDSIDE TABLE ARE WITHIN REACH. WILL CONT TO MONITOR.
[2018-03-20 08:57] VITALS: BP 129/81
--- NOTE | 2018-03-20 11:18 | MORECARE ---
CASE MANAGEMENT DISCHARGE SUMMARY PATIENT: SERGE BOWLES UNIT: [id number] ADM DATE: 03/08/18 AGE: 57 : 60 SEX: M ROOM/BED: D.2231 AUTHOR: KIERA LAURENT PHYSICIAN: REFERRING PHYSICIAN: MARCO COLLADO MD DATE OF SERVICE: 03/20/18 Discharge Plan Patient Name: SERGE BOWLES Facility: [facility]:[place] : 1960 Planned Disposition: Anticipated Discharge Date: Discharge Date: Expected LOS: Initial Reviewer: [email or web address] Initial Review Date: 03/11/2018 Generated: 03/20/18 12:18 pm Comments DCP- Discharge Planning Updated by [email or web address]: Suzette Milagors on 03/20/18 10:[address] I called [facility] and spoke to Shannan, she verified that the consult was faxed to [facility] for Dr. Stevens yesterday. CM will continue to follow and assist with discharge planning/needs. DCP- Discharge Planning Updated by [email or web address]: Suzette Bendertoya on 03/19/18 10:[address] I met with patient in the room. He is much more alert today. He states is ready to go home. States he has his car here and can drive home. I informed him that he is receiving narcotics and he would need a taxi and when not taking narcotics could have a taxi return him to [facility] for his vehicle. He states he lives in the Holiday apartments on [address]. States they [facility]. States he has a brother (Christos Morgan) that lives in [place] [facility], he does not know his number. States he has several cousins that live in [place] in [facility]. I advised him that he may want to move to be closer to family. I called Matilda Tate and informed her that the physicians may want to discharge him today. She states that he does not have to be in the hospital, they can discharge him and they will follow up with him at home. I informed him that he lives in the [address] apartments on [address]. CM will continue to follow and assist with discharge planning/needs. DCP- Discharge Planning Updated by [email or web address]: Suzette Linares on 03/19/18 7:[address] Met with patient again today and he is unable to give me a phone number for his sister. The numbers [phone] is not a working number and [phone] has been called and message left with no return call. I called [facility] hot line and filed a report that he is unable to return home alone safely, he is unable to make his own decisions and no family has been [place]. [place] [id number]. I also called Matilda Tate at [phone] and informed him of Dr. Stevens's evaluation and no family available. CM will continue to follow and assist with discharge planning/needs. DCP- Discharge Planning Updated by [id number]: Suzette Linares on 03/12/18 10:[address] CM met with patient again today concerning discharge planning. States he lives at the holiday apartment. He was able to tell me his sister's name, but states "I don't want to get her involved" when I asked if I could call her. States "my dad was an photogrammetry airplane pilot" when I asked again where he lived. Spoke with Dr. Ware's nurse practioner, he may need a psychiatric eval considering his psychiatric history. CM will continue to follow and assist with discharge planning/needs. DCP- Discharge Planning Updated by [email or web address]: Suzette Linares on 03/11/18 1:[address] Patient Name: SERGE BOWLES Admission Status: ER Accout number: [id number] Admission Date: 03-08-2018 : 1960 Admission Diagnosis: Attending: MARCO COLLADO Current LOS: 3 Anticipated DC Date: Planned Disposition: Primary Insurance: MEDICAID [place] Discharge Planning Comments: CM met with patient to discuss discharge planning, he is alone in the room. He is unable to answer many questions appropriately. He does state he has seen Dr. Fagan in the past. When asked where he lived, states "I don't live on the streets." He states he lives in an apartment, but also states [facility] goes [facility]. He states he drove himself to the hospital. He has a sister listed as emergency contact. I tried to call her at [phone] with no answer and the message did not sound like she said Kiara. He has Medicaid, so he does not have any rehab benefits. I asked about home health and he states he used to have someone that came every day but he does not have anyone now. Not sure if he is alert enough to answer any questions appropriately. CM will continue to follow and assist with discharge planning/needs. Livestock Haulier: Suzette Linares DCPIA - Discharge Planning Initial Assessment Updated by [email or web address]: Suzette Linares on 03/11/18 2:26 pm * Is the patient Alert and Oriented? No * ADLs Independent * Equipment Ostomy Supplies * List name and contact numbers for known caregivers / representatives who currently or will assist patient after discharge: Kiara Arriola-[phone]? * Additional services required to return to the preadmission environment? Yes * Can the patient safely return to the preadmission environment? No * Has this patient been hospitalized within the prior 30 days at any hospital? No Last DP export: 03/19/18 10:42 a Patient Name: SERGE BOWLES Page [id number] at 1118 All edits/amendments must be made on the electronic document DICTATION DATE: 03/20/181116 FOSTER CARE WORKER: TENZIN 03/20/181116 RPT#: [id number] DC DATE: STATUS: ADM IN [facility] [address] [place] [address] END OF REPORT
--- NOTE | 2018-03-20 12:03 | MORECARE ---
CASE MANAGEMENT DISCHARGE SUMMARY PATIENT: SERGE BOWLES UNIT: [id number] ADM DATE: 03/08/18 AGE: 57 : 60 SEX: M ROOM/BED: D.2231 AUTHOR: KIERA LAURENT PHYSICIAN: REFERRING PHYSICIAN: MARCO COLLADO MD DATE OF SERVICE: 03/20/18 Discharge Plan Patient Name: SERGE BOWLES Facility: [facility]:[place] : 1960 Planned Disposition: Anticipated Discharge Date: Discharge Date: Expected LOS: Initial Reviewer: [email or web address] Initial Review Date: 03/11/2018 Generated: 03/20/18 1:03 pm Comments DCP- Discharge Planning Updated by [email or web address]: Suzette Milagros on 03/20/18 10:[address] [facility] and spoke to Shannan, she verified that the consult was faxed to [facility] for [facility]. Stevens yesterday. CM will continue to follow and assist with discharge planning/needs. DCP- Discharge Planning Updated by [email or web address]: Suzette Bendertoya on 03/19/18 10:[address] I met with patient in the room. He is much more alert today. He states is ready to go home. States he has his car here and can drive home. I informed him that he is receiving narcotics and he would need a taxi and when not taking narcotics could have a taxi return him to [facility] for his vehicle. He states he lives in the [address] apartments on [address]. States they [facility] to [facility]. States he has a brother (Christos Morgan) that lives in [place], he does not know his number. States he has several cousins that live in [place] in [facility]. I advised him that he may want to move to be closer to family. I called Matilda Tate and informed her that the physicians may want to discharge him today. She states that he does not have to be in the hospital, they can discharge him and they will follow up with him at home. I informed him that he lives in the [address] apartments on [address]. CM will continue to follow and assist with discharge planning/needs. DCP- Discharge Planning Updated by [email or web address]: Suzette Linares on 03/19/18 7:[address] Met with patient again today and he is unable to give me a phone number for his sister. The numbers [phone] is not a working number and [phone] has been called and message left with no return call. I called [facility] hot line and filed a report that he is unable to return home alone safely, he is unable to make his own decisions and no family has been [place]. [place] [id number]. I also called Matilda Tate at [phone] and informed [address] of Dr. Stevens's evaluation and no family available. CM will continue to follow and assist with discharge planning/needs. DCP- Discharge Planning Updated by [id number]: Suzette Linares on 03/12/18 10:[address] CM met with patient again today concerning discharge planning. States he lives at the holiday apartment. He was able to tell me his sister's name, but states "I don't want to get her involved" when I asked if I could call her. States "my dad was an street light repairer helper" when I asked again where he lived. Spoke with Dr. Ware's nurse practioner, he may need a psychiatric eval considering his psychiatric history. CM will continue to follow and assist with discharge planning/needs. DCP- Discharge Planning Updated by [id number]: Suzette Linares on 03/11/18 1:[address] Patient Name: SERGE BOWLES Admission Status: ER Accout number: [id number] Admission Date: 03-08-2018 : 1960 Admission Diagnosis: Attending: MARCO COLLADO Current LOS: 3 Anticipated DC Date: Planned Disposition: Primary Insurance: MEDICAID [place] Discharge Planning Comments: CM met with patient to discuss discharge planning, he is alone in the room. He is unable to answer many questions appropriately. He does state he has seen Dr. Fagan in the past. When asked where he lived, states "I don't live on the streets." He states he lives in an apartment, but also states he goes to the [facility]. He states he drove himself to the hospital. He has a sister listed as emergency contact. I tried to call her at [phone] with no answer and the message did not sound like she said Kiara. He has Medicaid, so he does not have any rehab benefits. I asked about home health and he states he used to have someone that came every day but he does not have anyone now. Not sure if he is alert enough to answer any questions appropriately. CM will continue to follow and assist with discharge planning/needs. Brazing Machine Operator Helper: Suzette Linares DCPIA - Discharge Planning Initial Assessment Updated by [id number]: Suzette Linares on 03/11/18 2:26 pm * Is the patient Alert and Oriented? No * ADLs Independent * Equipment Ostomy Supplies * List name and contact numbers for known caregivers / representatives who currently or will assist patient after discharge: Kiara Arriola-[phone]? * Additional services required to return to the preadmission environment? Yes * Can the patient safely return to the preadmission environment? No * Has this patient been hospitalized within the prior 30 days at any hospital? No Last DP export: 03/20/18 10:18 a Patient Name: SERGE BOWLES Page 87234 at 1203 All edits/amendments must be made on the electronic document DICTATION DATE: 03/20/181202 CONCHE OPERATOR: TENZIN 03/20/181202 RPT#: [id number] DC DATE: STATUS: ADM IN [facility] [address] [place] [address] END OF REPORT
[2018-03-20 13:03] VITALS: BP 142/87
--- NOTE | 2018-03-20 15:10 | NUR ---
PT SITTING IN BED WITH EYES OPEN. RESPIRATIONS ARE EVEN AND UNLABORED. RIGHT THUMB PIV IS LEAKING. RIGHT THUMB PIV REMOVED WITH CATHETER TIP INTACT. PT DOES NOT WISH TO HAVE ANOTHER PIV STARTED AT THIS TIME. PT WOULD LIKE TO SEE ABOUT DISCHARGE PRIOR TO ATTEMPTING NEW PIV.
--- NOTE | 2018-03-20 16:35 | MORECARE ---
CASE MANAGEMENT DISCHARGE SUMMARY PATIENT: SERGE BOWLES UNIT: [id number] ADM DATE: 03/08/18 AGE: 57 : 60 SEX: M ROOM/BED: D.2231 AUTHOR: KIERA LAURENT PHYSICIAN: REFERRING PHYSICIAN: MARCO COLLADO MD DATE OF SERVICE: 03/20/18 Discharge Plan Patient Name: SERGE BOWLES Facility: [facility]:[place] : 1960 Planned Disposition: Anticipated Discharge Date: Discharge Date: Expected LOS: Initial Reviewer: [email or web address] Initial Review Date: 03/11/2018 Generated: 03/20/18 5:35 pm Comments DCP- Discharge Planning Updated by [email or web address]: Suzette Linares on 03/20/18 3:[address] I called Dot in sampler and test preparer and asked her to have Dr. Stevens's consult transcribed STAT, Dr. Ridley is awaiting report for discharge on patient tonight. If he is discharged he will need a taxi ride home. Nurse to call taxi at [phone] and [facility] [address]. Patient refuses home health services. CM will continue to follow and assist with discharge planning/needs. DCP- Discharge Planning Updated by [id number]: Suzette Linares on 03/20/18 10:[address] I called [facility] and spoke to Shannan, she verified that the [facility] Stevens [facility]. CM will continue to follow and assist with discharge planning/needs. DCP- Discharge Planning Updated by [id number]: Suzette Linares on 03/19/18 10:[address] I met with patient in the room. He is much more alert today. He states is ready to go home. States he has his car here and can drive home. I informed him that he is receiving narcotics and he would need a taxi and when not taking narcotics could have a taxi return him to [facility] his vehicle. He states [facility] [address]. States they used to be called the [facility]. States he has a brother (Christos Morgan) that lives in [place], he does not know his number. States he has several cousins that live in [place] in [facility]. I advised him that he may want to move to be closer to family. I called Matilda yLnnch and informed her that the physicians may want to discharge him today. She states that he does not have to be in the hospital, they can discharge him and they will follow up with him at home. I informed him that he lives in the [address] apartments on [address]. CM will continue to follow and assist with discharge planning/needs. DCP- Discharge Planning Updated by [email or web address]: Suzette Milagros on 03/19/18 7:[address] Met with patient again today and he is unable to give me a phone number for his sister. The numbers [phone] is not a working number and [phone] has been called and message left with no return call. I called [facility] hot line and filed a report that he is unable to return home alone safely, he is unable to make his own decisions and no family has been available. [place] [id number]. I also called Matilda Lea at [phone] and [address] Stevens's evaluation and no family available. CM will continue to follow and assist with discharge planning/needs. DCP- Discharge Planning Updated by [id number]: Suzette Milagros on 03/12/18 10:[address] CM met with patient again today concerning discharge planning. [facility] He was able to tell me his sister's name, but states "I don't want to get her involved" when I asked if I could call her. States "my dad was an interior design program chair" when I asked again where he lived. Spoke with Dr. Ware's nurse practioner, he may need a psychiatric eval considering his psychiatric history. CM will continue to follow and assist with discharge planning/needs. DCP- Discharge Planning Updated by [email or web address]: Suzette Linares on 03/11/18 1:[address] Patient Name: SERGE BOWLES Admission Status: ER Accout number: [id number] Admission Date: 03-08-2018 : 1960 Admission Diagnosis: Attending: MARCO COLLADO Current LOS: 3 Anticipated DC Date: Planned Disposition: Primary Insurance: MEDICAID [place] Discharge Planning Comments: CM met with patient to discuss discharge planning, he is alone in the room. He is unable to answer many questions appropriately. He does state he has seen Dr. Fagan in the past. When asked where he lived, states "I don't live on the streets." He states he lives in an apartment, but also states he goes [facility] the [facility]. He states he drove himself to the hospital. He has a sister listed as emergency contact. I tried to call her at [phone] with no answer and the message did not sound like she said Kiara. He has Medicaid, so he does not have any rehab benefits. I asked about home health and he states he used to have someone that came every day but he does not have anyone now. Not sure if he is alert enough to answer any questions appropriately. CM will continue to follow and assist with discharge planning/needs. Inspector Bullet Slugs: Suzette Linares DCA - Discharge Planning Initial Assessment Updated by [id number]: Suzette Linares on 03/11/18 2:26 pm * Is the patient Alert and Oriented? No * ADLs Independent * Equipment Ostomy Supplies * List name and contact numbers for known caregivers / representatives who currently or will assist patient after discharge: Kiara [phone]? * Additional services required to return to the preadmission environment? Yes * Can the patient safely return to the preadmission environment? No * Has this patient been hospitalized within the prior 30 days at any hospital? No Last DP export: 03/20/18 11:03 a Patient Name: SERGE BOWLES Page 34691 at 9872 All edits/amendments must be made on the electronic document DICTATION DATE: 03/20/181634 BROWNELL OPERATOR: TENZIN 03/20/18 1635 RPT#: [id number] DC DATE: STATUS: ADM IN [facility] [address] [place] [address] END OF REPORT
--- NOTE | 2018-03-20 17:09 | MORECARE ---
CASE MANAGEMENT DISCHARGE SUMMARY PATIENT: SERGE BOWLES UNIT: [id number] ADM DATE: 03/08/18 AGE: 57 : 60 SEX: M ROOM/BED: D.2231 AUTHOR: KIERA LAURENT PHYSICIAN: REFERRING PHYSICIAN: MARCO COLLADO MD DATE OF SERVICE: 03/20/18 Discharge Plan Patient Name: SERGE BOWLES Facility: [facility]:[place] : 1960 Planned Disposition: Anticipated Discharge Date: Discharge Date: Expected LOS: Initial Reviewer: [email or web address] Initial Review Date: 03/11/2018 Generated: 03/20/18 6:09 pm Comments DCP- Discharge Planning Updated by [email or web address]: Suzette Linares on 03/20/18 4:[address] I notified Allison that Dr. Stevens's note was in the computer. Patient is up in the room getting ready for discharge. I gave him information on "Alcohol use and your health" and also local Alcohol abuse programs. He states he goes monthly to [place] and knows how to call them if needed for inpatient rehab. He declines home health. He is in agreement to taking a taxi home. I have given Jonna the information to have him go to his apartment on [address] and case management to pay the tab. CM will continue to follow and assist with discharge plan. DCP- Discharge Planning Updated by [id number]: Suzette Linares on 03/20/18 3:[address] I called Dot in plant controller and asked her to have Dr. Stevens's consult transcribed STAT, Dr. Ridley is awaiting report for discharge on patient tonight. If he is discharged he will need a taxi ride home. Nurse to call taxi at [phone] and have it put on case management tab to [facility] [address] on [address]. Patient refuses home health services. CM will continue to follow and assist with discharge planning/needs. DCP- Discharge Planning Updated by [email or web address]: Suzette Linares on 03/20/18 10:[address] I called [facility] and spoke to Shannan, she verified that the consult was faxed to [facility] for Dr. Stevens yesterday. CM will continue to follow and assist with discharge planning/needs. DCP- Discharge Planning Updated by [id number]: Suzette Linares on 03/19/18 10:[address] I met with patient in the room. He is much more alert today. He states is ready to go home. States he has his car here and can drive home. I informed him that he is receiving narcotics and he would need a taxi and when not taking narcotics could have a taxi return him to [facility] for his vehicle. He states he lives in the [address] on [address]. States they used to be called the [facility]. States he has a brother (Christos Morgan) that lives in [facility], he does not know his number. States he has several cousins that live in [place] in [facility]. I advised him that he may want to move to be closer to family. I called Matilda Tate and informed her that the physicians may want to discharge him today. She states that he does not have to be in the hospital, they can discharge him and they will follow up with him at home. I informed him that he lives in the [address] on [address]. CM will continue to follow and assist with discharge planning/needs. DCP- Discharge Planning Updated by [email or web address]: Suzette Linares on 03/19/18 7:[address] Met with patient again today and he is unable to give me a phone number for his sister. The numbers [phone] is not a working number and [phone] has been called and message left with no return call. I called [facility] hot line and filed a report that he is unable to return home alone safely, he is unable to make his own decisions and no family has been available. [place] [id number]. I also called Matilda Tate at [phone]. Stevens's evaluation and no family available. CM will continue to follow and assist with discharge planning/needs. DCP- Discharge Planning Updated by [email or web address]: Suzette Linares on 03/12/18 10:[address] CM met with patient again today concerning discharge planning. States he lives at the holiday apartment. He was able to tell me his sister's name, but states "I don't want to get her involved" when I asked if I could call her. States "my dad was an air moving technician" when I asked again where he lived. Spoke with Dr. Ware's nurse practioner, he may need a psychiatric eval considering his psychiatric history. CM will continue to follow and assist with discharge planning/needs. DCP- Discharge Planning Updated by [email or web address]: Suzette Milagros on 03/11/18 1:[address] Patient Name: SERGE BOWLES Admission Status: ER Accout number: [id number] Admission Date: 03-08-2018 : 1960 Admission Diagnosis: Attending: MARCO COLLADO Current LOS: 3 Anticipated DC Date: Planned Disposition: Primary Insurance: MEDICAID [place] Discharge Planning Comments: CM met with patient to discuss discharge planning, he is alone in the room. He is unable to answer many questions appropriately. He does state he has seen Dr. Fagan in the past. When asked where he lived, states "I don't live on the streets." He states he lives in an apartment, but also states he goes to the [facility]. He states he drove himself to the hospital. He has a sister listed as emergency contact. I tried to call her at [phone] with no answer and the message did not sound like she said Kiara. He has Medicaid, so he does not have any rehab benefits. I asked about home health and he states he used to have someone that came every day but he does not have anyone now. Not sure if he is alert enough to answer any questions appropriately. CM will continue to follow and assist with discharge planning/needs. Senior Unix Administrator: Suzette Milagros DCPIA - Discharge Planning Initial Assessment Updated by [email or web address]: Suzette Bendertoya on 03/11/18 2:26 pm * Is the patient Alert and Oriented? No * ADLs Independent * Equipment Ostomy Supplies * List name and contact numbers for known caregivers / representatives who currently or will assist patient after discharge: Kiara Brown - [phone]? * Additional services required to return to the preadmission environment? Yes * Can the patient safely return to the preadmission environment? No * Has this patient been hospitalized within the prior 30 days at any hospital? No Last DP export: 03/20/18 3:35 p Patient Name: SERGE BOWLES Page 32209 at 1709 All edits/amendments must be made on the electronic document DICTATION DATE: 03/20/181707 SECURITY GUARD: TENZIN 03/20/181707 RPT#: [id number] DC DATE: STATUS: ADM IN [facility] [address] [place] [address] END OF REPORT
[2018-03-20 17:26] VITALS: BP 122/75
--- NOTE | 2018-03-20 17:41 | NUR ---
ATTEMPT MADE TO COVER DISCHARGE INSTRUCTIONS WITH PT. PT IS NOT IN ROOM AND IS NOT FOUND IN HALLWAY. UNABLE TO GIVE DISCHARGE INSTRUCTIONS AT THIS TIME.
--- NOTE | 2018-03-20 17:58 | NUR ---
PT IS STILL UNAVAILABLE TO COVER DISCHARGE INSTRUCTIONS. UNSIGNED DISCHARGE INSTRUCTIONS PLACED IN CHART.
--- NOTE | 2018-03-21 10:24 | MORECARE ---
CASE MANAGEMENT DISCHARGE SUMMARY PATIENT: SERGE BOWLES UNIT: [id number] ADM DATE: 03/08/18 AGE: 57 : 60 SEX: M ROOM/BED: D.2231 AUTHOR: KIERA LAURENT PHYSICIAN: REFERRING PHYSICIAN: MARCO COLLADO MD DATE OF SERVICE: 03/21/18 Discharge Plan Patient Name: SERGE BOWLES Facility: [facility]:[place] : 1960 Planned Disposition: Home Anticipated Discharge Date: Discharge Date: 03/20/2018 Expected LOS: 0 Initial Reviewer: [id number] Initial Review Date: 03/11/2018 Generated: 03/21/18 11:24 am Comments DCP- Discharge Planning Updated by [id number]: Suzette Linares on 03/20/18 4:[address] I notified Allison that Dr. Stevens's note was in the computer. Patient is up in the room getting ready for discharge. I gave him information on "Alcohol use and your health" and also local Alcohol abuse programs. He states he goes monthly to [place] and knows how to call them if needed for inpatient rehab. He declines home health. He is in agreement to taking a taxi home. I have given Jonna the information to have him go to his apartment on [address] and case management to pay the tab. CM will continue to follow and assist with discharge plan. DCP- Discharge Planning Updated by [email or web address]: Suzette Linares on 03/20/18 3:[address] I called Dot in etymology professor and asked her to have Dr. Stevens's consult transcribed STAT, Dr. Ridley is awaiting report for discharge on patient tonight. If he is discharged he will need a taxi ride home. Nurse to call taxi at [phone] and have it put on case management tab to [facility] on [address]. Patient refuses home health services. CM will continue to follow and assist with discharge planning/needs. DCP- Discharge Planning Updated by [email or web address]: Suzette Linares on 03/20/18 10:[address] I called [facility] and spoke to Shannan, she verified that the consult was faxed to [facility] for Dr. Stevens yesterday. CM will continue to follow and assist with discharge planning/needs. DCP- Discharge Planning Updated by [email or web address]: Suzette Linares on 03/19/18 10:[address] I met with patient in the room. He is much more alert today. He states is ready to go home. States he has his car here and can drive home. I informed him that he is receiving narcotics and he would need a taxi and when not taking narcotics could have a taxi return him to [facility] for his vehicle. He states he lives in the [facility] [address] on [address]. States they used to be called the [facility]. States he has a brother (Christos Morgan) that lives in [facility], he does not know his number. States he has several cousins that live in [place] in [facility]. I advised him that he may want to move to be closer to family. I called Matilda Tate and informed her that the physicians may want to discharge him today. She states that he does not have to be in the hospital, they can discharge him and they will follow up with him at home. I informed him that he lives in the [address] on [address]. CM will continue to follow and assist with discharge planning/needs. DCP- Discharge Planning Updated by [email or web address]: Suzette Linares on 03/19/18 7:[address] Met with patient again today and he is unable to give me a phone number for his sister. The numbers [phone] is not a working number and [phone] has been called and message left with no return call. I called [facility] hot line and filed a report that he is unable to return home alone safely, he is unable to make his own decisions and no family has been [place]. [place] [id number]. I also called Matilda Tate at [phone] and informed him of Dr. Stevens's evaluation and no family available. CM will continue to follow and assist with discharge planning/needs. DCP- Discharge Planning Updated by [email or web address]: Szuette Linares on 03/12/18 10:[address] CM met with patient again today concerning discharge planning. States he lives at the holiday apartment. He was able to tell me his sister's name, but states "I don't want to get her involved" when I asked if I could call her. States "my dad was an rail car repairer" when I asked again where he lived. Spoke with Dr. Ware's nurse practioner, he may need a psychiatric eval considering his psychiatric history. CM will continue to follow and assist with discharge planning/needs. DCP- Discharge Planning Updated by [email or web address]: Suzette Milagros on 03/11/18 1:[address] Patient Name: SERGE BOWLES Admission Status: ER Accout number: [id number] Admission Date: 03-08-2018 : 1960 Admission Diagnosis: Attending: MARCO COLLADO Current LOS: 3 Anticipated DC Date: Planned Disposition: Primary Insurance: MEDICAID [place] Discharge Planning Comments: CM met with patient to discuss discharge planning, he is alone in the room. He is unable to answer many questions appropriately. He does state he has seen Dr. Fagan in the past. When asked where he lived, states "I don't live on the streets." He states he lives in an apartment, but also states he goes to the [facility]. He states he drove himself to the hospital. He has a sister listed as emergency contact. I tried to call her at [phone] with no answer and the message did not sound like she said Kiara. He has Medicaid, so he does not have any rehab benefits. I asked about home health and he states he used to have someone that came every day but he does not have anyone now. Not sure if he is alert enough to answer any questions appropriately. CM will continue to follow and assist with discharge planning/needs. Sheep Killer: Suzette Linares DCPIA - Discharge Planning Initial Assessment Updated by [id number]: Suzette Milagros on 03/11/18 2:26 pm * Is the patient Alert and Oriented? No * ADLs Independent * Equipment Ostomy Supplies * List name and contact numbers for known caregivers / representatives who currently or will assist patient after discharge: Kiara Brown - [phone]? * Additional services required to return to the preadmission environment? Yes * Can the patient safely return to the preadmission environment? No * Has this patient been hospitalized within the prior 30 days at any hospital? No Last DP export: 03/20/18 4:09 p Patient Name: SERGE BOWLES Page 13343 at 1024 All edits/amendments must be made on the electronic document DICTATION DATE: 03/21/18 1024 ACCOUNT MANAGER EMPLOYEE BENEFITS: TENZIN 03/21/18 1024 RPT#: [id number] DC DATE:03/20/18 STATUS: DIS IN [facility] [address] [place] [address] END OF REPORT
--- NOTE | 2018-03-21 15:16 | PN ---
PATIENT:SERGE BOWLES MEDICAL RECORD: [id number] LOCATION:[facility] [address] ADMISSION DATE: 03/08/18 PROGRESS NOTE DATE OF SERVICE: 03/20/2018 SUBJECTIVE: The patient's case was discussed with staff. He has no new complaint. OBJECTIVE: The patient is oriented to person, place, time, and situation. His mood is euthymic. His affect is appropriate. Thought processes are goal directed and he has mild impairment of his memory, concentration, and abstraction abilities. He denies intent to harm himself or others. He denies overt psychotic symptoms. ASSESSMENT: 1. Delirium, resolved. 2. Bipolar disorder by history. PLAN: At this time, the patient is no longer delirious. He is cognitively oriented to a reasonable degree. He is capable of making reasonable informed consent decisions; even though he may not make a good decision, there is nothing intrinsically present in his mental status at this time that says he cannot make good decisions. He does not want to go to a senior care. He wants to return to the hotel with a kitchenette where he says he can care for himself and will not drink. Given his debilitated state, I think that that is questionable. Given his history with the alcohol abuse, I think that is something that is going to be difficult. Nevertheless, as long as he maintains this level of cognitive awareness, he is capable of making good decisions and should be allowed to go home to the hotel with the kitchenette and I would refer him to or make a report to adult protective services so that they can do a welfare check. His long-term prognosis will be contingent upon abstinence from alcohol, following up with both mental health and his medical doctors. TRANSINT:[id number] Voice Confirmation ID: [id number] DOCUMENT ID: [id number] MARYJO VASQUEZ MD at 1516 CC: [id number] DICTATION DATE: 03/20/18 1545 COVER CREASER: 03/20/18 1651 DIS IN 03/20/18 [facility] [address] [place] [address]
== END 2018-03-20 18:00 | disposition home or self-care (01) | DRG 378 ==
LOC: D.ER 02:03 → D.EDHOLD 03:51 → D.MS 03:51
PROVIDERS: Emergency Medicine; Family Medicine; Internal Medicine Gastroenterology; Internal Medicine Nephrology; ADMIT Family Medicine
PROC: 0DJ08ZZ Inspection of Upper Intestinal Tract, Via Natural or Artificial Opening Endoscopic (ICD-10-PCS; principal; 2018-03-10 08:20)
DX: K92.2 Gastrointestinal hemorrhage, unspecified (principal); D62 Acute posthemorrhagic anemia; K22.10 Ulcer of esophagus without bleeding; K72.90 Hepatic failure, unspecified without coma; I25.10 Atherosclerotic heart disease of native coronary artery without angina pectoris; F20.9 Schizophrenia, unspecified; F32.9 Major depressive disorder, single episode, unspecified

== ENCOUNTER 2018-04-13 12:56 | Inpatient (IN) | payer MEDICAID ==
[~2018-04-13] VITALS: Ht 188 cm; Wt 100.2 kg
--- NOTE | ~2018-04-13 | HEMODYNAMI ---
PATIENT:SERGE BOWLES MEDICAL RECORD: [id number] : 60 [id number] ADMISSION DATE: 04/13/18 Generatedon:04/17/201816:20 Patient name: SERGE BOWLES Patient #: [id number] SSN: : 1960 Date of study: 04/17/2018 Page: Of Hemodynamic Procedure Report Patient Data Patient Demographics Procedure consent was obtained First Name: SERGE Gender: Male Last Name: WILBUR : 1960 Middle Initial: D Age: 57 year(s) Patient #: [id number] Race: Additional ID: [id number] Contact details Address: [address] [place] [address] State: [place] [facility] [place] code: [address] Past Medical History Allergies: No known allergies Admission Admission Data Admission Date: 04/13/2018 Admission Time: 20:55 Room #: D.2315 Height (in.): 74 BSA: 2.3 (m2) Height (cm.): 187.96 BMI: 29.4 (kg/m2) Weight (lbs.): 229 Weight (kg.): 103.87 Procedure Procedure Types Cath Procedure Peripheral Cath Diagnostic Procedure Combatant Swimmer Peripheral Procedures Liver Hepatic Venagram Procedure Description Procedure Date Procedure Date: 04/17/2018 Procedure Start Time: 14:18 Procedure Staff Name Function Christos Thomason MD Performing Physician Imani Buck RT Spray Mixer Charity Burrell RN Nurse Jackson Solano RT Scrub Jose Manuel Viera MD Additional personnel Rachel Johnson MD Performing Physician Procedure Data Cath Procedure Fluoroscopy Diagnostic fluoroscopy Total fluoroscopy Time: time: 14.8 min 14.8 min Diagnostic fluoroscopy Total fluoroscopy dose: dose: 3232 mGy 3232 mGy Contrast Material Contrast Material Type Amount (ml) Isovue 300 110 Procedure Medications Medication Administration Route Dosage Heparin Flush Bag added to field 3 bags (1000units/500ml NS) Lidocaine 1% added to field 20 Hemodynamics Rest BSA: 2.3 (m2) O2 Consumption: Estimated: 282.22 (ml/min) O2 Consumption indexed: Estimated:122.7 (ml/min/m) Heart Rate: 82 (bpm) Snapshots Pre Cath Intra NCS Post Cath Vital Signs Time Heart Resp etCO2 NIBP (mmHg) Rhythm Pain Sedation Rate (ipm) (mmHg) Status Level (bpm) 14:05:02 79 18 0 110/54(78) NSR 0 (11) 10(A) , No pain 14:09:22 77 3 0 102/57(80) NSR 0 (11) 10(A) , No pain 14:13:36 77 20 0 126/67(87) NSR 0 (11) 10(A) , No pain 14:17:56 74 25 0 109/57(76) NSR 0 (11) 10(A) , No pain 14:22:12 75 21 0 81/41(60) NSR 0 (11) 10(A) , No pain 14:26:24 75 17 0 83/44(66) NSR 0 (11) 10(A) , No pain 14:31:21 73 13 0 127/67(93) NSR 0 (11) 10(A) , No pain 14:35:43 74 30 0 122/68(85) NSR 0 (11) 10(A) , No pain 14:40:04 76 12 0 119/64(87) NSR 0 (11) 10(A) , No pain 14:44:20 76 17 0 97/54(70) NSR 0 (11) 10(A) , No pain 14:48:31 76 15 0 92/49(66) NSR 0 (11) 10(A) , No pain 14:52:45 75 15 0 90/47(66) NSR 0 (11) 10(A) , No pain 14:56:57 73 15 0 93/50(69) NSR 0 (11) 10(A) , No pain 15:01:07 73 15 0 97/57(69) NSR 0 (11) 10(A) , No pain 15:05:19 72 14 0 106/60(75) NSR 0 (11) 10(A) , No pain 15:09:31 72 17 0 102/60(78) NSR 0 (11) 10(A) , No pain 15:13:43 72 21 0 113/66(87) NSR 0 (11) 10(A) , No pain 15:17:59 72 32 0 116/67(90) NSR 0 (11) 10(A) , No pain 15:22:58 77 50 0 Measuring NSR 0 (11) 10(A) , No pain 15:23:10 77 36 0 143/87(104) NSR 0 (11) 10(A) , No pain 15:27:31 73 47 0 107/59(75) NSR 0 (11) 10(A) , No pain 15:31:42 72 34 0 95/51(69) NSR 0 (11) 10(A) , No pain 15:35:56 72 17 0 97/50(71) NSR 0 (11) 10(A) , No pain 15:40:11 72 52 0 101/54(72) NSR 0 (11) 10(A) , No pain 15:44:24 71 55 0 99/53(71) NSR 0 () 10(A) , No pain 15:48:36 73 37 0 114/64(86) NSR 0 (11) 10(A) , No pain 15:52:52 71 23 0 113/61(79) NSR 0 (11) 10(A) , No pain 15:57:06 72 27 0 109/59(81) NSR 0 (11) 10(A) , No pain 16:01:22 74 27 0 112/63(86) NSR 0 () 10(A) , No pain 16:05:22 0 No Cuff NSR 0 () 10(A) , No pain 16:09:22 0 No Cuff NSR 0 () 10(A) , No pain 16:13:22 0 No Cuff NSR 0 (11) 10(A) , No pain 16:17:21 0 No Cuff NSR 0 (11) 10(A) , No pain Medications Time Medication Route Dose Verified Delivered Reason Notes Effe ctiveness by by 13:55:11 Heparin Flush added 3 Christos Sher used for Bag to bags Katelin Thomason MD procedure (1000units/500ml field NS) 13:55:23 Lidocaine 1% added 20ml Christos Sher for local to vial Katelin Thomason MD anesthetic field MD Procedure Log Time Note 13:03:19 Patient Height : 74 inches 13:03:25 Patient Weight : 229 lbs 13:40:02 Time tracking: Regular hours (M-F 7:00 - 5:00) 13:43:18 Use device set IR Diagnostic 13:43:20 Tegaderm 4 x 4 (1626W) opened to sterile field. 13:43:21 Sterile Angiographic Pack opened to sterile field. 13:43:22 Bag Decanter (2002S) opened to sterile field. 13:43:23 ACIST Manifold (24655) opened to sterile field. 13:43:24 ACIST Hand Control (96651) opened to sterile field. 13:43:25 ACIST Syringe (77487) opened to sterile field. 13:55:11 Heparin Flush Bag (1000units/500ml NS) 3 bags added to field was administered by Christos Thomason MD; used for procedure; 13:55:23 Lidocaine 1% 20ml vial added to field was administered by Christos Thomason MD; for local anesthetic; 14:02:33 Plan of Care:Hemodynamics will remain stable., Cardiac rhythm will remain stable., Comfort level will be maintained., Respiratory function will remain adequate., Patient/ family verbilizes understanding of procedure., Procedure tolerated without complication., Recovers from procedure without complications.. 14:03:27 Patient received from ICU to IR Alert and oriented. Tansferred to table in Supine position. 14:03:36 Signed procedure consent form obtained from not obtained; Physician declared emergency. 14:03:42 ECG and BP/O2 sat monitors applied to patient. 14:03:44 Vital chart was started 14:03:46 Baseline sample Acquired. 14:03:47 Full Disclosure recording started 14:03:49 - 14:03:53 H&P Date Dictated: 04/17/2018 Within 30 days and on chart.. 14:04:02 Unable to provide pre-op teaching due to educational barrier. ? 14:04:04 Unable to provide pre-op teaching due to educational barrier. ? 14:04:10 Family unavailable. 14::14 Patient NPO since Midnight. 14::47 Is the patient allergic to Iodine/contrast media? No. 14::51 Is patient on blood thinner?No 14::54 - 14::55 ----Pre-sedation anethsthesia assessment.----see anesthesia notes for monitoring of patient during procedure 14:05:31 - 14:05:43 IV patent on arrival in Left upper arm with D5/.45%NaCl at KVO. 14::04 Right abdomen area was prepped with chlora-prep and draped in sterile fashion 14:06:09 - 14:06:41 KIT, INTRODUCER ACCUSTICK II W/C ([id number]) opened to sterile field. 14:06:42 CHIBA 22 X 15 needle opened to sterile field. 14:16:44 Physician arrived 14:16:45 --------ALL STOP TIME OUT------ 14:16:46 Final Timeout: patient, procedure, and site verified with staff and physician. All members of the team are in agreement. 14:17:23 Procedure started. 14:18:11 Local anesthetic to Abdominal area with Lidocaine 1% by Rachel Johnson MD.INITIAL ACCESS ONLY 14:19:56 Cordis 5Fr BRITE TIP 11cm sheath opened to sterile field. 14:19:57 NITINOL .018 80cm wire ([id number]) opened to sterile field. 14:19:58 TUBING Contrast Injection High Pressure (RXR756U) opened to sterile field. 14:28:33 DOC .035 wire (P86595) opened to sterile field. 14:31:21 Micropuncture VSI 4FR kit opened to sterile field. 14:32:33 TORQUE DEVICE PLASTIC .038 ( TD01) opened to sterile field. 14:32:49 GLIDE WIRE ANGLE 180cm (AX0344) opened to sterile field. 14:36:14 GLIDE CATHETER 5FR ANGLED 65cm (CG507) opened to sterile field. 14:52:14 RENEGADE STAIGHT 150CM microcatheter ([id number]) opened to sterile field. 14:52:15 TRANSEND STEERABLE wire ([id number]) opened to sterile field. 14:52:48 COIL Concerto 6mm x 20cm ([id number]) opened to sterile field. 14:52:59 IDL Instant Sawmill Manager (ID1) opened to sterile field. 14:55:57 COIL Concerto 6mm x 20cm ([id number]) opened to sterile field. 14:58:18 COIL Interlock 10 X 20 ([id number]) opened to sterile field. 15:00:02 COIL Interlock 10 X 20 ([id number]) opened to sterile field. 15:02:23 COIL Interlock 12 X 30 ([id number]) opened to sterile field. 15:10:22 COIL Concerto 6mm x 20cm (SR306YHSEC) opened to sterile field. 15:11:58 COIL Interlock 10 X 20 ([id number]) opened to sterile field. 15:14:41 COIL Interlock 14 X 30 ([id number]) opened to sterile field. 15:19:35 COIL Interlock 14 X 30 ([id number]) opened to sterile field. 15:27:57 COIL Awa 20mm x 20cm (L10206) opened to sterile field. 15:30:08 COIL Awa 20mm x 20cm (H07158) opened to sterile field. 15:35:12 STOPCOCK 3-Way Large Bore (T04385) opened to sterile field. 15:35:13 COIL Tornado 4MM (L78282) opened to sterile field. 15:35:14 COIL Tornado 4MM (W08047) opened to sterile field. 15:40:43 COIL Tornado 5mm (Q46391) opened to sterile field. 15:43:07 COIL Tornado 6MM (A51961) opened to sterile field. 15:55:48 Procedure ended.(Physican Out) 15:57:16 Fluoroscopy time 14.80 minutes. 15:57:20 Fluoroscopy dose: 3232 mGy 15:57:20 Flurop Dose total: 3232 15:57:25 Contrast amount:Isovue 300 110ml. 15:57:27 Procedure and supply charges have been captured, reviewed, submitted an d are correct. 15:59:46 Report given to ICU. 16:20:11 Vital chart was stopped Device Usage Item Name Manufacture Quantity Catalog Number Hospital Part Current [facility] Lot# / Charge Number Stock Stock Serial# Code Tegaderm 4 x 3M 1 1626W 551732 724020 871682 5 4 (1626W) Sterile Cardinal 1 [id number] 121119 169363 5 Angiographic Health Pack Bag Decanter Microtek 1 2001S 584131 76291 575627 5 (2001S) Medical Inc. ACIST Acist 1 79849 334597 280573 305338 5 Manifold Medical (61639) Systems Inc ACIST Hand Acist 1 56154 498726 598880 438370 5 Control Medical (26449) Systems Inc ACIST Syringe Acist 1 56184 757353 128558 600303 20 (62428) Medical Systems Inc KIT, [place]ois 1 [id number] 747497 083449 667786 5 [id number] INTRODUCER Scientific ACCUSTICK II W/C ([id number]) CHIBA 22 X 15 Cook Medical 1 U95607 249431 313553 5 5677511 needle Cordis 5Fr Cardinal 1 973677O 812093 204487 5 BRITE TIP Health 11cm sheath NITINOL .018 Medtronic 1 N871644 351538 193236 5 80cm wire (I615888) TUBING Merit 1 DIA163O 245224 710322 042398 5 [id number] Contrast Medical Injection High Pressure (VCV709S) DOC .035 wire [facility] 1 G01632 494482 602087 5 (I12718) Micropuncture VSI VASCULAR 1 7266V 497162 876532 5 VSI 4FR kit SOLUTIONS TORQUE DEVICE Iroquois 1 TD01 447652 341182 735258 5 PLASTIC .038 Scientific ( TD01) GLIDE WIRE Terumo 1 OY9994 971826 664000 860386 5 ANGLE 180cm (MJ5592) GLIDE Terumo 1 CG507 150172 291575 5 CATHETER 5FR ANGLED 65cm (CG507) RENEGADE Iroquois 1 [id number] 384793 029583 5 [id number] STAIGHT 150CM Scientific microcatheter (F108656912) TRANSEND Iroquois 1 [id number] 191759 767728 5 74223966 STEERABLE Scientific wire (Q565679871) COIL [facility] 2 MC-2-96-HELIX 705047 155533 587105 5 [id number] 6mm x 20cm [id number] ([id number]) IDL Instant B. Bates 1 ID-1 565686 2808660 025066 5 Sawmill Manager (ID1) COIL Iroquois 2 [id number] 924721 812695 5 [id number] Interlock 10 Scientific [id number] X 20 ([id number]) COIL Iroquois 1 [id number] 591900 983461 360252 5 [id number] Interlock 12 Scientific X 30 ([id number]) COIL Iroquois 1 [id number] 930768 223348 255688 5 [id number] Interlock 14 Scientific X 30 ([id number]) COIL Awa [facility] 2 R62062 622826 942364 302516 5 [id number] 20mm x 20cm [id number] (Q27604) [facility] 1 Q82000 589223 2969 232927 [address] Large Bore (I28852) COIL [facility] 2 H19123 969402 762368 5 3972212 4MM (F02091) 2957261 [facility]IL [facility] 1 S85562 715657 672460 5 8094279 5mm (A28186) COIL [facility] 1 P69267 787170 939961 5 6147123 6MM (T65531) Signature Audit [place] Stage Time Signature Unsigned Intra-Procedure 04/17/2018 Imani Buck 4:20:07 PM RT(R) [facility] [address] [place] [address]
[2018-04-13 13:52] LABS: BASOPHILS 0.4 % (0-2); EOSINOPHILS 1.7 % (0-7); HEMOGLOBIN 9.3 g/dL (13.5-17.5); IMMATURE GRANULOCYTES 0.6 % (0-5); MCHC 34.4 g/dL (31.0-37.0); MCV 101.5 fL (80.0-100.0); MEAN PLATELET VOLUME 8.2 fL (7.4-10.4); MONOCYTES 7.3 % (2-11); RBC 2.66 10x6/uL (4.20-6.10); RDW 16.1 % (11.5-14.5); WBC 4.8 10x3/uL (4.8-10.8)
[2018-04-13 13:53] LABS: PLATELET COUNT 117 10x3/uL (130-400)
[2018-04-13 14:06] LABS: ALBUMIN 2.6 g/dL (3.4-5.0); ALKALINE PHOSPHATASE 143 U/L (46-116); ALT (SGPT) 16 U/L (10-68); BILIRUBIN - TOTAL 2.83 mg/dL (0.2-1.3); CALC OSMOLALITY 277 mosm/kg (275-300); CALCIUM 8.7 mg/dL (8.5-10.1); CARBON DIOXIDE 27.2 mmol/L (21.0-32.0); CHLORIDE - SERUM 103 mmol/L (98-107); GLUCOSE 110 mg/dL (74-106); POTASSIUM - SERUM 3.4 mmol/L (3.5-5.1); PROTEIN - SERUM 7.6 g/dL (6.4-8.2); SODIUM 140 mmol/L (136-145); UREA NITROGEN 8 mg/dL (7-18); eGFR NON AFRICAN AMERICAN 82 mL/min (90-120)
[2018-04-13 15:47] VITALS: BP 151/71
[2018-04-13 16:05] LABS: C-REACTIVE PROTEIN 3.6 mg/dL (0.0-0.9)
[2018-04-13 17:02] LABS: HEMATOCRIT 25.5 % (42.0-54.0); HEMOGLOBIN 8.8 g/dL (13.5-17.5)
[2018-04-13 17:37] VITALS: BP 132/74
[2018-04-13 19:00] VITALS: BP 111/50
[2018-04-13 21:04] LABS: APTT 41.8 SECONDS (22.8-39.4); INR 1.85 (0.85-1.17); PROTIME 20.7 SECONDS (11.6-15.0)
[2018-04-13 21:19] VITALS: BP 118/71
[2018-04-13 22:00] VITALS: BP 121/86
[2018-04-13 23:00] VITALS: BP 105/66
[2018-04-14] VITALS (32 sets, daily range): BP systolic 89–123; BP diastolic 48–85; Ht 188 cm; Wt 100.2 kg
[2018-04-14 04:27] LABS: BASOPHILS 0.4 % (0-2); EOSINOPHILS 2.2 % (0-7); HEMATOCRIT 25.1 % (42.0-54.0); HEMOGLOBIN 8.7 g/dL (13.5-17.5); IMMATURE GRANULOCYTES 0.6 % (0-5); INR 1.81 (0.85-1.17); LYMPHOCYTES 7.6 % (15-50); MCH 33.2 pg (26.0-34.0); MCHC 34.7 g/dL (31.0-37.0); MCV 95.8 fL (80.0-100.0); MEAN PLATELET VOLUME 8.5 fL (7.4-10.4); MONOCYTES 6.2 % (2-11); PLATELET COUNT 138 10x3/uL (130-400); PROTIME 20.4 SECONDS (11.6-15.0); RBC 2.62 10x6/uL (4.20-6.10); RDW 18.8 % (11.5-14.5)
[2018-04-14 04:34] LABS: ALBUMIN 2.4 g/dL (3.4-5.0); ALKALINE PHOSPHATASE 98 U/L (46-116); BILIRUBIN - TOTAL 3.71 mg/dL (0.2-1.3); CALC OSMOLALITY 270 mosm/kg (275-300); CALCIUM 7.9 mg/dL (8.5-10.1); CARBON DIOXIDE 25.2 mmol/L (21.0-32.0); CHLORIDE - SERUM 102 mmol/L (98-107); CREATININE - SERUM 0.9 mg/dL (0.6-1.3); GLUCOSE 121 mg/dL (74-106); PROTEIN - SERUM 6.5 g/dL (6.4-8.2); SODIUM 136 mmol/L (136-145); UREA NITROGEN 8 mg/dL (7-18); eGFR NON AFRICAN AMERICAN > 90 mL/min (90-120)
[2018-04-14 04:41] LABS: ALT (SGPT) 11 U/L (10-68); POTASSIUM - SERUM 4.1 mmol/L (3.5-5.1)
[2018-04-15] VITALS (20 sets, daily range): BP systolic 108–174; BP diastolic 64–98
[2018-04-15 00:13] LABS: HEMATOCRIT 27.3 % (42.0-54.0); HEMOGLOBIN 9.5 g/dL (13.5-17.5)
[2018-04-15 04:40] LABS: BASOPHILS 0.4 % (0-2); EOSINOPHILS 5.7 % (0-7); HEMOGLOBIN 9.5 g/dL (13.5-17.5); IMMATURE GRANULOCYTES 1.4 % (0-5); LYMPHOCYTES 12.2 % (15-50); MCH 32.2 pg (26.0-34.0); MCHC 33.9 g/dL (31.0-37.0); MCV 94.9 fL (80.0-100.0); MEAN PLATELET VOLUME 8.6 fL (7.4-10.4); MONOCYTES 9.2 % (2-11); NEUTROPHILS 71.1 % (40-80); PLATELET COUNT 136 10x3/uL (130-400); RBC 2.95 10x6/uL (4.20-6.10); RDW 19.3 % (11.5-14.5); WBC 5.1 10x3/uL (4.8-10.8)
[2018-04-15 04:54] LABS: INR 1.66 (0.85-1.17)
[2018-04-15 05:01] LABS: ALBUMIN 2.6 g/dL (3.4-5.0); ANION GAP 10.5 mmol/L (8-16); BILIRUBIN - TOTAL 4.07 mg/dL (0.2-1.3); CALCIUM 7.7 mg/dL (8.5-10.1); CARBON DIOXIDE 28.3 mmol/L (21.0-32.0); CREATININE - SERUM 1.1 mg/dL (0.6-1.3); POTASSIUM - SERUM 3.8 mmol/L (3.5-5.1)
[2018-04-15 11:46] LABS: HEMATOCRIT 27.2 % (42.0-54.0); HEMOGLOBIN 9.2 g/dL (13.5-17.5)
[2018-04-15 14:35] LABS: HEMOGLOBIN 9.2 g/dL (13.5-17.5)
[2018-04-15 18:58] LABS: HEMATOCRIT 28.6 % (42.0-54.0); HEMOGLOBIN 9.6 g/dL (13.5-17.5)
[2018-04-15 23:32] LABS: HEMATOCRIT 27.8 % (42.0-54.0); HEMOGLOBIN 9.7 g/dL (13.5-17.5)
[2018-04-16] VITALS (29 sets, daily range): BP systolic 104–151; BP diastolic 64–99
[2018-04-16 04:45] LABS: BASOPHILS 0.4 % (0-2); EOSINOPHILS 3.5 % (0-7); HEMATOCRIT 27.9 % (42.0-54.0); HEMOGLOBIN 9.5 g/dL (13.5-17.5); IMMATURE GRANULOCYTES 1.9 % (0-5); LYMPHOCYTES 14.6 % (15-50); MCH 32.8 pg (26.0-34.0); MCHC 34.1 g/dL (31.0-37.0); MCV 96.2 fL (80.0-100.0); MEAN PLATELET VOLUME 8.5 fL (7.4-10.4); MONOCYTES 9.2 % (2-11); NEUTROPHILS 70.4 % (40-80); PLATELET COUNT 143 10x3/uL (130-400); RDW 18.4 % (11.5-14.5); WBC 5.1 10x3/uL (4.8-10.8)
[2018-04-16 05:02] LABS: INR 1.66 (0.85-1.17)
[2018-04-16 05:09] LABS: ALBUMIN 2.6 g/dL (3.4-5.0); ALKALINE PHOSPHATASE 93 U/L (46-116); ALT (SGPT) 15 U/L (10-68); BILIRUBIN - TOTAL 3.31 mg/dL (0.2-1.3); CALC OSMOLALITY 275 mosm/kg (275-300); CALCIUM 7.8 mg/dL (8.5-10.1); CARBON DIOXIDE 28.7 mmol/L (21.0-32.0); CHLORIDE - SERUM 104 mmol/L (98-107); CREATININE - SERUM 0.9 mg/dL (0.6-1.3); GLUCOSE 104 mg/dL (74-106); POTASSIUM - SERUM 3.5 mmol/L (3.5-5.1); PROTEIN - SERUM 7.1 g/dL (6.4-8.2); SODIUM 140 mmol/L (136-145); UREA NITROGEN 5 mg/dL (7-18); eGFR NON AFRICAN AMERICAN > 90 mL/min (90-120)
[2018-04-16 07:52] LABS: APPEARANCE HAZY (CLEAR); BACTERIA FEW /hpf (NONE SEEN); BILIRUBIN NEGATIVE (NEGATIVE); COLOR DK YELLOW (YELLOW); EPITHELIAL CELLS OCC /hpf (0-5); GLUCOSE NEGATIVE (NEGATIVE); KETONE NEGATIVE (NEGATIVE); MUCUS <1+ /lpf (NONE SEEN); NITRITE NEGATIVE (NEGATIVE); PROTEIN NEGATIVE (NEGATIVE); SPECIFIC GRAVITY 1.015 (1.005-1.020); UROBILINOGEN NORMAL (NORMAL); WHITE CELLS - URINE RARE /hpf (0-5)
[2018-04-16 12:18] LABS: HEMATOCRIT 29.3 % (42.0-54.0); HEMOGLOBIN 9.7 g/dL (13.5-17.5)
[2018-04-16 15:29] LABS: HEMATOCRIT 26.6 % (42.0-54.0); HEMOGLOBIN 9.1 g/dL (13.5-17.5)
--- NOTE | 2018-04-16 20:46 | MORECARE ---
CASE MANAGEMENT DISCHARGE SUMMARY PATIENT: SERGE BOWLES UNIT: [id number] ADM DATE: 04/13/18 AGE: 57 : 60 SEX: M ROOM/BED: D.2315 AUTHOR: KIERA LAURENT PHYSICIAN: REFERRING PHYSICIAN: NICOLASA KUMAR MD DATE OF SERVICE: 04/16/18 Discharge Plan Patient Name: SERGE BOWLES Facility: [facility]:[place] : 1960 Planned Disposition: Anticipated Discharge Date: Discharge Date: Expected LOS: Initial Reviewer: [email or web address] Initial Review Date: 04/16/2018 Generated: 04/16/18 9:46 pm Comments DCP- Discharge Planning Updated by [email or web address]: Latisha Akbar on 04/16/18 7:[address] CM attempted to discuss discharge planning with patient at bedside. Patient somewhat confused and unable to answer questions appropriately. CM will try back at later time. CM will continue to follow and assist as needed with discharge planning / needs. Patient Name: SERGE BOWLES Page 38494 at 204 All edits/amendments must be made on the electronic document DICTATION DATE: 04/16/182045 SUPERVISOR SHIP MAINTENANCE SERVICES: TENZIN 04/16/182045 RPT#: [id number] DC DATE: STATUS: ADM IN [facility] [address] [place] [address] END OF REPORT
[2018-04-16 21:02] LABS: HEMATOCRIT 24.6 % (42.0-54.0); HEMOGLOBIN 8.2 g/dL (13.5-17.5)
[2018-04-17] VITALS (25 sets, daily range): BP systolic 91–148; BP diastolic 54–96
[2018-04-17 05:13] LABS: BASOPHILS 0.8 % (0-2); EOSINOPHILS 2.5 % (0-7); IMMATURE GRANULOCYTES 4.5 % (0-5); LYMPHOCYTES 13.5 % (15-50); MCH 31.2 pg (26.0-34.0); MCHC 33.5 g/dL (31.0-37.0); MEAN PLATELET VOLUME 8.5 fL (7.4-10.4); NEUTROPHILS 69.7 % (40-80); PLATELET COUNT 159 10x3/uL (130-400); RBC 3.33 10x6/uL (4.20-6.10); RDW 19.7 % (11.5-14.5)
[2018-04-17 05:22] LABS: APTT 37.6 SECONDS (22.8-39.4); INR 1.65 (0.85-1.17); PROTIME 18.9 SECONDS (11.6-15.0)
[2018-04-17 05:28] LABS: HEMOGLOBIN 10.4 g/dL (13.5-17.5); MCV 93.1 fL (80.0-100.0); WBC 6.5 10x3/uL (4.8-10.8)
[2018-04-17 05:45] LABS: ALBUMIN 2.7 g/dL (3.4-5.0); ALKALINE PHOSPHATASE 94 U/L (46-116); ALT (SGPT) 17 U/L (10-68); BILIRUBIN - TOTAL 3.65 mg/dL (0.2-1.3); CALC OSMOLALITY 276 mosm/kg (275-300); CALCIUM 8.1 mg/dL (8.5-10.1); CARBON DIOXIDE 29.6 mmol/L (21.0-32.0); CHLORIDE - SERUM 102 mmol/L (98-107); GLUCOSE 112 mg/dL (74-106); POTASSIUM - SERUM 3.7 mmol/L (3.5-5.1); PROTEIN - SERUM 7.2 g/dL (6.4-8.2); SODIUM 140 mmol/L (136-145); UREA NITROGEN 5 mg/dL (7-18); eGFR NON AFRICAN AMERICAN 82 mL/min (90-120)
[2018-04-17 17:12] LABS: HEMATOCRIT 32.1 % (42.0-54.0)
--- NOTE | 2018-04-17 17:31 | MORECARE ---
CASE MANAGEMENT DISCHARGE SUMMARY PATIENT: SERGE BOWLES UNIT: [id number] ADM DATE: 04/13/18 AGE: 57 : 60 SEX: M ROOM/BED: D.2315 AUTHOR: KIERA LAURENT PHYSICIAN: REFERRING PHYSICIAN: NICOLASA KUMAR MD DATE OF SERVICE: 04/17/18 Discharge Plan Patient Name: SERGE BOWLES Facility: [facility]:[place] : 1960 Planned Disposition: Anticipated Discharge Date: Discharge Date: Expected LOS: Initial Reviewer: [email or web address] Initial Review Date: 04/16/2018 Generated: 04/17/18 6:31 pm Comments DCP- Discharge Planning Updated by [email or web address]: Latisha Akbar on 04/17/18 4:[address] CM attempted to visit with patient regarding discharge planning / needs. Patient just arrived back from procedure and currently sedated. CM will check back later. CM will continue to follow and assist as needed with discharge planning / needs. DCP- Discharge Planning Updated by [email or web address]: Latisha Akbar on 04/16/18 7:[address] CM attempted to discuss discharge planning with patient at bedside. Patient somewhat confused and unable to answer questions appropriately. CM will try back at later time. CM will continue to follow and assist as needed with discharge planning / needs. Last DP export: 04/16/18 7:46 p Patient Name: SERGE BOWLES Page 24044 at 1731 All edits/amendments must be made on the electronic document DICTATION DATE: 04/17/181729 ASSISTANT PROFESSOR OF SURGERY: TENZIN 04/17/181729 RPT#: [id number] DC DATE: STATUS: ADM IN [facility] [address] [place] [address] END OF REPORT
[2018-04-17 22:42] LABS: HEMATOCRIT 29.1 % (42.0-54.0); HEMOGLOBIN 9.8 g/dL (13.5-17.5)
[2018-04-18] VITALS (24 sets, daily range): BP systolic 92–180; BP diastolic 60–109
[2018-04-18 05:16] LABS: INR 1.73 (0.85-1.17); PROTIME 19.6 SECONDS (11.6-15.0)
[2018-04-18 05:25] LABS: HEMATOCRIT 31.3 % (42.0-54.0); HEMOGLOBIN 10.7 g/dL (13.5-17.5); LYMPHOCYTES 12.3 % (15-50); MCHC 34.2 g/dL (31.0-37.0); MCV 93.7 fL (80.0-100.0); MEAN PLATELET VOLUME 8.1 fL (7.4-10.4); NEUTROPHILS 80.9 % (40-80); PLATELET COUNT 180 10x3/uL (130-400); RBC 3.34 10x6/uL (4.20-6.10); RDW 19.8 % (11.5-14.5); WBC 5.7 10x3/uL (4.8-10.8)
[2018-04-18 05:27] LABS: ALBUMIN 2.9 g/dL (3.4-5.0); ANION GAP 13.9 mmol/L (8-16); BILIRUBIN - TOTAL 3.17 mg/dL (0.2-1.3); CALCIUM 8.4 mg/dL (8.5-10.1); CARBON DIOXIDE 29.4 mmol/L (21.0-32.0); CREATININE - SERUM 1.2 mg/dL (0.6-1.3); POTASSIUM - SERUM 3.3 mmol/L (3.5-5.1); PROTEIN - SERUM 7.7 g/dL (6.4-8.2)
[2018-04-18 10:38] LABS: HEMATOCRIT 32.7 % (42.0-54.0); HEMOGLOBIN 10.9 g/dL (13.5-17.5)
--- NOTE | 2018-04-18 14:49 | MORECARE ---
CASE MANAGEMENT DISCHARGE SUMMARY PATIENT: SERGE BOWLES UNIT: [id number] ADM DATE: 04/13/18 AGE: 57 : 60 SEX: M ROOM/BED: D.2315 AUTHOR: KIERA LAURENT PHYSICIAN: REFERRING PHYSICIAN: NICOLASA KUMAR MD DATE OF SERVICE: 04/18/18 Discharge Plan Patient Name: SERGE BOWLES Facility: [facility]:[place] : 1960 Planned Disposition: Anticipated Discharge Date: Discharge Date: Expected LOS: Initial Reviewer: [email or web address] Initial Review Date: 04/16/2018 Generated: 04/18/18 3:49 pm Comments DCP- Discharge Planning Updated by [email or web address]: Latisha Akbar on 04/18/18 1:[address] CM attempted to visit with patient for discharge planning. Patient is confused and yelling out . CM attempted to call contact listed Kiara Brown (sister) [phone]. Received an answer from a lady who isn't Kiara Brown. CM will attempt to try to find a family member for contact information. CM will continue to follow and assist as needed with discharge planning / needs DCP- Discharge Planning Updated by [email or web address]: Latisha Akbar on 04/17/18 4:[address] CM attempted to visit with patient regarding discharge planning / needs. Patient just arrived back from procedure and currently sedated. CM will check back later. CM will continue to follow and assist as needed with discharge planning / needs. DCP- Discharge Planning Updated by [email or web address]: Latisha Akbar on 04/16/18 7:[address] CM attempted to discuss discharge planning with patient at bedside. Patient somewhat confused and unable to answer questions appropriately. CM will try back at later time. CM will continue to follow and assist as needed with discharge planning / needs. Last DP export: 04/17/18 4:31 p Patient Name: SERGE BOWLES Page 78414 at 4518 All edits/amendments must be made on the electronic document DICTATION DATE: 04/18/18 1443 EXTRUSION DIE COORDINATOR: TENZIN 04/18/18 1448 RPT#: [id number] DC DATE: STATUS: ADM IN [facility] [address] [place] [address] END OF REPORT
[2018-04-19] VITALS (24 sets, daily range): BP systolic 90–180; BP diastolic 60–107
[2018-04-19 04:12] LABS: BASOPHILS 1.7 % (0-2); EOSINOPHILS 1.9 % (0-7); HEMATOCRIT 33.6 % (42.0-54.0); HEMOGLOBIN 11.1 g/dL (13.5-17.5); IMMATURE GRANULOCYTES 7.9 % (0-5); LYMPHOCYTES 12.2 % (15-50); MCH 31.3 pg (26.0-34.0); MCV 94.6 fL (80.0-100.0); MEAN PLATELET VOLUME 8.6 fL (7.4-10.4); MONOCYTES 7.4 % (2-11); NEUTROPHILS 68.9 % (40-80); PLATELET COUNT 170 10x3/uL (130-400); RBC 3.55 10x6/uL (4.20-6.10); RDW 19.9 % (11.5-14.5)
[2018-04-19 04:13] LABS: WBC 7.5 10x3/uL (4.8-10.8)
[2018-04-19 04:22] LABS: APTT 33.1 SECONDS (22.8-39.4); INR 1.83 (0.85-1.17); PROTIME 20.5 SECONDS (11.6-15.0)
[2018-04-19 04:27] LABS: ALBUMIN 3.1 g/dL (3.4-5.0); ALKALINE PHOSPHATASE 101 U/L (46-116); BILIRUBIN - TOTAL 3.49 mg/dL (0.2-1.3); CALC OSMOLALITY 298 mosm/kg (275-300); CALCIUM 8.9 mg/dL (8.5-10.1); CARBON DIOXIDE 27.1 mmol/L (21.0-32.0); CHLORIDE - SERUM 112 mmol/L (98-107); GLUCOSE 139 mg/dL (74-106); PROTEIN - SERUM 7.5 g/dL (6.4-8.2); SODIUM 151 mmol/L (136-145); UREA NITROGEN 5 mg/dL (7-18); eGFR NON AFRICAN AMERICAN 82 mL/min (90-120)
[2018-04-19 04:32] LABS: ALT (SGPT) 23 U/L (10-68); POTASSIUM - SERUM 3.4 mmol/L (3.5-5.1)
[2018-04-20] VITALS (24 sets, daily range): BP systolic 99–196; BP diastolic 67–120
[2018-04-20 02:59] LABS: BASOPHILS 1.5 % (0-2); EOSINOPHILS 3.3 % (0-7); HEMATOCRIT 37.9 % (42.0-54.0); HEMOGLOBIN 12.2 g/dL (13.5-17.5); IMMATURE GRANULOCYTES 6.2 % (0-5); LYMPHOCYTES 14.1 % (15-50); MCH 31.9 pg (26.0-34.0); MCHC 32.2 g/dL (31.0-37.0); MEAN PLATELET VOLUME 9.1 fL (7.4-10.4); MONOCYTES 7.8 % (2-11); NEUTROPHILS 67.1 % (40-80); PLATELET COUNT 156 10x3/uL (130-400); RBC 3.83 10x6/uL (4.20-6.10); RDW 20.6 % (11.5-14.5); WBC 8.2 10x3/uL (4.8-10.8)
[2018-04-20 03:10] LABS: ALBUMIN 3.2 g/dL (3.4-5.0); ANION GAP 16.1 mmol/L (8-16); BILIRUBIN - TOTAL 3.38 mg/dL (0.2-1.3); CALCIUM 9.3 mg/dL (8.5-10.1); CREATININE - SERUM 1.1 mg/dL (0.6-1.3); PROTEIN - SERUM 8.5 g/dL (6.4-8.2)
[2018-04-20 03:17] LABS: POTASSIUM - SERUM 4.1 mmol/L (3.5-5.1)
[2018-04-21] VITALS (25 sets, daily range): BP systolic 104–186; BP diastolic 72–115
[2018-04-21 03:46] LABS: BASOPHILS 1.5 % (0-2); EOSINOPHILS 3.8 % (0-7); HEMATOCRIT 37.7 % (42.0-54.0); HEMOGLOBIN 11.8 g/dL (13.5-17.5); IMMATURE GRANULOCYTES 4.9 % (0-5); MCH 31.8 pg (26.0-34.0); MCHC 31.3 g/dL (31.0-37.0); MEAN PLATELET VOLUME 8.9 fL (7.4-10.4); MONOCYTES 5.3 % (2-11); NEUTROPHILS 71.5 % (40-80); PLATELET COUNT 162 10x3/uL (130-400); RBC 3.71 10x6/uL (4.20-6.10); RDW 21.1 % (11.5-14.5)
[2018-04-21 03:51] LABS: MCV 101.6 fL (80.0-100.0); WBC 6.1 10x3/uL (4.8-10.8)
[2018-04-21 06:49] LABS: ALBUMIN 3.2 g/dL (3.4-5.0); BILIRUBIN - TOTAL 2.81 mg/dL (0.2-1.3); CALCIUM 8.7 mg/dL (8.5-10.1); CARBON DIOXIDE 30.5 mmol/L (21.0-32.0); CREATININE - SERUM 1.3 mg/dL (0.6-1.3); POTASSIUM - SERUM 3.7 mmol/L (3.5-5.1); PROTEIN - SERUM 7.8 g/dL (6.4-8.2)
[2018-04-21 06:50] LABS: ANION GAP 14.2 mmol/L (8-16)
[2018-04-21 18:18] LABS: ANION GAP 12.5 mmol/L (8-16); CALCIUM 8.9 mg/dL (8.5-10.1); CARBON DIOXIDE 30.1 mmol/L (21.0-32.0); CREATININE - SERUM 1.4 mg/dL (0.6-1.3); POTASSIUM - SERUM 3.6 mmol/L (3.5-5.1)
[2018-04-21 20:56] LABS: ANION GAP 9.9 mmol/L (8-16); CALCIUM 8.6 mg/dL (8.5-10.1); CARBON DIOXIDE 29.3 mmol/L (21.0-32.0); CREATININE - SERUM 1.3 mg/dL (0.6-1.3); POTASSIUM - SERUM 3.2 mmol/L (3.5-5.1)
[2018-04-22] VITALS (24 sets, daily range): BP systolic 109–171; BP diastolic 72–121
[2018-04-22 04:56] LABS: BASOPHILS 0.5 % (0-2); EOSINOPHILS 5.4 % (0-7); HEMATOCRIT 36.7 % (42.0-54.0); HEMOGLOBIN 11.3 g/dL (13.5-17.5); IMMATURE GRANULOCYTES 2.1 % (0-5); LYMPHOCYTES 12.6 % (15-50); MCH 31.6 pg (26.0-34.0); MCHC 30.8 g/dL (31.0-37.0); MCV 102.5 fL (80.0-100.0); MEAN PLATELET VOLUME 8.9 fL (7.4-10.4); MONOCYTES 5.3 % (2-11); NEUTROPHILS 74.1 % (40-80); PLATELET COUNT 145 10x3/uL (130-400); RBC 3.58 10x6/uL (4.20-6.10); RDW 20.4 % (11.5-14.5); WBC 5.7 10x3/uL (4.8-10.8)
[2018-04-22 09:12] LABS: ANION GAP 16.9 mmol/L (8-16); CALCIUM 8.8 mg/dL (8.5-10.1); CARBON DIOXIDE 26.4 mmol/L (21.0-32.0); CREATININE - SERUM 1.3 mg/dL (0.6-1.3); POTASSIUM - SERUM 3.3 mmol/L (3.5-5.1)
[2018-04-22 13:31] LABS: ANION GAP 13.5 mmol/L (8-16); CALCIUM 8.9 mg/dL (8.5-10.1); CARBON DIOXIDE 28.1 mmol/L (21.0-32.0); CREATININE - SERUM 1.3 mg/dL (0.6-1.3); POTASSIUM - SERUM 3.6 mmol/L (3.5-5.1)
[2018-04-22 18:10] LABS: ANION GAP 13.7 mmol/L (8-16); CALCIUM 9.1 mg/dL (8.5-10.1); CARBON DIOXIDE 28.7 mmol/L (21.0-32.0); CREATININE - SERUM 1.3 mg/dL (0.6-1.3); POTASSIUM - SERUM 3.4 mmol/L (3.5-5.1)
--- NOTE | 2018-04-22 18:11 | MORECARE ---
CASE MANAGEMENT DISCHARGE SUMMARY PATIENT: SERGE BOWLES UNIT: [id number] ADM DATE: 04/13/18 AGE: 57 : 60 SEX: M ROOM/BED: D.2314 AUTHOR: KIERA LAURENT PHYSICIAN: REFERRING PHYSICIAN: NICOLASA KUMAR MD DATE OF SERVICE: 04/22/18 Discharge Plan Patient Name: SERGE BOWLES Facility: [facility]:[place] : 1960 Planned Disposition: Hospice Home Anticipated Discharge Date: Discharge Date: Expected LOS: Initial Reviewer: [email or web address] Initial Review Date: 04/16/2018 Generated: 04/22/18 7:11 pm Comments DCP- Discharge Planning Updated by [email or web address]: Latisha Akbar on 04/18/18 1:[address] CM attempted to visit with patient for discharge planning. Patient is confused and yelling out . CM attempted to call contact listed Kiara Brown (sister) [phone]. Received an answer from a lady who isn't Kiara Brown. CM will attempt to try to find a family member for contact information. CM will continue to follow and assist as needed with discharge planning / needs DCP- Discharge Planning Updated by [email or web address]: Latisha Akbar on 04/17/18 4:[address] CM attempted to visit with patient regarding discharge planning / needs. Patient just arrived back from procedure and currently sedated. CM will check back later. CM will continue to follow and assist as needed with discharge planning / needs. DCP- Discharge Planning Updated by [email or web address]: Latisha Akbar on 04/16/18 7:[address] CM attempted to discuss discharge planning with patient at bedside. Patient somewhat confused and unable to answer questions appropriately. CM will try back at later time. CM will continue to follow and assist as needed with discharge planning / needs. Last DP export: 04/18/18 1:49 p Patient Name: SERGE BOWLES Page 14329 at 1811 All edits/amendments must be made on the electronic document DICTATION DATE: 04/22/181809 LITIGATION SPECIALIST: TENZIN 04/22/181809 RPT#: [id number] DC DATE: STATUS: ADM IN [facility] [address] [place] [address] END OF REPORT
--- NOTE | 2018-04-22 18:20 | MORECARE ---
CASE MANAGEMENT DISCHARGE SUMMARY PATIENT: SERGE BOWLES UNIT: [id number] ADM DATE: 04/13/18 AGE: 57 : 60 SEX: M ROOM/BED: D.2314 AUTHOR: ANASTASIIA,DOC PHYSICIAN: REFERRING PHYSICIAN: NICOLASA KUMAR MD DATE OF SERVICE: 04/22/18 Discharge Plan Patient Name: SERGE BOWLES Facility: [facility]:[place] : 1960 Planned Disposition: Hospice Home Anticipated Discharge Date: Discharge Date: Expected LOS: Initial Reviewer: [email or web address] Initial Review Date: 04/16/2018 Generated: 04/22/18 7:20 pm Comments DCP- Discharge Planning Updated by [email or web address]: Latisha Akbar on 04/18/18 1:[address] CM attempted to visit with patient for discharge planning. Patient is confused and yelling out . CM attempted to call contact listed Kiara Brown (sister) [phone]. Received an answer from a lady who isn't Kiara Brown. CM will attempt to try to find a family member for contact information. CM will continue to follow and assist as needed with discharge planning / needs DCP- Discharge Planning Updated by [email or web address]: Latisha Akbar on 04/17/18 4:[address] CM attempted to visit with patient regarding discharge planning / needs. Patient just arrived back from procedure and currently sedated. CM will check back later. CM will continue to follow and assist as needed with discharge planning / needs. DCP- Discharge Planning Updated by [email or web address]: Latisha Akbar on 04/16/18 7:[address] CM attempted to discuss discharge planning with patient at bedside. Patient somewhat confused and unable to answer questions appropriately. CM will try back at later time. CM will continue to follow and assist as needed with discharge planning / needs. DCPIA - Discharge Planning Initial Assessment Updated by [email or web address]: Latisha Akbar on 04/22/18 6:12 pm * Is the patient Alert and Oriented? No * PCP DR. MATA; * Preadmission Environment Homeless * Other Environment Sister Shannan Brown states he lives on the streets * ADLs Independent * List name and contact numbers for known caregivers / representatives who currently or will assist patient after discharge: Shannan Brown - - [employer]LEX[employer] - [phone] * Verbal permission to speak to the caregivers and representatives has been obtained from the patient. N/A * Community resources currently utilized None * Can the patient safely return to the preadmission environment? No * Has this patient been hospitalized within the prior 30 days at any hospital? No Last DP export: 04/22/18 5:11 p Patient Name: SERGE BOWLES Page 73846 at 1820 All edits/amendments must be made on the electronic document DICTATION DATE: 04/22/181819 RESPIRATORY THERAPIST ASSISTANT: TENZIN 04/22/181819 RPT#: [id number] DC DATE: STATUS: ADM IN [facility] [address] [place] [address] END OF REPORT
--- NOTE | 2018-04-22 18:28 | MORECARE ---
CASE MANAGEMENT DISCHARGE SUMMARY PATIENT: SERGE BOWLES UNIT: [id number] ADM DATE: 04/13/18 AGE: 57 : 60 SEX: M ROOM/BED: D.2314 AUTHOR: ANASTASIIADOC PHYSICIAN: REFERRING PHYSICIAN: NICOLASA WARE MD DATE OF SERVICE: 04/22/18 Discharge Plan Patient Name: SERGE BOWLES Facility: [facility]:[place] : 1960 Planned Disposition: Hospice Home Anticipated Discharge Date: Discharge Date: Expected LOS: Initial Reviewer: [email or web address] Initial Review Date: 04/16/2018 Generated: 04/22/18 7:28 pm Comments DCP- Discharge Planning Updated by [email or web address]: Latisha Akbar on 04/22/18 5:[address] Patient Name: SERGE BOWLES Admission Status: ER Accout number: [id number] Admission Date: 04-13-2018 : 1960 Admission Diagnosis:GASTROINTESTINAL HEMORRHAGE, UNSPECIFIED Attending: NICOLASA WARE Current LOS: 9 Anticipated DC Date: Planned Disposition: Hospice Home Primary Insurance: MEDICAID [place] Discharge Planning Comments: CM was finally able to locate sister Shannan Brown [phone]. Shannan states that patient doesn't have a home that he lives on the streets. Patient is very confused and unable to converse or make decisions. Shannan and patients uncle Christos Barrett [phone] stated that he doesn't have any children or spouse. Mother and father are . He has one other sibling (brother) that lives in [place]. Shannan stated that she has spoken with him earlier about patient. Family requested to speak with physician about comfort care. Dr. Ware spoke with family and CM received order for Hospice care. CM called and spoke with Jayesh Harvey with [facility] regarding referral. Jayesh stated he would be here shortly to visit with family. CM will continue to follow and assist as needed with discharge planning / needs. Veneer Sorter: Latisha Akbar DCP- Discharge Planning Updated by [email or web address]: Latisha Akbar on 04/18/18 1:[address] CM attempted to visit with patient for discharge planning. Patient is confused and yelling out . CM attempted to call contact listed Kiara Brown (sister) [phone]. Received an answer from a lady who isn't Kiara Brown. CM will attempt to try to find a family member for contact information. CM will continue to follow and assist as needed with discharge planning / needs DCP- Discharge Planning Updated by [id number]: Latisha Akbar on 04/17/18 4:[address] CM attempted to visit with patient regarding discharge planning / needs. Patient just arrived back from procedure and currently sedated. CM will check back later. CM will continue to follow and assist as needed with discharge planning / needs. DCP- Discharge Planning Updated by [email or web address]: Latisha Akbar on 04/16/18 7:[address] CM attempted to discuss discharge planning with patient at bedside. Patient somewhat confused and unable to answer questions appropriately. CM will try back at later time. CM will continue to follow and assist as needed with discharge planning / needs. DCPIA - Discharge Planning Initial Assessment Updated by [email or web address]: Latisha Akbar on 04/22/18 6:12 pm * Is the patient Alert and Oriented? No * PCP DR. MATA; * Preadmission Environment Homeless * Other Environment Sister Shannan Brown states he lives on the streets * ADLs Independent * List name and contact numbers for known caregivers / representatives who currently or will assist patient after discharge: Shannan Brown - - ALEXUS - [phone] * Verbal permission to speak to the caregivers and representatives has been obtained from the patient. N/A * Community resources currently utilized None * Can the patient safely return to the preadmission environment? No * Has this patient been hospitalized within the prior 30 days at any hospital? No Last DP export: 04/22/18 5:20 p Patient Name: SERGE BOWELS Page 58046 at 1828 All edits/amendments must be made on the electronic document DICTATION DATE: 04/22/181826 MARKETING CONTENT COORDINATOR: TENZIN 04/22/181826 RPT#: [id number] DC DATE: STATUS: ADM IN [facility] [address] [place] [address] END OF REPORT
[2018-04-22 20:41] LABS: ANION GAP 13.8 mmol/L (8-16); CALCIUM 8.8 mg/dL (8.5-10.1); CARBON DIOXIDE 28.6 mmol/L (21.0-32.0); CREATININE - SERUM 1.3 mg/dL (0.6-1.3); POTASSIUM - SERUM 3.4 mmol/L (3.5-5.1)
[2018-04-23] VITALS (18 sets, daily range): BP systolic 100–151; BP diastolic 63–797
[2018-04-23 05:06] LABS: BASOPHILS 0.4 % (0-2); EOSINOPHILS 4.6 % (0-7); HEMATOCRIT 34.8 % (42.0-54.0); HEMOGLOBIN 10.8 g/dL (13.5-17.5); IMMATURE GRANULOCYTES 1.4 % (0-5); MCH 31.6 pg (26.0-34.0); MCV 101.8 fL (80.0-100.0); MEAN PLATELET VOLUME 9.2 fL (7.4-10.4); MONOCYTES 3.9 % (2-11); NEUTROPHILS 77.7 % (40-80); PLATELET COUNT 126 10x3/uL (130-400); RBC 3.42 10x6/uL (4.20-6.10)
[2018-04-23 05:17] LABS: ANION GAP 8.9 mmol/L (8-16); CALCIUM 8.6 mg/dL (8.5-10.1); CARBON DIOXIDE 30.3 mmol/L (21.0-32.0); CREATININE - SERUM 1.3 mg/dL (0.6-1.3); POTASSIUM - SERUM 3.2 mmol/L (3.5-5.1)
--- NOTE | 2018-04-24 16:55 | MORECARE ---
CASE MANAGEMENT DISCHARGE SUMMARY PATIENT: SERGE BOWLES UNIT: [id number] ADM DATE: 04/13/18 AGE: 57 : 60 SEX: M ROOM/BED: D.2314 AUTHOR: KIERA LAURENT PHYSICIAN: REFERRING PHYSICIAN: NICOLASA WARE MD DATE OF SERVICE: 04/24/18 Discharge Plan Patient Name: SERGE BOWLES Facility: [facility]:[place] : 1960 Planned Disposition: Hospice Home Anticipated Discharge Date: Discharge Date: 04/23/2018 Expected LOS: Initial Reviewer: [email or web address] Initial Review Date: 04/16/2018 Generated: 04/24/18 5:55 pm Comments DCP- Discharge Planning Updated by [id number]: Latisha Akbar on 04/22/18 5:[address] Patient Name: SERGE BOWLES Admission Status: ER Accout number: [id number] Admission Date: 04-13-2018 : 1960 Admission Diagnosis:GASTROINTESTINAL HEMORRHAGE, UNSPECIFIED Attending: NICOLASA WARE Current LOS: 9 Anticipated DC Date: Planned Disposition: Hospice Home Primary Insurance: MEDICAID [place] Discharge Planning Comments: CM was finally able to locate sister Shannan Brown [phone]. Shannan states that patient doesn't have a home that he lives on the streets. Patient is very confused and unable to converse or make decisions. Shannan and patients uncle Christos Barrett [phone] stated that he doesn't have any children or spouse. Mother and father are . He has one other sibling (brother) that lives in [place]. Shannan stated that she has spoken with him earlier about patient. Family requested to speak with physician about comfort care. Dr. Ware spoke with family and CM received order for Hospice care. CM called and spoke with Jayesh Harvey with [facility] regarding referral. Jayesh stated he would be here shortly to visit with family. CM will continue to follow and assist as needed with discharge planning / needs. Community Relations Coordinator: Latisha Akbar DCP- Discharge Planning Updated by [email or web address]: Latisha Akbar on 04/18/18 1:[address] CM attempted to visit with patient for discharge planning. Patient is confused and yelling out . CM attempted to call contact listed Kiara Brown (sister) [phone]. Received an answer from a lady who isn't Kiara Brown. CM will attempt to try to find a family member for contact information. CM will continue to follow and assist as needed with discharge planning / needs DCP- Discharge Planning Updated by [id number]: Latisha Akbar on 04/17/18 4:[address] CM attempted to visit with patient regarding discharge planning / needs. Patient just arrived back from procedure and currently sedated. CM will check back later. CM will continue to follow and assist as needed with discharge planning / needs. DCP- Discharge Planning Updated by [email or web address]: Latisha Akbar on 04/16/18 7:[address] CM attempted to discuss discharge planning with patient at bedside. Patient somewhat confused and unable to answer questions appropriately. CM will try back at later time. CM will continue to follow and assist as needed with discharge planning / needs. DCPIA - Discharge Planning Initial Assessment Updated by [email or web address]: Latisha Akbar on 04/22/18 6:12 pm * Is the patient Alert and Oriented? No * PCP DR. MATA; * Preadmission Environment Homeless * Other Environment Sister Shannan Brown states he lives on the streets * ADLs Independent * List name and contact numbers for known caregivers / representatives who currently or will assist patient after discharge: Shannan Brown - - POA - [phone] * Verbal permission to speak to the caregivers and representatives has been obtained from the patient. N/A * Community resources currently utilized None * Can the patient safely return to the preadmission environment? No * Has this patient been hospitalized within the prior 30 days at any hospital? No Last DP export: 04/22/18 5:28 p Patient Name: SERGE BOWLES Page 67997 at 1659 All edits/amendments must be made on the electronic document DICTATION DATE: 04/24/181654 FOOD PREPARATION SUPERVISOR: TENZIN 04/24/181654 RPT#: [id number] DC DATE:04/23/18 STATUS: DIS IN [facility] [address] [place] [address] END OF REPORT
== END 2018-04-23 19:05 | disposition hospice, inpatient (51) | DRG 356 ==
LOC: D.ER 12:56 → D.ICU 20:55 → D.EDHOLD 20:55 → D.ICU 21:00
PROVIDERS: Family Medicine; General Practice; Internal Medicine Gastroenterology; Radiology Vascular & Interventional Radiology; ADMIT Internal Medicine Nephrology
PROC: 0W3F3ZZ Control Bleeding in Abdominal Wall, Percutaneous Approach (ICD-10-PCS; 2018-04-16)
PROC: 06L Lower Veins, Occlusion (ICD-10-PCS; principal; 2018-04-17 13:30)
DX: K94.01 Colostomy hemorrhage (principal); K72.00 Acute and subacute hepatic failure without coma; F17.203 Nicotine dependence unspecified, with withdrawal; F10.239 Alcohol dependence with withdrawal, unspecified; F10.231 Alcohol dependence with withdrawal delirium; F31.9 Bipolar disorder, unspecified; R16.1 Splenomegaly, not elsewhere classified; D75.89 Other specified diseases of blood and blood-forming organs; I10 Essential (primary) hypertension; K70.30 Alcoholic cirrhosis of liver without ascites

== ENCOUNTER 2018-04-23 16:33 | Inpatient (IN) | payer OTHER ==
[~2018-04-23] VITALS: Ht 188 cm; Wt 97.3 kg
[2018-04-23 18:12] VITALS: BP 100/63; BMI 27.5
--- NOTE | 2018-04-23 18:15 | NUR ---
REPORT CALLED TO [facility] FOR PENDING TRANSFER
--- NOTE | 2018-04-23 19:00 | NUR ---
MARY GARCIA, FROM DR JONES'S OFFICE HERE TO SEE PATIENT, NO NEW ORDERS AT THIS TIME
--- NOTE | 2018-04-23 19:39 | NUR ---
DOBHOFF, DC'D, ALL PREVIOUS ORDERS DC'D, INTIATED, MORPHINE PER DIEM PHYSICAL THERAPIST ASSISTANT AND NS PER HOSPICE ORDERS,
--- NOTE | 2018-04-23 19:51 | NUR ---
RECEIVED TO FLOOR VIA HOSPITAL BED, ACCOMPANIED BY HOSPITAL STAFF AND FAMILY MEMBER. PT IS AWAKE, EYES PARTIALLY OPENED, PT GROANED AND FLAILED ARMS DURING AND AFTER TOTAL ASSIST TRANSFER OVER TO BED IN ROOM. PT DOES NOT USE VERBAL COMMUNICATION OTHER THAN GROANING. PT'S BREATHING IS LABORED AND HEAVY, SOME WETNESS HEARD WELL, HOB RAISED 45 DEGREES. 2L O2 IN USE VIA NC. SPO2 92%. O2 INCREASED TO 3L. ABDOMEN DISTENDED, BOWEL SOUNDS ARE ACTIVE. COLOSTOMY PRESENT IN LLQ. TAVARES CATHETER ALSO IN PLACE, CLEANEDPERINEAL AREA SURROUNDING. DRY, REDDENED AREA IN GROIN AND ON SCROTUM. MIDLINE IV TO LEFT UPPER ARM, NORMAL SALINE AND MORPHINE VIA TRANSPORT ENGINEER INFUSING. SURROUNDING SKIN WNL. PT DOES NOT RESPOND TO SIMPLE COMMANDS. SIDE RAILS X 2, YELLOW GOWN APPLIED. WILL CONTINUE TO MONITOR.
--- NOTE | 2018-04-23 20:28 | NUR ---
REC'D PER BED FROM ICU TO ROOM 2205. PT IS DNR HX LIVER CANCER. AT BEDSIDE SKIN JAUNDICE. PT HAS O2 AT 3L/M PER NC. PT HAS COLOSTOMY TO LEFT LOWER QUAD. CONNECTED TO TAVARES BAG WITH GREEN DRAINAGE. TAVARES TO BEDSIDE DRAINAGE WITH DARK COLORED JUAN URINE. IV PATENT VANESSA PICC LINE OF NS AT 20CC'S/HR. DRAWER IN STITCH BONDING MACHINE OF MORPHINE IN USE RUNNING AT 1MG/HR CONTINUOUSLY.VS TAKEN
[2018-04-23 20:41] VITALS: BP 152/102
--- NOTE | 2018-04-24 00:01 | NUR ---
SPO2 91% ON 3L. PT IS MOUTH BREATHING, NC SET ON MOUTH. WILL CONTINUE TO MONITOR.
[2018-04-24 00:33] VITALS: BP 126/66
--- NOTE | 2018-04-24 08:07 | NUR ---
RESTING QUIETLY IN BED. NO VERBAL RESPONSE TO STIMULATION. APPEARS ANXIOUS. WILL MONITOR. LUNGS ARE CLEAR BIALTERALLY, NO COUGH NOTED. SKIN IS INTACT WITHOUT REDNESS. OSTOMY IS PATENT WITH LIQUID COMMING OUT. TAVARES PATENT WITH CLOUDY YELLOW URINE. MIDLINE TO LEFT UPPER ARM IS PATENT WITHOUT REDNESS AT INSERTION SITE. NO NEEDS NOTED.
[2018-04-24 08:42] VITALS: Ht 188 cm; Wt 97.3 kg
[2018-04-24 09:04] VITALS: BP 110/73
--- NOTE | 2018-04-24 13:28 | NUR ---
REPOSITIONED TO RIGHT SIDE PER STAFF. SISTER AT BEDSIDE. NO NEEDS NOTED.
--- NOTE | 2018-04-24 18:15 | NUR ---
SPOKE WITH DIMITRIOS NARANJO RN RE CONTINUED AGITATION EVEN WITH PRN MEDS. NEW ORDERS RECEIVED THROUGH HER FROM DR. JNOES.
[2018-04-24 20:00] VITALS: BP 133/70
--- NOTE | 2018-04-25 06:11 | NUR ---
I have reviewed this patient and I concur with the Shift Assessment completed by the Licensed Practical Nurse today this shift.
--- NOTE | 2018-04-25 07:45 | NUR ---
RESTING QUIETLY IN BED AT THIS TIME. RESPIRATIONS ARE AT 14 WITH 10-15 SECOND PERIDS OF APNEA. WILL MONITOR. LUNGS ARE DIMINISHED THROUGHOUT, NO COUGH NOTED. SKIN IS INTACT WITHOUT REDNESS. OSTOMY IS PATENT WITH NO OUTPUT AT THIS TIME. TAVARES PATENT WITH SCANT CLOUDY YELLOW URINE. MIDLINE TO LEFT UPPER ARM IS PATENT WITHOUT REDNESS AT INSERTION SITE. NO NEEDS NOTED.
[2018-04-25 08:06] VITALS: BP 157/94
--- NOTE | 2018-04-25 08:22 | NUR ---
SPOKE WITH SURESH, PATIENTS SISTER, RE CURRENT RESPIRATORY CONDITION. SHE IS COMMING UP .
--- NOTE | 2018-04-25 08:42 | NUR ---
RESTLESS AND AGITATED. GIVEN 2MG ATIVAN SLOW IVP FOR SAME. WILL MONITOR.
--- NOTE | 2018-04-25 10:00 | NUR ---
VERY RESTLESS. HOSPICE NURSE REPORTS PAIN LEVEL 10. GIVEN 2MG BOLUS MORPHINE AND 2MG ATIVAN IVP FOR THIS. WILL MONITOR.
--- NOTE | 2018-04-25 13:50 | NUR ---
GETTING RESTLESS AND AGITATED. FAMILY REQUESTED AND GIVEN 2MG ATIVAN SLOW IVP FOR SAME. WILL MONITOR.
--- NOTE | 2018-04-25 18:06 | NUR ---
GETTING AGITATED. FAMILY REQUESTED AND PATIENT GIVEN 2MG ATIVAN SLOW IVP FOR SAME. WILL MONITOR.
--- NOTE | 2018-04-25 18:35 | NUR ---
RESTING QUIELTY AT THIS TIME. NO NEEDS NOTED.
[2018-04-25 20:00] VITALS: BP 114/72
--- NOTE | 2018-04-26 06:10 | NUR ---
I have reviewed this patient and I concur with the Shift Assessment completed by the Licensed Practical Nurse today this shift.
[2018-04-26 08:22] VITALS: BP 117/60
--- NOTE | 2018-04-26 08:31 | NUR ---
PT RESTING ON LEFT SIDE. BREATH SOUNDS CLEAR BILAT, 3L O2 PER NC. MIDLINE TO LEFT UPPER ARM, PATENT, DRESSING CLEAN DRY AND INTACT. FAMILY AT BEDSIDE. BED LOW, CALL LIGHT IN REACH. NO OTHER NEEDS.
--- NOTE | 2018-04-26 19:30 | NUR ---
PT LYING IN BED W/ EYES HALF OPEN. PT FLAILING ARMS AND LEGS AROUND WHILE GROANING. PT GIVEN ATIVAN AND MORPHINE BOLUS GIVEN RIGHT BEFORE THIS NURSE RECIEVED PT. LUNGS SOUNDS DIMINISHED. PT SOUNDING SLIGHTLY WET. O2 3LNC IN MOUTH. PT IS A MOUTH BREATHER. COLOSTOMY NOTED W/O OUTPUT AT THIS TIME. TAVARES DRAINING DARK YELLOW URINE. SISTER AT BEDSIDE STATES PT HAS BEEN VERY RESTLESS THIS AFTERNOON. WILL CONTINUE TO MONITOR
[2018-04-26 19:54] VITALS: BP 138/86
--- NOTE | 2018-04-26 20:15 | NUR ---
PT CONTINUES TO BE RESTLESS. MOVING AROUND IN BED AND MOANING. GAVE ATIVAN ORDERED. PT CALMED DOWN SLIGHTLY. WILL CONTINUE TO MONITOR
--- NOTE | 2018-04-26 21:50 | NUR ---
PT LYING ON LEFT SIDE, CONTINUES TO BED RESTLESS. MOANING AND MOVING AROUND IN BED. GAVE ATIVAN AND MORPHINE BOLUS. PT RESTING WELL UPON REASSESSMENT. WILL CONTINUE TO MONITOR
--- NOTE | 2018-04-26 23:37 | NUR ---
PT LYING ON RIGHT SIDE, MOANING SLIGHTLY OFF AND ON. SISTER STATES SHE CAN TELL PT IS STILL A LITTLE UNCOMFORTABLE. GAVE ATIVAN ORDERED. UPON REASSESSMENT PT WAS RESTING WELL AND SISTER STATES SHE THINKS ATIVAN IS WORKING. LLOYD CONTINUE TO MONTIOR
--- NOTE | 2018-04-27 01:12 | NUR ---
PT RESTLESS AND MOVING AROUND IN BED MOANING. GAVE MORPHINE BOLUS AND ATIVAN. WILL CONTINUE TO MONITOR
--- NOTE | 2018-04-27 02:16 | NUR ---
PT MOVING AROUND IN BED MOANING. GAVE ATIVAN ORDERED. UPON REASSESSMENT PT HAD STARTED TO RELAX LAYING ON LEFT SIDE W/ BREATHING SLOW AND EVEN.
--- NOTE | 2018-04-27 03:18 | NUR ---
PT MOVING AROUND IN BED GROANING. GAVE ATIVAN ORDERED. WILL CONTINUE TO MONITOR
--- NOTE | 2018-04-27 04:15 | NUR ---
PT RESTLESS AND GROANING, PULLING AT LINES AND MOVING AROUND IN BED. GAVE MORPHINE BOLUS AND ATIVAN. WILL CONTINUE TO MONITOR
--- NOTE | 2018-04-27 05:30 | NUR ---
PT LYING ON LEFT SIDE MOANING SLIGHTLY SLIGHTLY AND MOVING AROUND OFF AND ON. GAVE ATIVAN ORDERED. WILL CONTINUE TO MONITOR
--- NOTE | 2018-04-27 07:15 | NUR ---
PT RESTLESS AND MOANING. GAVE ATIVAN AND MORPHINE BOLUS ORDERED. WILL CONTINUE TO MONITOR
--- NOTE | 2018-04-27 08:17 | NUR ---
PT RESTING IN BED. BREATH SOUNDS CLEAR BILAT, 3L O2 PER NC. COLOSTOMY TO LEFT SIDE, NO OUTPUT. MIDLINE TO LEFT UPPER ARM, PATENT, DRESSING CLEAN DRY AND INTACT. TAVARES IN PLACE, URINE DARK YELLOW. PT GROANING OFTEN. WELDER OPERATOR IN PLACE. FAMILY AT BEDSIDE. BED LOW, CALL LIGHT IN REACH. NO OTHER NEEDS AT THIS TIME.
[2018-04-27 08:42] VITALS: BP 109/70
--- NOTE | 2018-04-27 19:45 | NUR ---
PT LYING IN BED RESTLESS, MOANING. GIVING PT ORDERED ATIVAN AND MORPHINE BOLUS PRN. SISTER AT BEDSIDE. TAVARES DRAINING BLOODY URINE. NOT OUTPUT INTO COLOSTOMY. LEFT UPPER ARM ML INFUSING NS @ 20 W/ MORPHINE SWINGING CUT OFF SAW OPERATOR. O2 3LNC. WILL CONTINUE TO MONITOR
[2018-04-27 21:04] VITALS: BP 105/60
--- NOTE | 2018-04-27 22:00 | NUR ---
PT LYING IN BED MOVING AROUND RESTLESS AND MOANING. SISTER AT BEDSIDE. GIVING ATIVAN AND MORPHINE BOLUS PRN. WILL CONTINUE TO MONITOR
--- NOTE | 2018-04-28 02:15 | NUR ---
HOSPICE NURSE NOTIFIED OF PT GROANING AND RESTLESSNESS. ORDERS TO INCREASE MORPHINE SUPERVISOR BRIDGES AND BUILDINGS TO 6MG CONT W/ 4MG BOLUS Q2H. DISCUSSED CHANGE W/ SISTER WHO VERBALIZED UNDERSTANDING. CHANGED SETTINGS TO SUPERVISOR BRIDGES AND BUILDINGS AT THIS TIME. WILL CONITNUE TO MONITOR
--- NOTE | 2018-04-28 03:15 | NUR ---
PT RESP SLOW AND SHALLOW. APPEARS COMFORTABLE. SISTER AT BEDSIDE. WILL CONTINUE TO MONITOR
--- NOTE | 2018-04-28 03:45 | NUR ---
PT GROANING AND MOVING LEGS UP AND DOWN. GAVE MORPHINE BOLUS. WILL CONTINUE TO MONITOR
--- NOTE | 2018-04-28 07:15 | NUR ---
MORNING ASSESSMENT COMPLETE. SEE ASSESSMENT FLOWSHEET FOR FURTHER DETAILS. PT LYING IN BED- EYES CLOSED. MANAGING PAIN. NO SIGNS OF DISTRESS NOTED. SISTER AT BEDSIDE. CL IN REACH. SIDE RAILS UP X3 FOR PATIENT SAFETY
[2018-04-28 07:58] VITALS: BP 176/80
--- NOTE | 2018-04-28 12:34 | MORECARE ---
CASE MANAGEMENT DISCHARGE SUMMARY PATIENT: SERGE BOWLES UNIT: [id number] ADM DATE: 04/23/18 AGE: 57 : 60 SEX: M ROOM/BED: D.2205 AUTHOR: KIERA LAURENT PHYSICIAN: REFERRING PHYSICIAN: SUSAN JONES MD DATE OF SERVICE: 04/28/18 Discharge Plan Patient Name: SERGE BOWLES Facility: [facility]:[place] : 1960 Planned Disposition: Anticipated Discharge Date: Discharge Date: Expected LOS: Initial Reviewer: [email or web address] Initial Review Date: 04/23/2018 Generated: 04/28/18 1:34 pm Patient Name: SERGE BOWLES Page 64080 at 1234 All edits/amendments must be made on the electronic document DICTATION DATE: 04/28/18 1234 DRY MILL WORKER: TENZIN 04/28/18 1234 RPT#: [id number] DC DATE: STATUS: ADM IN [facility] [address] [place] [address] END OF REPORT
[2018-04-28 22:13] VITALS: BP 117/67
--- NOTE | 2018-04-29 00:26 | NUR ---
PATIEN RESTING WITH NO S/S OF DISTRESS BREATHING FROM MOUTH. SHORT SHALOW BREATH. O2 IN PLACE PLACED IN MOUTH WILL CONTIUE WITH PLAIN OF CARE PATIENT IS HOSPICE CARE.
--- NOTE | 2018-04-29 01:57 | NUR ---
PATIENT PRESENTING WITH APENA Anil Monge CALLED REQUESTED WHEN SHE WENT HOME INFORMED THAT PATIENT IS HAVING APENA AT THIS TIME. SHE STATED SHE WOULD DRESS AND RETRUN TO BEDSIDE.
--- NOTE | 2018-04-29 03:31 | NUR ---
UNABLE TO PALPATE DISTAL PULSES, SKIN TO ARM, HAND AND FEET COOL TO TOUCH.SISTER AT BEDSIDE.
--- NOTE | 2018-04-29 04:16 | NUR ---
cALLED TO ROOM BY SISTER NO PULSE , NO RESPRATIONS. CALL TO [facility] TATTOO DESIGNER INSURANCE BILLER STATED TATTOO DESIGNER NURSE DIMITRIOS WILL RETRUN CALL.
--- NOTE | 2018-04-29 07:52 | NUR ---
0410 CALLED TO ROOM BY SISTER PATIENT TINA NO PULSE /RESPRATION, CALL TO [facility]. JOSE ALEJANDRO NARANJO RN CAME PRONOUNCED AT 0459 CAUSE OF ALCOHOLIC CIRRHOIS SAUCEDO CALLED [facility] REF # [id number] DOES NOT MEET CRITERIA SISTER TOOK ALL PERSONIAL BELONGINGS HOME AT START OF SHIFT. [facility] PICKED UP BODY
--- NOTE | 2018-04-29 11:23 | MORECARE ---
CASE MANAGEMENT DISCHARGE SUMMARY PATIENT: SERGE BOWLES UNIT: [id number] ADM DATE: 04/23/18 AGE: 57 : 60 SEX: M ROOM/BED: D.2205 AUTHOR: KIERA LAURENT PHYSICIAN: REFERRING PHYSICIAN: SUSAN JONES MD DATE OF SERVICE: 04/29/18 Discharge Plan Patient Name: SERGE BOWLES Facility: [facility]:[place] : 1960 Planned Disposition: Anticipated Discharge Date: Discharge Date: 04/29/2018 Expected LOS: 0 Initial Reviewer: [email or web address] Initial Review Date: 04/23/2018 Generated: 04/29/18 12:23 pm Last DP export: 04/28/18 11:34 am Patient Name: SERGE BOWLES Page 15158 at 1123 All edits/amendments must be made on the electronic document DICTATION DATE: 04/29/18 112 COUNTERSINKER BALANCE SCREW HOLE: TENZIN 04/29/18 1123 RPT#: [id number] DC DATE:04/29/18 STATUS: DIS IN [facility] [address] [place] [address] END OF REPORT
== END 2018-04-29 07:50 | DRG 951 ==
LOC: D.ICU 16:33 → D.MS 19:45
PROVIDERS: ADMIT Legal Medicine; ATTEND Legal Medicine
DX: Z51.5 Encounter for palliative care (principal)